=== PATIENT | male | born 1945 | race Caucasian/White ===

== ENCOUNTER 2020-03-14 15:50 | Inpatient (IN) | payer MEDICARE, OTHER ==
[~2020-03-14] VITALS: Ht 157.5 cm; Wt 87.5 kg
[~2020-03-14 15:50] MED LIST: ASPI-1238 PO; ASPI-808 PO; ATOR20TA66 PO; CLOP75TA28 PO; LISI-556 PO; PANT40TA52 PO
--- NOTE | 2020-03-14 16:11 | ED General ---
General Chief Complaint: General Problems/Pain Stated Complaint: INABILITY TO MOVE Nursing Triage Note: PT BROUGHT IN BY BROTHER AND FRIEND FOR INABILITY TO WALK. BROTHER STATES HE WENT TO CHECK ON PT AND FOUND PT SITTING IN CHAIR UNABLE TO MOVE. PT TOLD HIM HED BEEN SITTING THERE FOR 2-3 DAYS. PT IS ALERT AND ORIENTED. PT IS COVERED IN URINE AND FECES. PT IS COMPLAINING OF INABILITY TO WALK, AND SKIN ISSUES ON GENITAL AREA. PT HAS SORES AND SCABBING TO GENITAL AND HIP AREAS. PT DOES NOT KNOW WHEN SYMPTOMS STARTED, STATES WOKE UP WITH THEM. Nursing Sepsis Screen: No Definite Risk History of Present Illness Date Seen by Provider: Mar 14, 2020 Time Seen by Provider: 16:10 Initial Comments Patient is a 74-year-old male who presents to the emergency room with a chief complaint of generalized weakness. Patient states that he has not been able to move for a couple of days. He seems to be a poor historian. No specific complaints of chest pain, shortness of breath, abdominal pain. Reportedly the patient is homeless and was found by his brother sitting in a chair. Patient states he has been unable to move out of the chair for 2 or 3 days. He is grossly unkempt. Patient alert staff to a rash on his genital area presentation. He appears quite tired and like he does not feel well. No specific complaints of dysuria, urgency, frequency. Review of systems is difficult secondary to the patient's seeming mild confusion versus some dementia. Timing/Duration: 2-3 Days Severity: Severe Allergies and Home Medications Allergies Coded Allergies: No Known Drug Allergies (Unverified , 03/14/20) Home Medications Amlodipine Besylate 5 Mg Tablet, 5 MG PO DAILY, (Reported) Atorvastatin Calcium 40 Mg Tablet, 40 MG PO HS, (Reported) Clopidogrel Bisulfate 75 Mg Tablet, 75 MG PO DAILY, (Reported) Hydrochlorothiazide 12.5 Mg Tablet, 12.5 MG PO DAILY, (Reported) Lisinopril 5 Mg Tablet, 5 MG PO DAILY, (Reported) Patient Home Medication List Home Medication List Reviewed: Yes Review of Systems Review of Systems Constitutional: malaise EENTM: no symptoms reported Respiratory: no symptoms reported Cardiovascular: no symptoms reported Gastrointestinal: no symptoms reported Genitourinary: no symptoms reported Musculoskeletal: muscle pain Skin: rash All Other Systems Reviewed Negative Unless Noted: Yes Past Ztcloue-Njpahn-Hwudcj Hx Patient Social History Alcohol Use: Past History Recreational Drug Use: No Smoking Status: Former Smoker Type Used: Cigarettes, Smokeless Tobacco Recent Foreign Travel: No Contact w/Someone Who Travel: No Recent Infectious Disease Expo: No Recent Hopitalizations: No Immunizations Up To Date Tetanus Booster (TDap): Unknown Past Medical History Surgeries: Yes Respiratory: Yes Cardiac: Yes Neurological: Yes Stroke HEENT: Yes Hearing Impairment: Hard of Hearing Integumentary: Yes Physical Exam Vital Signs Vital Signs - First Documented 03/14/20 03/14/20 15:50 22:53 Temp 36.5 Pulse 110 Resp 25 B/P (MAP) 88/62 (71) Pulse Ox 97 O2 Delivery Room Air FiO2 21 Capillary Refill : Less Than 3 Seconds Height, Weight, BMI Height: '" Weight: lbs. oz. kg; 39.00 BMI Method: General Appearance: No Apparent Distress, Chronically ill Eyes: Bilateral Eye Normal Inspection, Bilateral Eye PERRL, Bilateral Eye EOMI Neck: Full Range of Motion Respiratory: Lungs Clear, Normal Breath Sounds, No Accessory Muscle Use, No Respiratory Distress Cardiovascular: Regular Rate, Rhythm, No Murmur Gastrointestinal: Non Tender, Soft Extremity: Normal Capillary Refill, Normal Inspection, Normal Range of Motion, Non Tender Neurologic/Psychiatric: Alert, Oriented x3, No Motor/Sensory Deficits, Normal Mood/Affect, die maker II-XII Norm as Tested Skin: Warm/Dry, Other (Patient has erythema in the grown with skin breakdown over the perineum, scrotum, penis. Galded rash extends to the buttocks. macerated in patchy areas. No indurations. No crepitance to the skin. tender to palpation) Focused Exam Sepsis Stage: Severe Sepsis Possible Source: Skin/Soft Tissue Lactate Level 03/14/20 16:15: Lactic Acid Level 8.32*H 03/14/20 17:56: Lactic Acid Level 1.67 Time of Focused Exam: 16:15 Respiratory: Lungs Clear, Normal Breath Sounds Cardiovascular: Regular Rate, Rhythm, Tachycardia Peripheral Pulses: 2+ Radial Pulses (R), 2+ Radial Pulses (L) Skin: warm/dry Lactic Acid Level Within 3hrs of presentation: Admin fluids, Admin 30ml/kg IBW due to BMI>30, Admin ABX, Blood cultures prior to ABX's, Focus exam, Lactate level Progress/Results/Core Measures Suspected Sepsis Recent Fever Within 48 Hours: No Infection Criteria Present: None New/Unexplained Altered Menta: No Sepsis Screen: No Definite Risk Within 3hrs of presentation: Admin fluids, Admin 30ml/kg IBW due to BMI>30, Admin ABX, Blood cultures prior to ABX's, Lactate level SIRS Temperature: Pulse: 110 Respiratory Rate: 25 Laboratory Tests 03/15/20 03:04: White Blood Count 8.0 03/16/20 05:38: White Blood Count 5.6 03/17/20 05:27: White Blood Count 4.5 Blood Pressure 88 /62 Mean: 71 03/14/20 16:15: Lactic Acid Level 8.32*H 03/14/20 17:56: Lactic Acid Level 1.67 Laboratory Tests 03/14/20 16:15: Total Bilirubin 1.0 03/15/20 03:04: Creatinine 1.95H, Platelet Count 232 03/16/20 05:38: Creatinine 1.35H, Platelet Count 210 03/17/20 05:27: Creatinine 1.23, Platelet Count 194 Results/Orders Lab Results Laboratory Tests Test 03/16/20 05:38 03/17/20 05:27 Range/Units White Blood Count 5.6 4.5 4.3-11.0 10^3/uL Red Blood Count 3.21 L 3.36 L 4.30-5.52 10^6/uL Hemoglobin 9.6 L 9.9 L 13.3-17.7 g/dL Hematocrit 30 L 31 L 40-54 % Mean Corpuscular Volume 94 93 80-99 fL Mean Corpuscular Hemoglobin 30 30 25-34 pg Mean Corpuscular Hemoglobin Concent 32 32 32-36 g/dL Red Cell Distribution Width 13.5 13.3 10.0-14.5 % Platelet Count 210 194 130-400 10^3/uL Mean Platelet Volume 10.7 10.6 9.0-12.2 fL Immature Granulocyte % (Auto) 0 0 % Neutrophils (%) (Auto) 83 H 77 H 42-75 % Lymphocytes (%) (Auto) 9 L 13 12-44 % Monocytes (%) (Auto) 5 6 0-12 % Eosinophils (%) (Auto) 2 4 0-10 % Basophils (%) (Auto) 0 0 0-10 % Neutrophils # (Auto) 4.6 3.5 1.8-7.8 10^3/uL Lymphocytes # (Auto) 0.5 L 0.6 L 1.0-4.0 10^3/uL Monocytes # (Auto) 0.3 0.3 0.0-1.0 10^3/uL Eosinophils # (Auto) 0.1 0.2 0.0-0.3 10^3/uL Basophils # (Auto) 0.0 0.0 0.0-0.1 10^3/uL Immature Granulocyte # (Auto) 0.0 0.0 0.0-0.1 10^3/uL Sodium Level 138 139 135-145 MMOL/L Potassium Level 3.7 3.6 3.6-5.0 MMOL/L Chloride Level 113 H 112 H 98-107 MMOL/L Carbon Dioxide Level 16 L 17 L 21-32 MMOL/L Anion Gap 9 10 5-14 MMOL/L Blood Urea Nitrogen 39 H 24 H 7-18 MG/DL Creatinine 1.35 H 1.23 0.60-1.30 MG/DL Estimat Glomerular Filtration Rate 52 58 BUN/Creatinine Ratio 29 20 Glucose Level 88 98 70-105 MG/DL Calcium Level 7.6 L 7.5 L 8.5-10.1 MG/DL Phosphorus Level 2.4 2.3-4.7 MG/DL Magnesium Level 2.0 1.7 1.6-2.4 MG/DL Total Creatine Kinase 2629 H 30-200 U/L My Orders Vital Signs/I&O 03/16/20 03/16/20 03/16/20 03/17/20 19:37 21:00 23:54 03:59 Temp 36.0 36.5 36.6 Pulse 101 64 89 Resp 18 21 20 B/P (MAP) 112/73 (86) 141/56 (84) 152/76 (101) Pulse Ox 96 99 96 97 O2 Delivery Room Air Room Air Room Air Room Air Capillary Refill : Less Than 3 Seconds Blood Pressure Mean: 71 Progress Note : Time: 17:20 Progress Note 74-year-old male presents to the emergency room with a chief complaint of 2-week to walk. Evaluation today includes a physical exam, severe sepsis work-up including Chem-12 lactic acid CRP CBC urinalysis blood cultures chest x-ray. Patient is volume resuscitated with 3 L of IV as per 30 mL/kg of fluids bolus. Blood pressure initially systolic of 88 has rebounded nicely with only the first liter of fluids to a systolic of 130s. Case is discussed with Dr. Mary Angel on for the hospitalist group who accepts the patient for admission to the ICU as well as Dr. Tenorio who is on-call for general surgery regarding the infection/cellulitis in his groin and buttocks. Patient is advised of the plan of care, he is agreeable. All questions are sought and answered. I attest a focused exam. Critical Care Note Critical Care Start Time: 16:10 Stop Time: 17:20 Total Time (minutes) 40 minutes critical care time in the evaluation and management of this patient with lactic acidosis, severe sepsis acute renal failure secondary to rhabdomyolysis. Evaluation and management of fluid resuscitation, discussion with hospitalist as well as discussion with general surgery Departure Communication (Admissions) Time/Spoke to Admitting Phy: 17:10 Discussed with Mary Martínez on for hospitalist group recommends ICU admission consultation with general surgery Time/Spoke to Consulting Phy: 17:[address] Tenorio on for general surgery he will see Impression Primary Impression: Severe sepsis Additional Impressions: Acute renal failure Qualified Codes: N17.9 - Acute kidney failure, unspecified Rhabdomyolysis Qualified Codes: M62.82 - Rhabdomyolysis Disposition: 09 ADMITTED INPATIENT Condition: Critical Admissions Decision to Admit Reason: Admit from ER (General) Decision to Admit/Date: Mar 14, 2020 Time/Decision to Admit Time: 17:15 WILMER DAVID MD Mar 14, 2020 16:11
[2020-03-14] MEDS: NS IV 1000 ML 1,000 ML IV SCH ×5 (16:23→23:30)
[2020-03-14 16:27] LABS: BASOPHILS % (AUTO) 0 % (0-10); EOSINOPHILS % (AUTO) 0 % (0-10); HEMATOCRIT 45 % (40-54); HEMOGLOBIN 14.5 g/dL (13.3-17.7); LYMPHOCYTES # (AUTO) 0.4 10^3/uL (1.0-4.0); LYMPHOCYTES % (AUTO) 3 % (12-44); MEAN CORPUSCULAR HEMOGLOBIN 30 pg (25-34); MEAN CORPUSCULAR HGB CONC 32 g/dL (32-36); MEAN CORPUSCULAR VOLUME 93 fL (80-99); MEAN PLATELET VOLUME 10.4 fL (9.0-12.2); MONOCYTES # (AUTO) 0.8 10^3/uL (0.0-1.0); MONOCYTES % (AUTO) 6 % (0-12); NEUTROPHILS % (AUTO) 90 % (42-75); PLATELET COUNT 370 10^3/uL (130-400); WHITE BLOOD COUNT 12.2 10^3/uL (4.3-11.0)
[2020-03-14 16:32] LABS: CLARITY,URINE CLEAR; COLOR,URINE YELLOW; GLUCOSE, URINE (UA) NEGATIVE (NEGATIVE); KETONES,URINE TRACE (NEGATIVE); LEUKOCYTE ESTERASE ,URINE NEGATIVE (NEGATIVE); NITRITE,URINE NEGATIVE (NEGATIVE); PH,URINE 5.5 (5-9); PROTEIN,URINE 1+ (NEGATIVE)
[2020-03-14 16:41] LABS: ALBUMIN 4.4 GM/DL (3.2-4.5)
[2020-03-14 16:42] LABS: POTASSIUM 5.7 MMOL/L (3.6-5.0)
[2020-03-14 16:43] LABS: CALCIUM 10.2 MG/DL (8.5-10.1)
[2020-03-14 16:44] LABS: TOTAL PROTEIN 7.9 GM/DL (6.4-8.2)
[2020-03-14 16:48] LABS: CREATININE SERUM 2.34 MG/DL (0.60-1.30)
[2020-03-14 16:52] LABS: BAND NEUTROPHILS 0 %; BASOPHILS % (MANUAL) 0 %; EOSINOPHILS % (MANUAL) 0 %; LYMPHOCYTES % (MANUAL) 4 %; MONOCYTES % (MANUAL) 2 %; NEUTROPHILS % (MANUAL) 94 %; POIKILOCYTOSIS SLIGHT
[2020-03-14 16:57] LABS: BILIRUBIN,URINE 1+ (NEGATIVE)
--- NOTE | 2020-03-14 16:57 | Diagnostic Imaging Report ---
INDICATION: Sepsis. COMPARISON: 02/06/2015. FINDINGS: Lungs are clear. No failure, effusion or pneumothorax. IMPRESSION: Negative. Dictated by: Dictated on workstation # [id number]
[2020-03-14 16:59] LABS: AMORPHOUS SEDIMENT,UR FEW AMOR URATES /LPF; BACTERIA,URINE TRACE /HPF; GRANULAR CASTS,URINE 0-2 /LPF; HYALINE CASTS, URINE RARE /LPF; RBC,URINE RARE /HPF; WBC,URINE RARE /HPF
[2020-03-14] MEDS ORDERED: NS IV 1000 ML 1,000 ML IV SCH (16:59)
[2020-03-14] MEDS ORDERED: VANCOMYCIN INJECTION 1,000 MG in NS (IVPB) 250 ML IV ONE (17:00)
[2020-03-14] MEDS ORDERED: PIPERACILLIN SODIUM/TAZOBACTAM 4.5 GM in NS (IVPB) 100 ML IV ONE (17:00)
--- NOTE | 2020-03-14 19:16 | NUR ---
RECEIVED FROM ED, 74 YEAR OLD MALE WITH DX OF SEVERE SEPSIS, AND CELLULITIS. PT IS ALERT AND ORIENTED. STATES HE HASN'T BEEN ABLE TO WALK FOR A "FEW DAYS" AND HAS BEEN IN HIS RECLINER. BROTHER FOUND HIM SITTING IN URINE AND FECES. HE IS GUALDED TO THE POINT OF SCABS IN BILAT GROINS, TECTICLES, BUTTOCKS AND BACKS OF LEGS. WOUND CULTURE OBTAINED. ZINC OXIDE CREAM PLACED AFTER CLEANING. IV TO LEFT AC CAME OUT UPON TRANSFER TO BED. NEW ONE TO RIGHT WRIST BY JOHAN RODRIGUEZ AFTER MULTIPLE ATTEMPTS. PT IS NPO BUT KEEPS REQUESTING SOMETHING TO DRINK. DR FAJARDO CALLED, ORDER RECEIVED FOR CLEAR LIQUID DIET.
[2020-03-14] MEDS ORDERED: VASOPRESSIN INJECTION 20 UNIT in NS (IVPB) 100 ML IV SCH (19:24)
[2020-03-14] MEDS ORDERED: NOREPINEPHRINE 4 MG/250 ML 250 ML IV SCH (19:24)
[2020-03-14 19:30] VITALS: BP 140/67
[2020-03-14] MEDS ORDERED: EPINEPHrine 1 MG INJECTION 4 MG in NS (IVPB) 248 ML IV SCH (19:30)
[2020-03-14] MEDS ORDERED: CATHETER FLUSH 10 ML SYR IV PRN (19:30)
--- NOTE | 2020-03-14 19:30 | NUR ---
PT'S BROTHER, CHI, IS EMERGENCY CONTACT BUT PT DOES NOT KNOW HIS NUMBER
--- NOTE | 2020-03-14 19:36 | NUR ---
CR 2.34; CR CL ~28 (USED ADJ WT 71.7 KG); ACTUAL WT 97.5 KG; VANCO 1500 MG IV Q24H X 3 DAYS
[2020-03-14 20:00] VITALS: BP 93/57
[2020-03-14] MEDS ORDERED: VANCOMYCIN 1500 MG/NS 500 ML IVPB IV SCH ×2 (20:00)
[2020-03-14 21:00] VITALS: BP 116/62
[2020-03-14 22:00] VITALS: BP 99/58
[2020-03-14] MEDS ORDERED: KETOROLAC 15 MG/ML VIAL IVP ONE (22:15)
[2020-03-14] MEDS ORDERED: KETOROLAC 15 MG/ML VIAL ONE (22:21)
[2020-03-14 22:53] VITALS: BP 140/67
[2020-03-14] MEDS ORDERED: RT-ALBUTEROL SULF 2.5 MG/3 ML PRE-MIX VIAL INH PRN (23:00)
[2020-03-14 23:15] VITALS: BP 109/54
[2020-03-15] VITALS (20 sets, daily range): BP systolic 94–125; BP diastolic 40–67
[2020-03-15] MEDS: PIPERACILLIN/TAZO 4.5 GM/NS 100 ML IV SCH ×6 (00:58→16:27)
[2020-03-15 03:23] LABS: BASOPHILS % (AUTO) 0 % (0-10); EOSINOPHILS % (AUTO) 0 % (0-10); HEMATOCRIT 32 % (40-54); HEMOGLOBIN 10.3 g/dL (13.3-17.7); LYMPHOCYTES # (AUTO) 0.5 10^3/uL (1.0-4.0); LYMPHOCYTES % (AUTO) 6 % (12-44); MEAN CORPUSCULAR HEMOGLOBIN 30 pg (25-34); MEAN CORPUSCULAR HGB CONC 32 g/dL (32-36); MEAN CORPUSCULAR VOLUME 93 fL (80-99); MEAN PLATELET VOLUME 10.3 fL (9.0-12.2); MONOCYTES # (AUTO) 0.6 10^3/uL (0.0-1.0); MONOCYTES % (AUTO) 7 % (0-12); NEUTROPHILS # (AUTO) 6.9 10^3/uL (1.8-7.8); NEUTROPHILS % (AUTO) 87 % (42-75); PLATELET COUNT 232 10^3/uL (130-400)
[2020-03-15 03:38] LABS: POTASSIUM 4.4 MMOL/L (3.6-5.0)
[2020-03-15 03:39] LABS: CALCIUM 7.9 MG/DL (8.5-10.1)
[2020-03-15 03:43] LABS: CREATININE SERUM 1.95 MG/DL (0.60-1.30); PHOSPHORUS 3.9 MG/DL (2.3-4.7)
[2020-03-15 03:46] LABS: MAGNESIUM 2.6 MG/DL (1.6-2.4)
--- NOTE | 2020-03-15 04:23 | Pulmonary Consultation ---
History of Present Illness History of Present Illness Date Seen by Provider: Mar 15, 2020 Time Seen by Provider: 04:19 Date of Admission Allergies and Home Medications Allergies Coded Allergies: No Known Drug Allergies (Unverified , 03/14/20) Past Jazfdhm-Jkgdmg-Bqcydd Hx Patient Social History Alcohol Use: Past History Recreational Drug Use: No Smoking Status: Former Smoker Type Used: Cigarettes, Smokeless Tobacco Recent Foreign Travel: No Contact w/Someone Who Travel: No Recent Infectious Disease Expo: No Recent Hopitalizations: No Immunizations Up To Date Tetanus Booster (TDap): Unknown Past Medical History Surgeries: Yes Respiratory: Yes Cardiac: Yes Neurological: Yes Stroke HEENT: Yes Hearing Impairment: Hard of Hearing Integumentary: Yes Sepsis Event Evaluation Height, Weight, BMI Height: '" Weight: lbs. oz. kg; 35.03 BMI Method: Exam Exam Vital Signs Date Time Temp Pulse Resp B/P (MAP) Pulse Ox O2 Delivery O2 Flow Rate FiO2 03/15/20 00:00 36.8 03/14/20 23:31 96 Room Air 03/14/20 22:53 36.5 93 96 21 03/14/20 19:40 99 03/14/20 19:30 36.5 93 25 140/67 (91) 96 Room Air 03/14/20 18:48 93 23 109/62 94 Room Air 03/14/20 15:50 36.5 110 25 88/62 (71) 97 Room Air I & O 03/15/20 07:00 Intake Total 4550 ml Output Total 350 ml Balance 4200 ml Height & Weight Height: '" Weight: lbs. oz. kg; 35.03 BMI Method: Respiratory: Lungs Clear, Normal Breath Sounds Cardiovascular: Regular Rate, Rhythm, Tachycardia Capillary Refill: Less Than 3 Seconds Peripheral Pulses: 2+ Radial Pulses (R), 2+ Radial Pulses (L) Results Lab Laboratory Tests 03/14/20 16:15 03/15/20 03:04 Assessment/Plan Assessment/Plan Sepsis secondary to Cellulitis -Continue Zosyn and Vanco -IVF Rhabdomylysis -IVF Debility -PT/OT ARF with dehydration -IVF Pt appears to be doing better. I question if pt has chronic dementia. HEATHER CONTRERAS DO Mar 15, 2020 04:23
[2020-03-15] MEDS ORDERED: PHARMACY TO DOSE IV SCH (04:30)
[2020-03-15] MEDS: NS IV 1000 ML 1,000 ML IV SCH ×5 (05:50→20:46)
[2020-03-15] MEDS: KCL 20 MEQ TAB (K-DUR) PO SCH (05:52)
[2020-03-15] MEDS ORDERED: MAGNESIUM 1 GM/100 ML IVPB 100 ML IV SCH (06:00)
[2020-03-15] MEDS ORDERED: POTASSIUM CL 10MEQ/50ML IVPB 50 ML IV SCH (06:00)
[2020-03-15] MEDS ORDERED: FLU QUAD HIGH DOSE 240 MCG/0.7 ML 2020-21 (FLUZONE) IM ONE (07:00)
--- NOTE | 2020-03-15 08:37 | Diagnostic Imaging Report ---
Clinical indications: Patient with severe sepsis and cellulitis. Followup ICU care. Exam: Portable chest x-ray upright view. Comparisons: Portable chest x-ray dated 03/14/2020. Findings: There is elevation of the right hemidiaphragm seen with progression of right basilar atelectasis. There is mild left basilar atelectasis which is slightly progressed. There is no definite lung infiltrate. There is no pleural effusion or pneumothorax. Pulmonary vasculature and cardiac silhouette is within normal limits. There are degenerative spurs involving the thoracic spine. Impression: 1: There is interval development of mild bibasilar atelectasis. There is elevation of right hemidiaphragm seen. There is no definite lung infiltrate seen. Dictated by: Dictated on workstation # [id number]
--- NOTE | 2020-03-15 08:51 | History & Physical-Hospitalist ---
History of Present Illness HPI/Chief Complaint Pt is a 74yoCM who presented to the ER due to weakness. He is unsure why he is here. He knows his little brother bought him here and that he was weak but is unsure about any other details. He is unsure if he has pain. All other information is obtained from the records. Apparently he was brought in by his brother and friend due to inability to walk. His brother found him sitting in chair covers in urine and feces. Apparently he had been there for 2-3 days unable to move. Patient does not recall this. He was found to have cellulitis of his scrotum with a lactic acid of over 8 and hypotension. He was admitted to the ICU for sepsis. Source: patient Date Seen 03/15/20 Time Seen by a Provider: 08:46 Attending Physician Leonidas Martínez MD PCP Referring Physician Date of Admission Mar 14, 2020 at 18:26 Home Medications & Allergies Home Medications Reviewed patient Home Medication Reconciliation performed by pharmacy medication reconciliations endoscopic technician and/or nursing. Patients Allergies have been reviewed. Allergies Allergies Coded Allergies No Known Drug Allergies (Qftuttywtj62/5/20) Past Afkzsla-Evodnr-Xqzydd Hx Past Med/Social Hx: Reviewed Nursing Past Med/Soc Hx Patient Social History Alcohol Use: Past History Recreational Drug Use: No Smoking Status: Former Smoker Type Used: Cigarettes, Smokeless Tobacco Recent Foreign Travel: No Contact w/other who traveled: No Recent Hopitalizations: No Recent Infectious Disease Expo: No Immunizations Up To Date Tetanus Booster (TDap): Unknown Past Medical History Neurological: Stroke Hearing Impairment: Hard of Hearing Family History Reviewed Nursing Family Hx No Pertinent Family Hx Review of Systems ROS-Unable to Obtain: poor historian Constitutional: see HPI Physical Exam Physical Exam Vital Signs Vital Signs - First Documented 03/14/20 03/14/20 15:50 22:53 Temp 36.5 Pulse 110 Resp 25 B/P (MAP) 88/62 (71) Pulse Ox 97 O2 Delivery Room Air FiO2 21 Capillary Refill : Less Than 3 Seconds Height, Weight, BMI Height: '" Weight: lbs. oz. kg; 35.03 BMI Method: General Appearance: No Apparent Distress, Chronically ill, Obese HEENT: PERRL/EOMI, Moist Mucous Membranes Neck: Normal Inspection, Supple Respiratory: Lungs Clear, No Accessory Muscle Use, No Respiratory Distress Cardiovascular: Regular Rate, Rhythm, No Murmur Gastrointestinal: Normal Bowel Sounds, Non Tender, Soft Genital/Rectal: Other (arriola in place) Extremity: Normal Capillary Refill, No Calf Tenderness, Pedal Edema Neurologic/Psychiatric: Alert, Other (oriented to person and place only) Skin: Normal Color, Erythema (and skin breakdown around scrotum) Results Results/Procedures Labs Laboratory Tests 03/14/20 16:15 03/15/20 03:04 Patient resulted labs reviewed. Imaging: Reviewed Imaging Report [facility] [place] [place] NAME: WOO KELLEY [facility] REC#: [id number] PT STATUS: REG ER : 1945 PHYSICIAN: WILMER DAVID MD ADMIT DATE: 03/14/20/ER Signed Date of Exam:03/14/20 CHEST 1 VIEW, AP/PA ONLY INDICATION: Sepsis. COMPARISON: 02/06/2015. FINDINGS: Lungs are clear. No failure, effusion or pneumothorax. IMPRESSION: Negative. Dictated by: Dictated on workstation # [id number] Dict: 03/14/201648 Trans: 03/14/201655 [facility] [id number] Interpreted by: IDANIA CLARK Electronically signed by: IDANIA CLARK 03/14/201655 [facility] [place] [place] NAME: WOO KELLEY [facility] REC#: [id number] PT STATUS: ADM IN : 1945 PHYSICIAN: LEONIDAS MARTÍNEZ MD ADMIT DATE: 03/14/20/ICU Draft Date of Exam:03/15/20 CHEST 1 VIEW, AP/PA ONLY Clinical indications: Patient with severe sepsis and cellulitis. Followup ICU care. Exam: Portable chest x-ray upright view. Comparisons: Portable chest x-ray dated 03/14/2020. Findings: There is elevation of the right hemidiaphragm seen with progression of right basilar atelectasis. There is mild left basilar atelectasis which is slightly progressed. There is no definite lung infiltrate. There is no pleural effusion or pneumothorax. Pulmonary vasculature and cardiac silhouette is within normal limits. There are degenerative spurs involving the thoracic spine. Impression: 1: There is interval development of mild bibasilar atelectasis. There is elevation of right hemidiaphragm seen. There is no definite lung infiltrate seen. Dictated on workstation # [id number] Dict: 03/15/20 0753 Trans: 03/15/20 0836 CVB [id number] Interpreted by: PADDY BHATT MD Electronically signed by: Assessment/Plan Admission Diagnosis Septic Shock due to Cellulitis Admission Status: Inpatient Order (span 2 midnights) Reason for Inpatient Admission: see below Assessment and Plan Septic Shock Cellulitis Pulm and Surgery consulted, appreciate recs Continue IV abx Lactic acidosis resolved Strep pne and legionella ag pending BP still on the softer side but maintaining MAP so no indication for pressors NETTA Rhabdomyolysis transaminitis Continue IVF Monitor UOP Creatinine improving PT/OT HTN Hold BP meds for hypotension HLD Hold statin for transaminitis DVT ppx: Lovenox Critical Care Critically Ill Patient Diagnosis/Problems Diagnosis/Problems (1) Cellulitis Qualifiers: Site of cellulitis: unspecified site Qualified Codes: L03.90 - Cellulitis, unspecified (2) Rhabdomyolysis Status: Acute Qualifiers: Rhabdomyolysis type: non-traumatic Qualified Codes: M62.82 - Rhabdomyolysis (3) Acute renal failure Status: Acute Qualifiers: Acute renal failure type: unspecified Qualified Codes: N17.9 - Acute kidney failure, unspecified (4) Septic shock Status: Acute Clinical Quality Measures DVT/VTE Risk/Contraindication: Risk Factor Score Per Nursin RFS Level Per Nursing on Admit: 4+=Very High LEONIDAS MARTÍNEZ MD Mar 15, 2020 08:51
[2020-03-15] MEDS ORDERED: ENOXAPARIN 30 MG/0.3 ML (LOVENOX) SYR SC SCH (09:15)
[2020-03-15] MEDS ORDERED: LACTATED RINGERS 1,000 ML IV ONE ×2 (09:56→10:00)
[2020-03-15] MEDS: ENOXAPARIN 40 MG/0.4 ML (LOVENOX) SYR SC SCH (10:01)
--- NOTE | 2020-03-15 10:33 | Physical Therapy Evaluation ---
PT Evaluation-General Medical Diagnosis Admission Date Mar 14, 2020 at 18:26 Medical Diagnosis: severe sepsis/cellulitis Onset Date: Mar 14, 2020 Therapy Diagnosis Therapy Diagnosis: generalized weakness/debility Precautions Precautions/Isolations: Standard Precautions Referral Physician: Sheree Reason for Referral: Evaluation/Treatment Medical History Pertinent Medical History: CVA (TIA) Current History ER secondary to patient found by family up in a chair covered in urine and feces. Per patient, he had been there x 2-3 days and unable to walk. Reviewed History: Yes Social History Home: Single Level Current Living Status: Alone Prior Prior Level of Function SCALE: Activities may be completed with or without assistive devices. 4-Yrrwrwfosk-wewmsfb completes the activity by him/herself with no assistance from a helper. 5-Set-up or Clean-up Assistance-helper sets up or cleans up; patient completes activity. [place] assists only prior to or following the activity. 4-Supervision or Touching Assistance-helper provides verbal cues and/or touching/steadying and/or contact guard assistance as patient completes activity. Assistance may be provided throughout the activity or intermittently. 3-Partial/Moderate Assistance-helper does LESS THAN HALF the effort. [place] lifts, holds or supports trunk or limbs, but provides less than half the effort. 2-Substantial/Maximal Assistance-helper does MORE THAN HALF the effort. [place] lifts or holds trunk or limbs and provides more than half the effort. 6-Wafyhjvkw-fagotp does ALL the effort. Patient does none of the effort to complete the activity. Or, the assistance of 2 or more helpers is required for the patient to complete the activity. If activity was not attempted, code reason: 7-Patient Refused. 9-Not Applicable-not attempted and the patient did not perform the activity before the current illness, exacerbation or injury. 10-Not Attempted due to Environmental Limitations-(lack of equipment, weather restraints, etc.). 88-Not Attempted due to Medical Conditions or Safety Concerns. Bed Mobility: 6 Transfers (B,C,W/C): 6 Gait: 6 Indoor Mobility (Ambulation): Independent PT Evaluation-Current Subjective Patient unable to answer question appropriately and becomes agitated with direction. Objective Patient Orientation: Confused Attachments: Blanchard Catheter, IV ROM/Strength ROM Lower Extremities bilateral LE WFL Strength Lower Extremities 3-/5 grossly bilateral LE with inability to formally test due to patient no following direction. Integumentary/Posture Integumentary multiple skin abrasions/medina on genitals and gluteal region from incontinence of urine and feces Bowel Incontinence: Yes Bladder Incontinence: Blanchard Cath Neuromuscular (Tone, Coordination, Reflexes) grossly intact with bed mobility activity Sensory Vision: Functional Hearing: Impaired Transfers Roll Left to Right (QC): 2 (x 2) Sit to Lying (QC): 7 Lying to Sitting/Side of Bed(Q: 7 Sit to Stand (QC): 7 Chair/Uzx-zk-Nuzmu Xfer(QC): 7 patient became highly agitated with request of OOB activity Gait Does the Patient Walk?: No and Walking Goal IS indicated Treatment rolling activity with cleansing patient due to dried fecal matter on patient's genitals, groin and gluteal region with zinc applied after. Assessment/Needs 74 y.o. male, will benefit from skilled PT to address functional strength and mobility to improve current LOF. Patient is currently adamant to not perform OOB activity and this was highly encouraged. Patient did become agitated. Rehab Potential: Poor PT Plasterer Journeyman Goals Plasterer Journeyman Goals PT Plasterer Journeyman Goals Time Frame: Apr 06, 2020 Roll Left & Right (QC): 4 Sit to Lying (QC): 4 Lying-Sitting on Side/Bed(QC): 4 Sit to Stand (QC): 4 Chair/Mmo-lz-Tmuyf Xfer(QC): 4 Toilet Transfer (QC): 4 Does the Patient Walk: No and Walking Goal IS indicated Walk 10 feet (QC): 4 Walk 50ft with 2 Turns (QC): 4 Walk 150 ft (QC): 4 PT Plan Problem List Problem List: Activity Tolerance, Functional Strength, Safety, Balance, Gait, Transfer, Bed Mobility Treatment/Plan Treatment Plan: Continue Plan of Care Treatment Plan: Bed Mobility, Education, Functional Activity Oksana, Functional Strength, Gait, Safety, Therapeutic Exercise, Transfers Treatment Duration: Apr 06, 2020 Frequency: 5 times per week (increase to 6/wk when patient complies with OOB activity) Estimated Hrs Per Day: .5 hour per day Discharge Recommendations Therapy Discharge Recommendati: Other, See Comments (shelter facility) Time/GCodes Time In: 925 Time Out: 945 Total Billed Treatment Time: 20 Total Billed Treatment 1 visit EVMod 20 min DERIK MCGOWAN PT Mar 15, 2020 10:33
--- NOTE | 2020-03-15 12:58 | Consultation - Surgery ---
History of Present Illness History of Present Illness Patient Consulted On(rg/time) 03/15/20 12:52 Time Seen by Provider: 10:21 History of Present Illness Surgery asked to consult regarding Cellulitis r/o Lesly's gangrene or fasciitis. HPI per IM: Pt is a 74yoCM who presented to the ER due to weakness. He is unsure why he is here. He knows his little brother bought him here and that he was weak but is unsure about any other details. He is unsure if he has pain. All other information is obtained from the records. Apparently he was brought in by his brother and friend due to inability to walk. His brother found him sitting in chair covers in urine and feces. Apparently he had been there for 2-3 days unable to move. Patient does not recall this. He was found to have cellulitis of his scrotum with a lactic acid of over 8 and hypotension. He was admitted to the ICU for sepsis. When I saw pt this am he seemed to be more alert and answered most questions but refused to answer others. He states pain is minimal and better than yesterday; he seems to remember most of yesterday. Allergies and Home Medications Allergies Coded Allergies: No Known Drug Allergies (Unverified , 03/14/20) Home Medications Aspirin 81 Mg Tablet.dr, 81 MG PO DAILY Prescribed by: ERICK BARNETT on 03/02/15946 Atorvastatin Calcium 20 Mg Tablet, 20 MG PO HS Prescribed by: ERICK BARNETT on 03/02/15946 Clopidogrel Bisulfate 75 Mg Tablet, 75 MG PO DAILY Prescribed by: ERICK BARNETT on 03/02/15946 Lisinopril 5 Mg Tablet, 10 MG PO DAILY Prescribed by: ERICK BARNETT on 03/02/15946 Pantoprazole Sodium 40 Mg Tablet.dr, 40 MG PO DAILY@0700 Prescribed by: ERICK BARNETT on 03/02/15946 Patient Home Medication List Home Medication List Reviewed: Yes Past Xuerwdr-Sdatmt-Gkfuwk Hx Patient Social History Alcohol Use: Past History Recreational Drug Use: No Smoking Status: Former Smoker Type Used: Cigarettes, Smokeless Tobacco Recent Foreign Travel: No Contact w/Someone Who Travel: No Recent Infectious Disease Expo: No Recent Hopitalizations: No Immunizations Up To Date Tetanus Booster (TDap): Unknown Surgeries History of Surgeries: Yes Respiratory History of Respiratory Disorde: Yes Cardiovascular History of Cardiac Disorders: Yes Neurological History of Neurological Disord: Yes Neurological Disorders: Stroke Genitourinary History of Genitourinary Disor: No Gastrointestinal History of Gastrointestinal Di: No Musculoskeletal History of Musculoskeletal Dis: Yes Musculoskeletal Disorders: Arthritis Endocrine History of Endocrine Disorders: No HEENT History of HEENT Disorders: Yes Hearing Impairment: Hard of Hearing Cancer History of Cancer: No Psychosocial History of Psychiatric Problem: Yes Behavioral Health Disorders: Depression Integumentary History of Skin or Integumenta: Yes Family Medical History Significant Family History: Hypertension, Stroke Family Medial History: Completed stroke G8 BROTHER (HX OF 2 CVA) Hypertension G8 BROTHER G8 BROTHER Review of Systems-General Constitutional: chills, malaise, weakness EENTM: No blurred vision, No double vision, No mouth pain, No mouth swelling, No epistaxis Respiratory: No cough, No dyspnea on exertion, No hemoptysis, No phlegm, No short of breath Cardiovascular: No chest pain; edema; No palpitations Gastrointestinal: No abdominal pain, No jaundice, No nausea, No vomiting Genitourinary: No dysuria, No frequency, No hematuria Musculoskeletal: back pain, joint pain, joint swelling, muscle pain, muscle stiffness, muscle weakness Skin: change in color; No change in hair/nails; lesions Psychiatric/Neurological: Depressed, Emotional Problems, Headache; Denies Seizure; Weakness Other pt denies any hx of abnormal bleeding or bruising Physical Exam-General Problems Physical Exam Vital Signs Vital Signs - First Documented 03/14/20 03/14/20 15:50 22:53 Temp 36.5 Pulse 110 Resp 25 B/P (MAP) 88/62 (71) Pulse Ox 97 O2 Delivery Room Air FiO2 21 Capillary Refill : Less Than 3 Seconds General Appearance: WD/WN, no apparent distress Eyes: Bilateral Eye PERRL, Bilateral Eye EOMI HEENT: pharynx normal; No scleral icterus (R), No scleral icterus (L) Neck: non-tender, supple Respiratory: lungs clear, no respiratory distress, no accessory muscle use, decreased breath sounds (at bases) Cardiovascular: no murmur, tachycardia Gastrointestinal: non tender, soft, no organomegaly, no pulsatile mass Genital/Rectal: normal genital exam, other (pt has some erythema and cellulitis of the scrotum, he has scabbing and lesions all around this area in inguinal creases, supra-pubic area, even on legs) Back: no CVA tenderness, no vertebral tenderness Extremities: no calf tenderness, normal capillary refill, pedal edema Neurologic/Psychiatric: bill distributor II-XII nml as tested, alert Skin: other (see description) Lymphatic: no adenopathy (neck, axilla or groin) Data Review Labs Laboratory Tests 03/14/20 16:08: Glucometer 156H 03/14/20 16:15: White Blood Count 12.2H, Red Blood Count 4.87, Hemoglobin 14.5, Hematocrit 45, Mean Corpuscular Volume 93, Mean Corpuscular Hemoglobin 30, Mean Corpuscular Hemoglobin Concent 32, Red Cell Distribution Width 13.6, Platelet Count 370, Mean Platelet Volume 10.4, Immature Granulocyte % (Auto) 1, Neutrophils (%) (Auto) 90H, Lymphocytes (%) (Auto) 3L, Monocytes (%) (Auto) 6, Eosinophils (%) (Auto) 0, Basophils (%) (Auto) 0, Neutrophils # (Auto) 11.0H, Lymphocytes # (Auto) 0.4L, Monocytes # (Auto) 0.8, Eosinophils # (Auto) 0.0, Basophils # (Auto) 0.0, Immature Granulocyte # (Auto) 0.1, Neutrophils % (Manual) 94, Lymphocytes % (Manual) 4, Monocytes % (Manual) 2, Eosinophils % (Manual) 0, Basophils % (Manual) 0, Band Neutrophils 0, Poikilocytosis SLIGHT, Sodium Level 142, Potassium Level 5.7H, Chloride Level 104, Carbon Dioxide Level 13L, Anion Gap 25H, Blood Urea Nitrogen 85H, Creatinine 2.34H, Estimat Glomerular Filtration Rate 27, BUN/Creatinine Ratio 36, Glucose Level 156H, Lactic Acid Level 8.32*H, Calcium Level 10.2H, Corrected Calcium 9.9, Total Bilirubin 1.0, Aspartate Amino Transf (AST/SGOT) 211H, Alanine Aminotransferase (ALT/SGPT) 56H, Alkaline Phosphatase 79, Total Creatine Kinase 6024H, C-Reactive Protein High Sensitivity 10.33H, Total Protein 7.9, Albumin 4.4 03/14/20 16:26: Urine Color YELLOW, Urine Clarity CLEAR, Urine pH 5.5, Urine Specific [place] 1.025H, Urine Protein 1+H, Urine Glucose (UA) NEGATIVE, Urine Ketones TRACEH, Urine Nitrite NEGATIVE, Urine Bilirubin 1+H, Urine Urobilinogen 0.2, Urine Leukocyte Esterase NEGATIVE, Urine RBC (Auto) 3+H, Urine RBC RARE, Urine WBC RARE, Urine Squamous Epithelial Cells NONE, Urine Crystals PRESENTH, Urine Amorphous Sediment FEW GUILHERME URATESH, Urine Bacteria TRACE, Urine Casts PRESENT, Urine Hyaline Casts RARE, Urine Granular Casts 0-2H, Urine Mucus NEGATIVE, Urine Culture Indicated NO 03/14/20 17:56: Lactic Acid Level 1.67 03/14/20 20:06: 03/15/20 03:04: White Blood Count 8.0, Red Blood Count 3.47L, Hemoglobin 10.3#L, Hematocrit 32L, Mean Corpuscular Volume 93, Mean Corpuscular Hemoglobin 30, Mean Corpuscular Hemoglobin Concent 32, Red Cell Distribution Width 13.8, Platelet Count 232, Mean Platelet Volume 10.3, Immature Granulocyte % (Auto) 1, Neutrophils (%) (Auto) 87H, Lymphocytes (%) (Auto) 6L, Monocytes (%) (Auto) 7, Eosinophils (%) (Auto) 0, Basophils (%) (Auto) 0, Neutrophils # (Auto) 6.9, Lymphocytes # (Auto) 0.5L, Monocytes # (Auto) 0.6, Eosinophils # (Auto) 0.0, Basophils # (Auto) 0.0, Immature Granulocyte # (Auto) 0.0, Sodium Level 142, Potassium Level 4.4, Chloride Level 115#H, Carbon Dioxide Level 16L, Anion Gap 11, Blood Urea Nitrogen 77H, Creatinine 1.95H, Estimat Glomerular Filtration Rate 34, BUN/Creatinine Ratio 39, Glucose Level 109H, Calcium Level 7.9L, Phosphorus Level 3.9, Magnesium Level 2.6H, Procalcitonin 0.69H 03/15/20 03:05: Total Creatine Kinase 5359#H Assessment/Plan Assessment/Plan Assessment/Plan Cellulitis with scabs/sores in inguinal and groin region Atelectasis Rhabdomyolysis Acute Renal failure Sepsis Pt was admitted for Sepsis with elevated Lactic acid, Rhabdomyolysis and acute renal failure. His renal function is improving and CK is slowly coming down. I do not think he has any Lesly's gangrene or fasciitis; he has more of a mild cellulitis no obvious abscess seen. Local care for the scabs and sores, will monitor erythema on his scrotum; no indication for surgery at this time. Will follow along, thank you for the consult. Clinical Quality Measures DVT/VTE Risk/Contraindication: Risk Factor Score Per Nursin RFS Level Per Nursing on Admit: 4+=Very High RICHARD FAJARDO DO Mar 15, 2020 12:57
[2020-03-15] MEDS ORDERED: ATOR40TA70 PO (13:32)
[2020-03-15] MEDS ORDERED: CLOP75TA69 PO (13:32)
[2020-03-15] MEDS ORDERED: LISI-556 PO (13:32)
[2020-03-15] MEDS ORDERED: AMLO-250 PO (13:32)
[2020-03-15] MEDS ORDERED: HYDR12.56 PO (13:32)
--- NOTE | 2020-03-15 13:32 | NUR ---
SPOKE WITH THE PT, WENT THRU THE EXT MED HISTORY, GOT A MED LIST FROM [facility] AND DR. ELLIS OFFICE TO COMPLETE THE MED REC PT COULD NOT REMEMBER THE NAMES OF HIS MEDICATIONS, WHEN I NAMED THEM USING THE EXT MED HISTORY OR THE MED LISTS I HAD SENT TO ME THE PT AGREES HE TAKES THEM BUT COULDNT REMEMBER HOW HE TAKES THEM. I ENTERED THE MEDS ON THE MED REC WITH DIRECTIONS THAT DR. ELLIS OFFICE HAD ON FILE OTC MEDS: NONE
--- NOTE | 2020-03-15 13:32 | Occupational Therapy Eval ---
OT Evaluation-General/PLF Medical Diagnosis Admission Date Mar 14, 2020 at 18:26 Medical Diagnosis: severe sepsis/cellulitis Onset Date: Mar 14, 2020 Therapy Diagnosis Therapy Diagnosis: Decreased ADL status Precautions Precautions/Isolations: Standard Precautions Referral Physician: Sheree Referral Reason: Activity Tolerance, Self Care, Evaluation/Treatment, Strengthening/ROM Medical History Pertinent Medical History: CVA (TIA) Additional Medical History Pt admits to ER due to weakness Current History see nursing. CVA ~6 years prior per pt. Reviewed History: Yes Social History Home: Single Level Current Living Status: Alone Steps Into Home: 0 ADL-Prior Level of Function SCALE: Activities may be completed with or without assistive devices. 3-Rswiwrejmo-nraotlf completes the activity by him/herself with no assistance from a helper. 5-Set-up or Clean-up Assistance-helper sets up or cleans up; patient completes activity. [place] assists only prior to or following the activity. 4-Supervision or Touching Assistance-helper provides verbal cues and/or touching/steadying and/or contact guard assistance as patient completes activity. Assistance may be provided throughout the activity or intermittently. 3-Partial/Moderate Assistance-helper does LESS THAN HALF the effort. [place] lifts, holds or supports trunk or limbs, but provides less than half the effort. 2-Substantial/Maximal Assistance-helper does MORE THAN HALF the effort. [place] lifts or holds trunk or limbs and provides more than half the effort. 1-Fxjwpmayg-oentzx does ALL the effort. Patient does none of the effort to complete the activity. Or, the assistance of 2 or more helpers is required for the patient to complete the activity. If activity was not attempted, code reason: 7-Patient Refused. 9-Not Applicable-not attempted and the patient did not perform the activity before the current illness, exacerbation or injury. 10-Not Attempted due to Environmental Limitations-(lack of equipment, weather restraints, etc.). 88-Not Attempted due to Medical Conditions or Safety Concerns. ADL PLOF Comments Pt states IND with I/ADLs Self Care: Independent Functional Cognition: Independent DME/Equipment: Shower DME/Equipment Comments SPC, walk in shower. Occupation: retired. Drive Self: Yes OT Current Status Subjective Pt alert/ oriented. Nursing agrees to OT tx session. Pt states pain in L leg (6/10), states begins at thigh and shoots downward. Pt c/o this pain inter mittently when moving. Pt denies OOB, though agrees to bottom/ valentin cleansing. Mental Status/Objective Patient Orientation: Person, Place, Situation Attachments: SCD's, Telemetry Current Glasses/Contacts: No Hearing Aids: No Dentures/Partials: No Hand Dominance: Right Upper Extremity ROM WFL BUE Upper Extremity Coordination WFL BUE Upper Extremity Sensation WFL BUE Upper Extremity Strength WFL BUE 3+/5 BUE ADL-Treatment Eating (QC): 6 Oral Hygiene (QC): 6 (per pt has been completing care in bed.) Shower/Bathe Self (QC): 2 (Pt able to cleanse chest, pt requires assist with rolling to complete bottom care.) Toileting Hygiene (QC): 1 (Pt requires min A for rolling task, TD for bottom care in bed.) Other Treatments Pt in bed upon entry.Pt educated on OT/ role. Pt completes hx and MMT/ ROM. Pt denies OOB, pt unable to bring legs toward EOB due to increased pain in L leg during movement. Sharp/ shooting per pt during movement. Pt able to roll with min A side to side (L leg assist), and completes valentin/ bottom care with TD. Pt positioned toward L side rather than R side for pressure management. Pt educated on continued UE/LE functional activity to prep for fx movement. Pt educated on shoulder flexion/ scapular exercises while in bed. Pt completes one set of these and then ceases. Pt denies any questions, call light in reach, all needs met. Education OT Patient Education: Correct positioning, Exercise program, Home exercise program, Transfer techniques Teaching Recipient: Patient Teaching Methods: Demonstration, Discussion Response to Teaching: Verbalize Understanding, Return Demonstration OT Nursing Home Goals Nursing Home Goals Time Frame: Mar 22, 2020 Eating (QC): 6 Oral Hygiene (QC): 6 Toileting Hygiene (QC): 6 Shower/Bathe Self (QC): 4 Upper Body Dressing (QC): 6 Lower Body Dressing (QC): 4 On/Off Footwear (QC): 6 Additional Goals: 1-Demonstrate ADL Tasks, 2-Verbalize Understanding, 3- ImproveStrength/Oksana 1=Demonstrate adherence to instructed precautions during ADL tasks. 2=Patient will verbalize/demonstrate understanding of assistive devices/modifications for ADL. 3=Patient will improve strength/tolerance for activity to enable patient to perform ADL's. OT Education/Plan Problem List/Assessment Assessment: Decreased Activ Tolerance, Decreased UE Strength, Dependent Transfers, Impaired Bed Mobility, Impaired Funct Balance, Impaired I ADL's, Impaired Self-Care Skills Discharge Recommendations Plan/Recommendations: Continue POC Therapy Discharge Recommendati: Scheduled Assistance, Bath Aide, Post Acute OT Equpiment Recommendations-D/C: Rails on Tub/Shower, Bath Chair, Extended Shower Sprayer Treatment Plan/Plan of Care Treatment,Training & Education: Yes Patient would benefit from OT for education, treatment and training to promote independence in ADL's, mobility, safety and/or upper extremity function for ADL's. Plan of Care: ADL Retraining, Caregiver Training, Functional Mobility, UE Funct Exercise/Act Treatment Duration: Mar 22, 2020 Frequency: 5 times per week Estimated Hrs Per Day: .25 hour per day Agreement: Yes Rehab Potential: Fair Time/GCodes Start Time: 13:05 Stop Time: 13:22 Total Time Billed (hr/min): 17 Billed Treatment Time 1ADELINA (17) FABIAN VALLECILLO OTR Mar 15, 2020 13:32
--- NOTE | 2020-03-15 13:47 | NUR ---
CM/SS visited with the patient for social service consult. The patient was in bed with back raised, eating lunch. The patient was willing to discuss discharge but was very slow to answer questions. The patient would answer eventually but not right away. Home: The patient states that he lives alone in [place]. The patient reports that prior to this he was independent at home. He does use a walker. CM/SS unsure of base line and if patient has Dementia or confusion. Patient states he was sitting in his chair unable to get up. He had a cell phone but it needed charged. The patient has a son in [place]; however, they do not really speak. He has a brother living in [place] as well that talks with him every couple of days. Equipment: The patient has a Walker. Denies other equipment. No shower chair, commode, toilet seat riser, or grab bars. Home Health/Caregiver/Homemaker: None. The patient reports "I've never asked any one for help". CM/SS discussed having home health. The patient did not ever respond if he is willing to have home health at time of discharge. SNF: The patient reports that he is not willing to go to a skilled facility at this time. CM/SS will continue to follow.
[2020-03-15] MEDS: ZINC OXIDE 16% OINT (BUTT PASTE) 57 GM TUBE TOP PRN ×2 (15:30→21:45)
--- NOTE | 2020-03-15 15:30 | NUR ---
Patient abdomin, back, groin, valentin-area macerated from previous situation of being found at home in his chair, unable to get up. Lower abdomen has multiple, deep-appearing round scabs, which patient continues to itch and scratch at while getting cleaned up. Scrotum, groin, gluteal cleft and buttocks are reddened with macerated skin and multiple open areas. Patient's right lateral back also has loosened, blistered skin similar in color to valentin-area. Patient is incontinent of both bladder and bowel. He has a arriola catheter in at this time. I asked patient if he can tell when he needs to have a bowel movement or urinate. States he cannot. All areas cleansed with surgical soap and water, dried, catherine's paste applied to all blistered, macerated and reddened areas at this time. Patient turned to right side for turn Q2 protocol. Will con't to monitor.
--- NOTE | 2020-03-15 18:49 | NUR ---
Patient arrived to room at this time. Report received from SUSANNA Denis. I agree with previous RN's assessment and will assume care at this time. Call light and all belongings in reach. Will continue to monitor.
[2020-03-15] MEDS: RT-ALBUTEROL SULF 2.5 MG/3 ML PRE-MIX VIAL INH SCH (19:52)
[2020-03-15] MEDS ORDERED: VANCOMYCIN 1500 MG/NS 500 ML IVPB IV SCH ×2 (20:00)
[2020-03-16] MEDS: PIPERACILLIN/TAZO 4.5 GM/NS 100 ML IV SCH ×6 (01:07→16:37)
[2020-03-16 03:39] VITALS: BP 132/63
[2020-03-16] MEDS: NS IV 1000 ML 1,000 ML IV SCH ×2 (05:26→12:15)
[2020-03-16 06:21] LABS: POTASSIUM 3.7 MMOL/L (3.6-5.0)
[2020-03-16 06:22] LABS: CALCIUM 7.6 MG/DL (8.5-10.1)
[2020-03-16 06:25] LABS: BASOPHILS % (AUTO) 0 % (0-10); EOSINOPHILS # (AUTO) 0.1 10^3/uL (0.0-0.3); EOSINOPHILS % (AUTO) 2 % (0-10); HEMATOCRIT 30 % (40-54); HEMOGLOBIN 9.6 g/dL (13.3-17.7); LYMPHOCYTES # (AUTO) 0.5 10^3/uL (1.0-4.0); LYMPHOCYTES % (AUTO) 9 % (12-44); MEAN CORPUSCULAR HEMOGLOBIN 30 pg (25-34); MEAN CORPUSCULAR HGB CONC 32 g/dL (32-36); MEAN CORPUSCULAR VOLUME 94 fL (80-99); MEAN PLATELET VOLUME 10.7 fL (9.0-12.2); MONOCYTES # (AUTO) 0.3 10^3/uL (0.0-1.0); MONOCYTES % (AUTO) 5 % (0-12); NEUTROPHILS # (AUTO) 4.6 10^3/uL (1.8-7.8); NEUTROPHILS % (AUTO) 83 % (42-75); PLATELET COUNT 210 10^3/uL (130-400); WHITE BLOOD COUNT 5.6 10^3/uL (4.3-11.0)
[2020-03-16 06:26] LABS: CREATININE SERUM 1.35 MG/DL (0.60-1.30); PHOSPHORUS 2.4 MG/DL (2.3-4.7)
[2020-03-16] MEDS: KCL 20 MEQ TAB (K-DUR) PO SCH (06:56)
[2020-03-16] MEDS: RT-ALBUTEROL SULF 2.5 MG/3 ML PRE-MIX VIAL INH SCH ×4 (07:41→18:22)
--- NOTE | 2020-03-16 07:41 | NUR ---
pt was woken up by rt. pt said he was going to do treatment. treatment was started and handed to pt. pt sat the svn down and started to eat breakfast. pt refused to do treatment at this time. rn at bedside.
[2020-03-16 08:00] VITALS: BP 133/76
[2020-03-16] MEDS: ENOXAPARIN 40 MG/0.4 ML (LOVENOX) SYR SC SCH (08:09)
[2020-03-16] MEDS: ZINC OXIDE 16% OINT (BUTT PASTE) 57 GM TUBE TOP PRN (09:50)
[2020-03-16 12:00] VITALS: BP 124/68
--- NOTE | 2020-03-16 12:00 | Progress Note - Surgery ---
JASON TOMLINSON MED STUDENT 03/16/20 1200: Subjective Date Seen by a Provider: Mar 16, 2020 Time Seen by a Provider: 07:30 Subjective/Events-last exam Pt states he's not doing better than yesterday because he's still here. Pt just wants to know how much longer he has to stay here. Pt wasn't interested in answer any further questions. Review of Systems HEENT: No Head Aches, No Visual Changes, No Eye Pain, No Ear Pain Pulmonary: No Cough Gastrointestinal: No: Nausea, Vomiting, Abdominal Pain Focused Exam Lactate Level 03/14/20 16:15: Lactic Acid Level 8.32*H 03/14/20 17:56: Lactic Acid Level 1.67 Objective Exam Vital Signs Date Time Temp Pulse Resp B/P (MAP) Pulse Ox O2 Delivery O2 Flow Rate FiO2 03/16/20 10:44 97 Room Air 03/16/20 08:44 99 Room Air 03/16/20 03:39 36.0 67 19 132/63 (86) 96 Room Air 03/15/20 23:02 36.8 75 22 109/47 (67) 94 Room Air 03/15/20 21:00 98 Room Air 03/15/20 19:53 98 Room Air 03/15/20 19:36 36.5 73 18 113/59 (77) 95 Room Air 03/15/20 18:52 36.6 71 18 123/56 (78) 95 Room Air 03/15/20 17:00 75 21 98 Room Air 03/15/20 16:00 73 11 100/42 (61) 100 Room Air 03/15/20 16:00 36.9 03/15/20 15:00 80 10 98 Room Air 03/15/20 14:19 36.5 81 98 21 03/15/20 14:00 71 16 98/40 (59) 97 Room Air 03/15/20 13:00 79 03/15/20 13:00 73 24 108/59 (75) 98 Room Air 03/15/20 12:00 81 29 111/67 (82) Room Air I & O 03/16/20 07:00 Intake Total 1600 ml Output Total 2075 ml Balance -475 ml Capillary Refill : Less Than 3 Seconds General Appearance: No Apparent Distress, Chronically ill, Obese HEENT: PERRL/EOMI Respiratory: Lungs Clear, No Accessory Muscle Use, No Respiratory Distress Cardiovascular: Regular Rate, Rhythm, No Murmur Peripheral Pulses: 2+ Radial Pulses (R), 2+ Radial Pulses (L) Gastrointestinal: non tender, soft, no organomegaly, no pulsatile mass Extremity: Normal Capillary Refill, No Calf Tenderness, Pedal Edema Neurologic/Psychiatric: Alert, Other (oriented to person and place only) Skin: Normal Color, Erythema (around pubic area and hip and scrotum) Results Lab Laboratory Tests 03/16/20 05:38: White Blood Count 5.6, Red Blood Count 3.21L, Hemoglobin 9.6L, Hematocrit 30L, Mean Corpuscular Volume 94, Mean Corpuscular Hemoglobin 30, Mean Corpuscular Hemoglobin Concent 32, Red Cell Distribution Width 13.5, Platelet Count 210, Mean Platelet Volume 10.7, Immature Granulocyte % (Auto) 0, Neutrophils (%) (Auto) 83H, Lymphocytes (%) (Auto) 9L, Monocytes (%) (Auto) 5, Eosinophils (%) (Auto) 2, Basophils (%) (Auto) 0, Neutrophils # (Auto) 4.6, Lymphocytes # (Auto) 0.5L, Monocytes # (Auto) 0.3, Eosinophils # (Auto) 0.1, Basophils # (Auto) 0.0, Immature Granulocyte # (Auto) 0.0, Sodium Level 138, Potassium Level 3.7, Chloride Level 113H, Carbon Dioxide Level 16L, Anion Gap 9, Blood Urea Nitrogen 39H, Creatinine 1.35H, Estimat Glomerular Filtration Rate 52, BUN/Creatinine Ratio 29, Glucose Level 88, Calcium Level 7.6L, Phosphorus Level 2.4, Magnesium Level 2.0, Total Creatine Kinase 2629H Microbiology 03/14/20 Gram Stain - Final, Resulted 03/14/20 Wound Culture - Preliminary, Resulted Mixed Bacterial Izzy Proteus species See Comments 03/14/20 MRSA Screen - Final, Complete MRSA not isolated 03/14/20 Blood Culture - Preliminary, Resulted No growth Assessment/Plan Assessment/Plan Assessment/Plan cellulitis - no abscess observed. continue cream for sores. monitor scabs and erythema. no surgery at this time. Clinical Quality Measures DVT/VTE Risk/Contraindication: Risk Factor Score Per Nursin RFS Level Per Nursing on Admit: 4+=Very High GARRETT TENORIO DO 03/16/20 1352: Subjective Time Seen by a Provider: 12:25 Subjective/Events-last exam Pt seen and examined, no new changes. He wants to leave. Review of Systems General: No Chills, No Night Sweats HEENT: No Head Aches, No Visual Changes Pulmonary: No Cough Gastrointestinal: No: Nausea, Vomiting, Abdominal Pain Objective Exam General Appearance: No Apparent Distress, Chronically ill, Obese HEENT: PERRL/EOMI Respiratory: Lungs Clear, Normal Breath Sounds, No Accessory Muscle Use, No Respiratory Distress Cardiovascular: Regular Rate, Rhythm, No Murmur Gastrointestinal: non tender, soft, no organomegaly Skin: Erythema (around pubic area and hip and scrotum), Other (pt has scabs all over lower body and legs, with some scrotal erythema (no worse than yesterday)) Assessment/Plan Assessment/Plan Assessment/Plan Cellulitis of Scrotum Scabs and Lesions of legs and lower abdomen Rhabdomyolysis Continue local wound, with creams. No need for surgical intervention at this time, will follow along and monitor. Supervisory-Addendum Brief Verification & Attestation Participated in pt care: history, MDM, physical Personally performed: exam, history, MDM Care discussed with: Medical Student Procedures: n/a Verification and Attestation of Medical Student E/M Service A medical student performed and documented this service. I then reviewed and verified all information documented by the medical student and made modifications to such information, when appropriate. I personally performed a physical exam, medical decision making and then discussed any differences between the notes and made revisions as necessary to create one note. Garrett Tenorio , 03/16/20 , 13:52 JASON TOMLINSON MED STUDENT Mar 16, 2020 12:00 GARRETT TENORIO DO Mar 16, 2020 13:52
--- NOTE | 2020-03-16 13:16 | Physical Therapy Daily Note ---
PT Daily Note-Current Subjective Patient states that his left leg still hurts when he moves it. Agrees to bed exercises only. Transfers SCALE: Activities may be completed with or without assistive devices. 9-Ufmduptvyc-mixlckw completes the activity by him/herself with no assistance from a helper. 5-Set-up or Clean-up Assistance-helper sets up or cleans up; patient completes activity. [place] assists only prior to or following the activity. 4-Supervision or Touching Assistance-helper provides verbal cues and/or touching/steadying and/or contact guard assistance as patient completes activity. Assistance may be provided throughout the activity or intermittently. 3-Partial/Moderate Assistance-helper does LESS THAN HALF the effort. [place] lifts, holds or supports trunk or limbs, but provides less than half the effort. 2-Substantial/Maximal Assistance-helper does MORE THAN HALF the effort. [place] lifts or holds trunk or limbs and provides more than half the effort. 0-Geznrzjqx-agrzgz does ALL the effort. Patient does none of the effort to complete the activity. Or, the assistance of 2 or more helpers is required for the patient to complete the activity. If activity was not attempted, code reason: 7-Patient Refused. 9-Not Applicable-not attempted and the patient did not perform the activity before the current illness, exacerbation or injury. 10-Not Attempted due to Environmental Limitations-(lack of equipment, weather restraints, etc.). 88-Not Attempted due to Medical Conditions or Safety Concerns. Exercises Supine Ex: LE Protocol Supine Reps: 20 Assessment Current Status: Fair Progress Patient tolerated (L) LE exercises fair. PT Sampler And Test Preparer Goals Sampler And Test Preparer Goals PT Sampler And Test Preparer Goals Time Frame: Apr 06, 2020 Roll Left & Right (QC): 4 Sit to Lying (QC): 4 Lying-Sitting on Side/Bed(QC): 4 Sit to Stand (QC): 4 Chair/Qtp-tm-Srrxq Xfer(QC): 4 Toilet Transfer (QC): 4 Does the Patient Walk: No and Walking Goal IS indicated Walk 10 feet (QC): 4 Walk 50ft with 2 Turns (QC): 4 Walk 150 ft (QC): 4 PT Plan Treatment/Plan Treatment Plan: Continue Plan of Care Treatment Plan: Bed Mobility, Education, Functional Activity Oksana, Functional Strength, Gait, Safety, Therapeutic Exercise, Transfers Treatment Duration: Apr 06, 2020 Frequency: 5 times per week (increase to 6/wk when patient complies with OOB activity) Estimated Hrs Per Day: .5 hour per day Time/GCodes Time In: 1300 Time Out: 1310 Total Billed Treatment Time: 10 Total Billed Treatment 1, EX x 10' DAYANARA GARCIA PT Mar 16, 2020 13:16
--- NOTE | 2020-03-16 13:29 | Progress Note - Hospitalist ---
Subjective HPI/CC On Admission Date Seen by Provider: Mar 16, 2020 Time Seen by Provider: 13:24 Pt is a 74yoCM who presented to the ER due to weakness. He is unsure why he is here. He knows his little brother bought him here and that he was weak but is unsure about any other details. He is unsure if he has pain. All other information is obtained from the records. Apparently he was brought in by his brother and friend due to inability to walk. His brother found him sitting in chair covers in urine and feces. Apparently he had been there for 2-3 days unable to move. Patient does not recall this. He was found to have cellulitis of his scrotum with a lactic acid of over 8 and hypotension. He was admitted to the ICU for sepsis. Subjective/Events-last exam Pt reports doing ok. No complaints. Denies pain. Focused Exam Lactate Level 03/14/20 16:15: Lactic Acid Level 8.32*H 03/14/20 17:56: Lactic Acid Level 1.67 Objective Exam Vital Signs Vital Signs Date Time Temp Pulse Resp B/P (MAP) Pulse Ox O2 Delivery O2 Flow Rate FiO2 03/16/20 12:00 36.6 69 20 124/68 (86) 97 Room Air 03/15/20 14:19 21 Capillary Refill : Less Than 3 Seconds General Appearance: No Apparent Distress, Chronically ill Respiratory: Lungs Clear, No Respiratory Distress Cardiovascular: Regular Rate, Rhythm, No Murmur Gastrointestinal: Normal Bowel Sounds, Non Tender, Soft Results/Procedures Lab Laboratory Tests 03/16/20 05:38 Patient resulted labs reviewed. Imaging: Reviewed Imaging Report Assessment/Plan Assessment and Plan Assess & Plan/Chief Complaint Septic Shock- shock aspect resolved Cellulitis Pulm and Surgery consulted, appreciate recs Continue IV abx, DC Vanc given wound culture with proteus Legionella ag negative BP improved NETTA Rhabdomyolysis transaminitis Continue IVF Monitor UOP Creatinine improving PT/OT CK trending down HTN Hold BP meds as BP well controlled HLD Hold statin for transaminitis DVT ppx: Lovenox Critical Care Critically Ill Patient Diagnosis/Problems Diagnosis/Problems (1) Cellulitis Qualifiers: Site of cellulitis: unspecified site Qualified Codes: L03.90 - Cellulitis, unspecified (2) Rhabdomyolysis Status: Acute Qualifiers: Rhabdomyolysis type: non-traumatic Qualified Codes: M62.82 - Rhabdomyolysis (3) Acute renal failure Status: Acute Qualifiers: Acute renal failure type: unspecified Qualified Codes: N17.9 - Acute kidney failure, unspecified (4) Septic shock Status: Acute Clinical Quality Measures DVT/VTE Risk/Contraindication: Risk Factor Score Per Nursin RFS Level Per Nursing on Admit: 4+=Very High LEONIDAS BURDICK MD Mar 16, 2020 13:29
[2020-03-16 15:49] VITALS: BP 120/68
--- NOTE | 2020-03-16 17:21 | NUR ---
DWAYNE ANTHONY ([phone]) CALLED TO CHECK ON THE PATIENT. HE STATED HE WAS THE PATIENT'S SON WHO LIVES IN [place] AND JUST LEARNED THAT HIS FATHER WAS HERE. THE PATIENT TALKED TO HIM ON THE PHONE AND GAVE THIS RN PERMISSION TO TALK TO DWAYNE WELL ALLOW THE SON TO SET UP A PASSWORD. THE SON WAS INFORMED THAT WE ARE NOT ALLOWING VISITORS AT THIS TIME.
[2020-03-16 19:37] VITALS: BP 112/73
[2020-03-16] MEDS: ZINC OXIDE 40% (Butt Paste MAX/Desitin) 57 gm TOP PRN (21:03)
[2020-03-16 23:54] VITALS: BP 141/56
[2020-03-17] MEDS: NS IV 1000 ML 1,000 ML IV SCH ×2 (01:13→13:30)
[2020-03-17] MEDS: PIPERACILLIN/TAZO 4.5 GM/NS 100 ML IV SCH ×6 (01:15→17:26)
[2020-03-17 03:59] VITALS: BP 152/76
[2020-03-17 05:49] LABS: BASOPHILS % (AUTO) 0 % (0-10); EOSINOPHILS # (AUTO) 0.2 10^3/uL (0.0-0.3); EOSINOPHILS % (AUTO) 4 % (0-10); HEMATOCRIT 31 % (40-54); HEMOGLOBIN 9.9 g/dL (13.3-17.7); LYMPHOCYTES # (AUTO) 0.6 10^3/uL (1.0-4.0); LYMPHOCYTES % (AUTO) 13 % (12-44); MEAN CORPUSCULAR HEMOGLOBIN 30 pg (25-34); MEAN CORPUSCULAR HGB CONC 32 g/dL (32-36); MEAN CORPUSCULAR VOLUME 93 fL (80-99); MEAN PLATELET VOLUME 10.6 fL (9.0-12.2); MONOCYTES # (AUTO) 0.3 10^3/uL (0.0-1.0); MONOCYTES % (AUTO) 6 % (0-12); NEUTROPHILS # (AUTO) 3.5 10^3/uL (1.8-7.8); NEUTROPHILS % (AUTO) 77 % (42-75); PLATELET COUNT 194 10^3/uL (130-400); WHITE BLOOD COUNT 4.5 10^3/uL (4.3-11.0)
[2020-03-17 05:59] LABS: POTASSIUM 3.6 MMOL/L (3.6-5.0)
[2020-03-17 06:00] LABS: CALCIUM 7.5 MG/DL (8.5-10.1)
[2020-03-17 06:05] LABS: CREATININE SERUM 1.23 MG/DL (0.60-1.30)
[2020-03-17 06:07] LABS: MAGNESIUM 1.7 MG/DL (1.6-2.4)
[2020-03-17] MEDS: KCL 20 MEQ TAB (K-DUR) PO SCH (06:07)
[2020-03-17 08:00] VITALS: BP 178/75
[2020-03-17] MEDS: ENOXAPARIN 40 MG/0.4 ML (LOVENOX) SYR SC SCH (08:18)
[2020-03-17] MEDS: ZINC OXIDE 40% (Butt Paste MAX/Desitin) 57 gm TOP PRN (08:19)
--- NOTE | 2020-03-17 08:26 | Progress Note - Surgery ---
JASON TOMLINSON MED STUDENT 03/17/20 0826: Subjective Date Seen by a Provider: Mar 17, 2020 Time Seen by a Provider: 07:15 Subjective/Events-last exam Pt states he feels about the same as yesterday. Pt was more responsive today. Pt tried walking yesterday but L leg hurts, which pt reports is not new. Pt had 2 BM yesterday and denies difficulty w/ bathroom. Pt states moving off the bed hurts his lower abdomen/groin area w/ sharp 7/10 pain, which he denies as new pain. Pt denies pain at rest or pain elsewhere. Pt is on liquid diet and possibly wants solid foods. When I was examining the groin, there was less erythema and lesion looked like they were healing. It looked better than yesterday. Review of Systems General: No Chills, No Night Sweats HEENT: No Head Aches, No Visual Changes, No Eye Pain, No Ear Pain Pulmonary: No Cough, No Pleuritic Chest Pain Cardiovascular: No: Chest Pain Gastrointestinal: No: Nausea, Vomiting, Abdominal Pain Musculoskeletal: leg pain (L leg pain (old)) Focused Exam Lactate Level 03/14/20 16:15: Lactic Acid Level 8.32*H 03/14/20 17:56: Lactic Acid Level 1.67 Time of Focused Exam: 16:15 Objective Exam Vital Signs Date Time Temp Pulse Resp B/P (MAP) Pulse Ox O2 Delivery O2 Flow Rate FiO2 03/17/20 03:59 36.6 89 20 152/76 (101) 97 Room Air 03/16/20 23:54 36.5 64 21 141/56 (84) 96 Room Air 03/16/20 21:00 99 Room Air 03/16/20 19:37 36.0 101 18 112/73 (86) 96 Room Air 03/16/20 18:22 99 Room Air 03/16/20 15:49 36.0 86 20 120/68 (85) 98 Room Air 03/16/20 14:42 97 Room Air 03/16/20 12:00 36.6 69 20 124/68 (86) 97 Room Air 03/16/20 10:44 97 Room Air 03/16/20 08:44 99 Room Air I & O 03/17/20 07:00 Intake Total 4210 ml Output Total 2010 ml Balance 2200 ml Capillary Refill : Less Than 3 Seconds General Appearance: No Apparent Distress, Chronically ill HEENT: PERRL/EOMI Respiratory: Lungs Clear, Normal Breath Sounds, No Accessory Muscle Use, No Respiratory Distress Cardiovascular: Regular Rate, Rhythm Peripheral Pulses: 2+ Radial Pulses (R), 2+ Radial Pulses (L) Gastrointestinal: non tender, soft Extremity: Normal Capillary Refill, Non Tender Neurologic/Psychiatric: Alert, Oriented x3 Skin: Warm/Dry, Erythema (slight erythema on groin/buttocks area), Other (lesions on groin region and buttocks area. bruises on extremities) Results Lab Laboratory Tests 03/17/20 05:27: White Blood Count 4.5, Red Blood Count 3.36L, Hemoglobin 9.9L, Hematocrit 31L, Mean Corpuscular Volume 93, Mean Corpuscular Hemoglobin 30, Mean Corpuscular Hemoglobin Concent 32, Red Cell Distribution Width 13.3, Platelet Count 194, Mean Platelet Volume 10.6, Immature Granulocyte % (Auto) 0, Neutrophils (%) (Auto) 77H, Lymphocytes (%) (Auto) 13, Monocytes (%) (Auto) 6, Eosinophils (%) (Auto) 4, Basophils (%) (Auto) 0, Neutrophils # (Auto) 3.5, Lymphocytes # (Auto) 0.6L, Monocytes # (Auto) 0.3, Eosinophils # (Auto) 0.2, Basophils # (Auto) 0.0, Immature Granulocyte # (Auto) 0.0, Sodium Level 139, Potassium Level 3.6, Chloride Level 112H, Carbon Dioxide Level 17L, Anion Gap 10, Blood Urea Nitrogen 24H, Creatinine 1.23, Estimat Glomerular Filtration Rate 58, BUN/Creatinine Ratio 20, Glucose Level 98, Calcium Level 7.5L, Magnesium Level 1.7 Microbiology 03/14/20 Gram Stain - Final, Resulted 03/14/20 Wound Culture - Preliminary, Resulted Mixed Bacterial Izzy Proteus species See Comments 03/14/20 MRSA Screen - Final, Complete MRSA not isolated 03/14/20 Blood Culture - Preliminary, Resulted No growth Assessment/Plan Assessment/Plan Assessment/Plan cellulitis - continue cream on groin and buttock wounds. No surgery needed. monitor. Clinical Quality Measures DVT/VTE Risk/Contraindication: Risk Factor Score Per Nursin RFS Level Per Nursing on Admit: 4+=Very High DELMAN,GARRETT B DO 03/17/20 1234: Subjective Time Seen by a Provider: 11:30 Subjective/Events-last exam Pt seen and examined, no new complaints. Review of Systems General: No Chills, No Night Sweats Pulmonary: No Cough Cardiovascular: No: Chest Pain Gastrointestinal: No: Nausea, Vomiting, Abdominal Pain Objective Exam General Appearance: No Apparent Distress, Chronically ill HEENT: PERRL/EOMI, Moist Mucous Membranes Respiratory: Lungs Clear, Normal Breath Sounds, No Accessory Muscle Use, No Respiratory Distress Cardiovascular: Regular Rate, Rhythm, No Murmur Gastrointestinal: non tender, soft, other (scrotal erythema seems improved) Skin: Warm/Dry, Other (lesions on groin region and buttocks area. bruises on extremities - actually seem improved) Assessment/Plan Assessment/Plan Assessment/Plan Cellulitis/Sores Areas seem to be improving, continue local wound care. Will sign off. Supervisory-Addendum Brief Verification & Attestation Participated in pt care: history, MDM, physical Personally performed: exam, history, MDM Care discussed with: Medical Student Procedures: n/a Verification and Attestation of Medical Student E/M Service A medical student performed and documented this service. I then reviewed and verified all information documented by the medical student and made modifications to such information, when appropriate. I personally performed a physical exam, medical decision making and then discussed any differences between the notes and made revisions as necessary to create one note. Garrett Tenorio , 03/17/20 , 12:34 JASON TOMLINSON MED STUDENT Mar 17, 2020 08:26 GARRETT TENORIO DO Mar 17, 2020 12:34
[2020-03-17] MEDS: RT-ALBUTEROL SULF 2.5 MG/3 ML PRE-MIX VIAL INH SCH ×3 (09:30→18:58)
--- NOTE | 2020-03-17 11:59 | Progress Note - Hospitalist ---
Subjective HPI/CC On Admission Date Seen by Provider: Mar 17, 2020 Time Seen by Provider: 11:49 Pt is a 74yoCM who presented to the ER due to weakness. He is unsure why he is here. He knows his little brother bought him here and that he was weak but is unsure about any other details. He is unsure if he has pain. All other information is obtained from the records. Apparently he was brought in by his brother and friend due to inability to walk. His brother found him sitting in chair covers in urine and feces. Apparently he had been there for 2-3 days unable to move. Patient does not recall this. He was found to have cellulitis of his scrotum with a lactic acid of over 8 and hypotension. He was admitted to the ICU for sepsis. Subjective/Events-last exam Pt reports doing well. No complaints. Would like to go home but still unable to walk or care for himself. Focused Exam Lactate Level 03/14/20 16:15: Lactic Acid Level 8.32*H 03/14/20 17:56: Lactic Acid Level 1.67 Time of Focused Exam: 16:15 Objective Exam Vital Signs Vital Signs Date Time Temp Pulse Resp B/P (MAP) Pulse Ox O2 Delivery O2 Flow Rate FiO2 03/17/20 09:00 99 Room Air 03/17/20 08:00 36.2 77 18 178/75 (109) 03/15/20 14:19 21 Capillary Refill : Less Than 3 Seconds General Appearance: No Apparent Distress, Chronically ill, Obese Respiratory: Lungs Clear, No Respiratory Distress Cardiovascular: Regular Rate, Rhythm, No Murmur Neurologic/Psychiatric: Alert, Oriented x3 Results/Procedures Lab Laboratory Tests 03/17/20 05:27 Patient resulted labs reviewed. Imaging: Reviewed Imaging Report Assessment/Plan Assessment and Plan Assess & Plan/Chief Complaint Septic Shock- shock aspect resolved Cellulitis Pulm and Surgery consulted, appreciate recs Continue Zosyn Legionella ag negative Doing much better NETTA Rhabdomyolysis transaminitis Continue IVF at decreased rate Monitor UOP- very adequate Creatinine continues to improved PT/OT CK trending down HTN BP up now, resume Amlodipine Hold lisinopril and HCTZ for NETTA HLD Hold statin for transaminitis DVT ppx: Lovenox Critical Care Critically Ill Patient Diagnosis/Problems Diagnosis/Problems (1) Cellulitis Qualifiers: Site of cellulitis: unspecified site Qualified Codes: L03.90 - Cellulitis, unspecified (2) Rhabdomyolysis Status: Acute Qualifiers: Rhabdomyolysis type: non-traumatic Qualified Codes: M62.82 - Rhabdomyolysis (3) Acute renal failure Status: Acute Qualifiers: Acute renal failure type: unspecified Qualified Codes: N17.9 - Acute kidney failure, unspecified (4) Septic shock Status: Acute Clinical Quality Measures DVT/VTE Risk/Contraindication: Risk Factor Score Per Nursin RFS Level Per Nursing on Admit: 4+=Very High LEONIDAS BURDICK MD Mar 17, 2020 11:59
[2020-03-17] MEDS: amLODIPine 5 MG (NORVASC) TAB PO SCH (12:10)
[2020-03-17 12:53] VITALS: BP 175/72
[2020-03-17] MEDS: ACETAMINOPHEN 325 MG TABLET PO PRN (14:41)
[2020-03-17 15:33] VITALS: BP 155/76
[2020-03-17] MEDS ORDERED: TROUGH ORDER-PHARMACY XX NR (19:00)
[2020-03-17 19:53] VITALS: BP 138/71
[2020-03-18] VITALS (9 sets, daily range): BP systolic 135–163; BP diastolic 65–93
[2020-03-18] MEDS: PIPERACILLIN/TAZO 4.5 GM/NS 100 ML IV SCH ×6 (00:59→16:48)
[2020-03-18 06:03] LABS: BASOPHILS % (AUTO) 1 % (0-10); EOSINOPHILS # (AUTO) 0.3 10^3/uL (0.0-0.3); EOSINOPHILS % (AUTO) 6 % (0-10); HEMATOCRIT 34 % (40-54); HEMOGLOBIN 11.1 g/dL (13.3-17.7); LYMPHOCYTES # (AUTO) 0.6 10^3/uL (1.0-4.0); LYMPHOCYTES % (AUTO) 14 % (12-44); MEAN CORPUSCULAR HEMOGLOBIN 30 pg (25-34); MEAN CORPUSCULAR HGB CONC 33 g/dL (32-36); MEAN CORPUSCULAR VOLUME 91 fL (80-99); MEAN PLATELET VOLUME 10.9 fL (9.0-12.2); MONOCYTES # (AUTO) 0.2 10^3/uL (0.0-1.0); MONOCYTES % (AUTO) 6 % (0-12); NEUTROPHILS # (AUTO) 3.2 10^3/uL (1.8-7.8); NEUTROPHILS % (AUTO) 74 % (42-75); PLATELET COUNT 270 10^3/uL (130-400); WHITE BLOOD COUNT 4.4 10^3/uL (4.3-11.0)
[2020-03-18 06:16] LABS: POTASSIUM 3.7 MMOL/L (3.6-5.0)
[2020-03-18 06:18] LABS: CALCIUM 7.7 MG/DL (8.5-10.1)
[2020-03-18] MEDS: KCL 20 MEQ TAB (K-DUR) PO SCH (06:18)
[2020-03-18 06:22] LABS: CREATININE SERUM 1.29 MG/DL (0.60-1.30)
[2020-03-18 06:24] LABS: MAGNESIUM 1.6 MG/DL (1.6-2.4)
[2020-03-18] MEDS: NS IV 1000 ML 1,000 ML IV SCH ×2 (07:24→07:55)
[2020-03-18] MEDS: CLOPIDOGREL 75 MG (PLAVIX) TABLET PO SCH (07:56)
[2020-03-18] MEDS: amLODIPine 5 MG (NORVASC) TAB PO SCH (07:57)
[2020-03-18] MEDS: ENOXAPARIN 40 MG/0.4 ML (LOVENOX) SYR SC SCH (07:58)
[2020-03-18] MEDS: RT-ALBUTEROL SULF 2.5 MG/3 ML PRE-MIX VIAL INH SCH ×3 (08:04→14:44)
--- NOTE | 2020-03-18 09:09 | Occupational Ther Daily Note ---
OT Current Status-Daily Note Subjective Pt in bed upon arrival. Pt sleeping, requires vc and tactile cues for waking. Pt agrees to tx, agrees to get to recliner. States pain continues in L leg. Pt does not rate. Pt requires max cues for safety/ positioning during treatment. Mental Status/Objective Attachments: [place] Catheter, IV, SCD's ADL-Treatment Therapy Code Descriptions/Definitions Functional [place] Measure: 0=Not Assessed/NA 4=Minimal Assistance 1=Total Assistance 5=Supervision or Setup 2=Maximal Assistance 6=Modified [place] 3=Moderate Assistance 7=Complete IndependenceSCALE: Activities may be completed with or without assistive devices. 6-Ktevahkrof-ilxcltu completes the activity by him/herself with no assistance from a helper. 5-Set-up or Clean-up Assistance-helper sets up or cleans up; patient completes activity. [place] assists only prior to or following the activity. 4-Supervision or Touching Assistance-helper provides verbal cues and/or touching/steadying and/or contact guard assistance as patient completes activity. Assistance may be provided throughout the activity or intermittently. 3-Partial/Moderate Assistance-helper does LESS THAN HALF the effort. [place] lifts, holds or supports trunk or limbs, but provides less than half the effort. 2-Substantial/Maximal Assistance-helper does MORE THAN HALF the effort. [place] lifts or holds trunk or limbs and provides more than half the effort. 5-Nzuwpokga-nbjbum does ALL the effort. Patient does none of the effort to complete the activity. Or, the assistance of 2 or more helpers is required for the patient to complete the activity. If activity was not attempted, code reason: 7-Patient Refused. 9-Not Applicable-not attempted and the patient did not perform the activity before the current illness, exacerbation or injury. 10-Not Attempted due to Environmental Limitations-(lack of equipment, weather restraints, etc.). 88-Not Attempted due to Medical Conditions or Safety Concerns. Eating (QC): 6 (opens coffee packets and drinks IND.) Lower Body Dressing (QC): 2 (Max A- OT threads BLE with cues for extending LE's forward to thread. Pt able to raise RLE>LLE, c/o pain. Pt requires assist to pull up over hips in stance.) Toileting Hygiene (QC): 1 (TD. ) Toilet Transfer (QC): 3 (min A- cues for safety) Other Treatment Pt in bed, reclined to sitting EOB with assist with LLE movement. Pt sit to stand with PT assist and requires cues for problem solving (hand on walker placement, cues for toileting, cues for positioning). Pt has slight BM while in stance, lands on floor. BSC placed behind pt. Pt sits, able to have very slight BM. Pt is cleansed in stance with CGA and TD bottom cleaning. Dry/ flaking skin on bottom. Cream applied. Pt completes ambulation task with PT with short/ staggering gait, cues for continuation due to decreased safety. Pt sits in recliner, all needs met, call light in reach. Education OT Patient Education: Correct positioning, Exercise program, Modified ADL t echniques, Purpose of tx/functional activities, Safety issues, Transfer techniques Teaching Recipient: Patient Teaching Methods: Demonstration, Discussion Response to Teaching: Verbalize Understanding, Return Demonstration OT Welding Machine Setter Goals Welding Machine Setter Goals Time Frame: Mar 22, 2020 Eating (QC): 6 Oral Hygiene (QC): 6 Toileting Hygiene (QC): 6 Shower/Bathe Self (QC): 4 Upper Body Dressing (QC): 6 Lower Body Dressing (QC): 4 On/Off Footwear (QC): 6 Additional Goals: 1-Demonstrate ADL Tasks, 2-Verbalize Understanding, 3- ImproveStrength/Oksana 1=Demonstrate adherence to instructed precautions during ADL tasks. 2=Patient will verbalize/demonstrate understanding of assistive devices/modifications for ADL. 3=Patient will improve strength/tolerance for activity to enable patient to perform ADL's. OT Education/Plan Problem List/Assessment Assessment: Decreased Activ Tolerance, Decreased Safety Aware, Decreased UE Strength, Dependent Transfers, Impaired Bed Mobility, Impaired Cognition, Impaired Funct Balance, Impaired I ADL's, Impaired Self-Care Skills Discharge Recommendations Plan/Recommendations: Continue POC Therapy Discharge Recommendati: 24 Hour Supervision Treatment Plan/Plan of Care Treatment,Training & Education: Yes Patient would benefit from OT for education, treatment and training to promote independence in ADL's, mobility, safety and/or upper extremity function for ADL's. Plan of Care: ADL Retraining, Caregiver Training, Functional Mobility, UE Funct Exercise/Act Treatment Duration: Mar 22, 2020 Frequency: 5 times per week Estimated Hrs Per Day: .25 hour per day Agreement: Yes Rehab Potential: Fair Time/GCodes Start Time: 08:42 Stop Time: 09:00 Total Time Billed (hr/min): 18 Billed Treatment Time 1, ADL (18) FABIAN VALLECILLO OTR Mar 18, 2020 09:09
--- NOTE | 2020-03-18 10:10 | NUR ---
CM/SS follow up. CM/SS visited with patient regarding discharge plans. Physical therapy verbalized to this sw that he is not safe to return home at this current time based on today's session. CM/SS addressed this with the patient. He verbalized understanding and stated that he has ways of getting around at home. CM/SS discussed the patient being stuck in the chair and the risk with it happening again when returning home at current level. The patient verbalized understanding. CM/SS discussed a fci home stay. The patient reports that he has done that in the past at [facility]. He verbalized that he is willing to do a skilled stay at [facility] again. CM/SS contacted [facility] to make a referral. Faxed clinical and awaiting acceptance/denial.
--- NOTE | 2020-03-18 10:22 | Physical Therapy Daily Note ---
PT Daily Note-Current Subjective Patient requires much encouragement to participate with therapy. Patient is incontinent BM and is aware. Pain Numeric Pain Scale: 5-Moderate Pain Location: Left Location Body Site: Thigh Pain Description: Ache Mental Status Patient Orientation: Person, Time Attachments: Blanchard Catheter, IV Transfers SCALE: Activities may be completed with or without assistive devices. 8-Frcsyorfax-frgsgzw completes the activity by him/herself with no assistance from a helper. 5-Set-up or Clean-up Assistance-helper sets up or cleans up; patient completes activity. [place] assists only prior to or following the activity. 4-Supervision or Touching Assistance-helper provides verbal cues and/or touching/steadying and/or contact guard assistance as patient completes activity. Assistance may be provided throughout the activity or intermittently. 3-Partial/Moderate Assistance-helper does LESS THAN HALF the effort. [place] lifts, holds or supports trunk or limbs, but provides less than half the effort. 2-Substantial/Maximal Assistance-helper does MORE THAN HALF the effort. [place] lifts or holds trunk or limbs and provides more than half the effort. 3-Wmazhtpqg-dsmuqy does ALL the effort. Patient does none of the effort to complete the activity. Or, the assistance of 2 or more helpers is required for the patient to complete the activity. If activity was not attempted, code reason: 7-Patient Refused. 9-Not Applicable-not attempted and the patient did not perform the activity before the current illness, exacerbation or injury. 10-Not Attempted due to Environmental Limitations-(lack of equipment, weather restraints, etc.). 88-Not Attempted due to Medical Conditions or Safety Concerns. Lying to Sitting/Side of Bed(Q: 2 Sit to Stand (QC): 2 Chair/Yuy-uf-Yucmw Xfer(QC): 2 Toilet Transfer (QC): 2 Patient is impulsive to sit and has diminished safety awareness Gait Training Does the Patient Walk?: Yes Distance: 100' Walk 10 feet (QC): 2 Walk 50 ft with 2 Turns(QC): 2 Walk 150 ft (QC): 88 Walking 10ft/uneven surface-QC: 88 Gait Assistive Device: FWW shuffle gait sequence with no foot clearance Exercises Seated Therapy Exercises: Ankle pumps, Long arc quads, Hip flexion Seated Reps: 15 Assessment Patient requires skill VC's for body placement in FWW and for gait sequence. Patient is incontinent BM and is aware of this. PT/OT cotreatment due to complexity of patient condition and requiring the skill and knowledge of 2 therapist. Patient tolerated minimal activity. From a PT standpoint, patient would benefit from extended care facility due to inability to care for self and weakness/debility. PT Shelter Goals Shelter Goals PT Road Supervisor Goals Time Frame: Apr 06, 2020 Roll Left & Right (QC): 4 Sit to Lying (QC): 4 Lying-Sitting on Side/Bed(QC): 4 Sit to Stand (QC): 4 Chair/Orr-zg-Byqkn Xfer(QC): 4 Toilet Transfer (QC): 4 Does the Patient Walk: No and Walking Goal IS indicated Walk 10 feet (QC): 4 Walk 50ft with 2 Turns (QC): 4 Walk 150 ft (QC): 4 PT Plan Treatment/Plan Treatment Plan: Continue Plan of Care Treatment Plan: Bed Mobility, Education, Functional Activity Oksana, Functional Strength, Gait, Safety, Therapeutic Exercise, Transfers Treatment Duration: Apr 06, 2020 Frequency: 5 times per week (increase to 6/wk when patient complies with OOB activity) Estimated Hrs Per Day: .5 hour per day Time/GCodes Time In: 845 Time Out: 900 Total Billed Treatment Time: 15 Total Billed Treatment 1 visit GT 15 min DERIK MCGOWAN PT Mar 18, 2020 10:22
--- NOTE | 2020-03-18 10:30 | NUR ---
wounds assessed from previous visit in ICU. Blister on back appears to be healing, staff is using barrier cream as needed. skin to abdomen, scrotum, groin, gluteal cleft, legs scabbing. patient occassionally scratching at all of these areas as I wash and apply barrier cream to them. I reminded patient not to scratch at these areas, wash cloth offered to cleanse hands. will con't to monitor.
--- NOTE | 2020-03-18 14:55 | NUR ---
"RD ASSESSMENT PMHx: stroke; PT INTERACTION: Pt was awake and pleasant during nutrition assessment. Note pt has AMS and is hard of hearing, per chart review. Pt states current appetite is good. Note avg PO intake 88% x3d, per chart review. Pt states following a regular diet at home, and has no issues with chewing/swallowing food. Pt states no recent issues with nausea, vomiting, constipation or diarrhea. Note last BM was 03/17, and pt not currently on bowel regimen per chart review. Pt states unsure of recent wt changes. Note unable to determine recent wt hx, per chart review. Note presence of wound (scrotum), per chart review. ABNORMAL NUTRITION-RELATED LAB VALUES LOW: Ca 7.7 HIGH: Est. kcal needs: 3344-3479 kcal | 15-18 kcal/kg Est. Pro needs: 99-119 g Pro | 1.0-1.2 g Pro/kg PES STATEMENT: Inadequate protein intake (NI-2.1) related to increased protein needs as evidenced by presence of wound (scrotum). INTERVENTION: Continue with current diet order of DYS2 Mechanically Altered diet. Would recommend advancing to Regular diet, as pt does not have issues with chewing/swallowing food at this time. Add Ensure HP (vary) to meals TID. Provides 160 kcal and 16 g Pro per serving, for perceived benefit to wound healing. Will continue to follow and reassess as pt needs, intake, and status change. Miah Chavez, MS RD LD"
--- NOTE | 2020-03-18 16:22 | Progress Note - Hospitalist ---
Subjective HPI/CC On Admission Date Seen by Provider: Mar 18, 2020 Time Seen by Provider: 11:40 Pt is a 74yoCM who presented to the ER due to weakness. He is unsure why he is here. He knows his little brother bought him here and that he was weak but is unsure about any other details. He is unsure if he has pain. All other information is obtained from the records. Apparently he was brought in by his brother and friend due to inability to walk. His brother found him sitting in chair covers in urine and feces. Apparently he had been there for 2-3 days unable to move. Patient does not recall this. He was found to have cellulitis of his scrotum with a lactic acid of over 8 and hypotension. He was admitted to the ICU for sepsis. Subjective/Events-last exam he reports no new complaints or concerns. He denies any fevers. He denies any pain. He denies any trouble breathing. Focused Exam Time of Focused Exam: 16:15 Objective Exam Vital Signs Vital Signs Date Time Temp Pulse Resp B/P (MAP) Pulse Ox O2 Delivery O2 Flow Rate FiO2 03/18/20 15:48 36.8 80 18 136/74 (94) 95 Room Air 03/18/20 15:12 21 Capillary Refill : Less Than 3 Seconds General Appearance: No Apparent Distress, Obese Respiratory: Lungs Clear, Normal Breath Sounds, No Respiratory Distress Cardiovascular: Regular Rate, Rhythm, No Murmur Gastrointestinal: Normal Bowel Sounds, Non Tender, Soft Genital/Rectal: Other (rash present in bilateral groin area) Extremity: Normal Inspection, Non Tender Neurologic/Psychiatric: Alert, Oriented x3, Motor Weakness Results/Procedures Lab Laboratory Tests 03/18/20 05:32 Patient resulted labs reviewed. Imaging: Reviewed Imaging Report Assessment/Plan Assessment and Plan Assess & Plan/Chief Complaint Cellulitis Pulm and Surgery consulted, appreciate recs Continue Zosyn NETTA Rhabdomyolysis Elevated LFTs Continue fluids Creatinine improving CK trending down HTN Continue Amlodipine Hold lisinopril and HCTZ for NETTA HLD Hold statin for LFTs Debility PT/OT DVT ppx: Lovenox Septic shock, resolved Critical Care Critically Ill Patient Diagnosis/Problems Diagnosis/Problems (1) Cellulitis Status: Acute Qualifiers: Site of cellulitis: unspecified site Qualified Codes: L03.90 - Cellulitis, unspecified (2) Rhabdomyolysis Status: Acute Qualifiers: Rhabdomyolysis type: non-traumatic Qualified Codes: M62.82 - Rhabdomyolysis Clinical Quality Measures DVT/VTE Risk/Contraindication: Risk Factor Score Per Nursin RFS Level Per Nursing on Admit: 4+=Very High ANDREI BRAMBILA MD Mar 18, 2020 16:22
[2020-03-19] MEDS: PIPERACILLIN/TAZO 4.5 GM/NS 100 ML IV SCH ×4 (01:29→10:19)
[2020-03-19] MEDS: NS IV 1000 ML 1,000 ML IV SCH ×2 (01:29→17:36)
[2020-03-19 04:40] VITALS: BP 164/87
[2020-03-19 05:48] LABS: BASOPHILS % (AUTO) 0 % (0-10); EOSINOPHILS # (AUTO) 0.2 10^3/uL (0.0-0.3); EOSINOPHILS % (AUTO) 5 % (0-10); HEMATOCRIT 34 % (40-54); HEMOGLOBIN 11.2 g/dL (13.3-17.7); LYMPHOCYTES # (AUTO) 0.6 10^3/uL (1.0-4.0); LYMPHOCYTES % (AUTO) 13 % (12-44); MEAN CORPUSCULAR HEMOGLOBIN 30 pg (25-34); MEAN CORPUSCULAR HGB CONC 33 g/dL (32-36); MEAN CORPUSCULAR VOLUME 90 fL (80-99); MEAN PLATELET VOLUME 10.3 fL (9.0-12.2); MONOCYTES # (AUTO) 0.3 10^3/uL (0.0-1.0); MONOCYTES % (AUTO) 6 % (0-12); NEUTROPHILS # (AUTO) 3.5 10^3/uL (1.8-7.8); NEUTROPHILS % (AUTO) 76 % (42-75); PLATELET COUNT 198 10^3/uL (130-400); WHITE BLOOD COUNT 4.6 10^3/uL (4.3-11.0)
[2020-03-19 06:21] LABS: ALBUMIN 2.9 GM/DL (3.2-4.5); BILIRUBIN,DIRECT 0.3 MG/DL (0.0-0.3); BILIRUBIN,INDIRECT 0.3 MG/DL; BILIRUBIN,TOTAL 0.6 MG/DL (0.1-1.0); CALCIUM 7.7 MG/DL (8.5-10.1); CREATININE SERUM 1.2 MG/DL (0.60-1.30); MAGNESIUM 1.3 MG/DL (1.6-2.4); POTASSIUM 3.5 MMOL/L (3.6-5.0); TOTAL PROTEIN 5.2 GM/DL (6.4-8.2)
[2020-03-19] MEDS: KCL 20 MEQ TAB (K-DUR) PO SCH (06:25)
[2020-03-19] MEDS ORDERED: KCL 20 MEQ TAB (K-DUR) PO ONE ×2 (06:30→09:00)
[2020-03-19] MEDS: amLODIPine 5 MG (NORVASC) TAB PO SCH (08:01)
[2020-03-19] MEDS: CLOPIDOGREL 75 MG (PLAVIX) TABLET PO SCH (08:01)
[2020-03-19] MEDS: ENOXAPARIN 40 MG/0.4 ML (LOVENOX) SYR SC SCH (08:02)
[2020-03-19] MEDS: MAGNESIUM 1 GM/100 ML IVPB 100 ML IV SCH ×4 (08:27→11:45)
[2020-03-19 08:31] VITALS: BP 181/86
--- NOTE | 2020-03-19 11:48 | Physical Therapy Daily Note ---
PT Daily Note-Current Subjective Patient agrees to PT. Continues to c/o left thigh pain. Pain Numeric Pain Scale: 5-Moderate Pain Location: Left Location Body Site: Thigh Pain Description: Ache Mental Status Patient Orientation: Normal For Age Attachments: Blanchard Catheter, IV Transfers SCALE: Activities may be completed with or without assistive devices. 9-Ssohgmsjrk-oocgnoz completes the activity by him/herself with no assistance from a helper. 5-Set-up or Clean-up Assistance-helper sets up or cleans up; patient completes activity. [place] assists only prior to or following the activity. 4-Supervision or Touching Assistance-helper provides verbal cues and/or touching/steadying and/or contact guard assistance as patient completes activity. Assistance may be provided throughout the activity or intermittently. 3-Partial/Moderate Assistance-helper does LESS THAN HALF the effort. [place] lifts, holds or supports trunk or limbs, but provides less than half the effort. 2-Substantial/Maximal Assistance-helper does MORE THAN HALF the effort. [place] lifts or holds trunk or limbs and provides more than half the effort. 9-Vocsnhrow-zytqaw does ALL the effort. Patient does none of the effort to complete the activity. Or, the assistance of 2 or more helpers is required for the patient to complete the activity. If activity was not attempted, code reason: 7-Patient Refused. 9-Not Applicable-not attempted and the patient did not perform the activity before the current illness, exacerbation or injury. 10-Not Attempted due to Environmental Limitations-(lack of equipment, weather restraints, etc.). 88-Not Attempted due to Medical Conditions or Safety Concerns. Roll Left & Right (QC): 4 Lying to Sitting/Side of Bed(Q: 2 Sit to Stand (QC): 3 Chair/Vrx-vc-Ntcpi Xfer(QC): 2 Gait Training Does the Patient Walk?: Yes Distance: 100' Walk 10 feet (QC): 2 Walk 50 ft with 2 Turns(QC): 2 Walk 150 ft (QC): 88 Gait Assistive Device: FWW shuffle gait sequence with VC's for left foot clearance to "july" left LE with patient able to perform x 2 reps then returned to shuffle gait Exercises Seated Therapy Exercises: Ankle pumps, Long arc quads, Hip flexion Seated Reps: 15 (2 sets) Assessment Patient is up in recliner with needs met. Patient is progressing slowly with treatment. PT Bullet Swaging Machine Operator Goals Chcf Goals PT Bullet Swaging Machine Operator Goals Time Frame: Apr 06, 2020 Roll Left & Right (QC): 4 Sit to Lying (QC): 4 Lying-Sitting on Side/Bed(QC): 4 Sit to Stand (QC): 4 Chair/Nwv-xv-Yofvz Xfer(QC): 4 Toilet Transfer (QC): 4 Does the Patient Walk: No and Walking Goal IS indicated Walk 10 feet (QC): 4 Walk 50ft with 2 Turns (QC): 4 Walk 150 ft (QC): 4 PT Plan Treatment/Plan Treatment Plan: Continue Plan of Care Treatment Plan: Bed Mobility, Education, Functional Activity Oksana, Functional Strength, Gait, Safety, Therapeutic Exercise, Transfers Treatment Duration: Apr 06, 2020 Frequency: 5 times per week (increase to 6/wk when patient complies with OOB activity) Estimated Hrs Per Day: .5 hour per day Time/GCodes Time In: 955 Time Out: 1018 Total Billed Treatment Time: 23 Total Billed Treatment 1 visit EX 10 min GT 13 min DERIK MCGOWAN PT Mar 19, 2020 11:48
--- NOTE | 2020-03-19 11:58 | Occupational Ther Daily Note ---
OT Current Status-Daily Note Subjective Pt laying in bed sleeping, easily awoken. Pt indicates he did not get much sleep last night, agreeable to OT Tx. ADL-Treatment Therapy Code Descriptions/Definitions Functional [place] Measure: 0=Not Assessed/NA 4=Minimal Assistance 1=Total Assistance 5=Supervision or Setup 2=Maximal Assistance 6=Modified [place] 3=Moderate Assistance 7=Complete IndependenceSCALE: Activities may be completed with or without assistive devices. 1-Wojprjuuxl-bokyzrm completes the activity by him/herself with no assistance from a helper. 5-Set-up or Clean-up Assistance-helper sets up or cleans up; patient completes activity. [place] assists only prior to or following the activity. 4-Supervision or Touching Assistance-helper provides verbal cues and/or touching/steadying and/or contact guard assistance as patient completes activity. Assistance may be provided throughout the activity or intermittently. 3-Partial/Moderate Assistance-helper does LESS THAN HALF the effort. [place] lifts, holds or supports trunk or limbs, but provides less than half the effort. 2-Substantial/Maximal Assistance-helper does MORE THAN HALF the effort. [place] lifts or holds trunk or limbs and provides more than half the effort. 9-Zcstxwafq-zmnvtc does ALL the effort. Patient does none of the effort to complete the activity. Or, the assistance of 2 or more helpers is required for the patient to complete the activity. If activity was not attempted, code reason: 7-Patient Refused. 9-Not Applicable-not attempted and the patient did not perform the activity before the current illness, exacerbation or injury. 10-Not Attempted due to Environmental Limitations-(lack of equipment, weather restraints, etc.). 88-Not Attempted due to Medical Conditions or Safety Concerns. Oral Hygiene (QC): 4 (OT placed supplies in front of pt, instructing him to brush his teeth, pt did not initiate movements. OT placed toothpaste on toothbrush and handed to pt, he was then able to brush with min cues.) Other Treatment Pt laying in bed, agreeable to brushing teeth. OT setup supplies for pt instructing him to brush, but pt did not initiate task. OT then placed toothpaste on toothbrush and handed to pt, he was able to bring to mouth and brush with min cues. OT encouraged pt to participate in other ADLS including showering, but pt declines stating he has already gotten cleaned up today. Pt brushed his hair with set up assist of comb. In order to increase BUE strength a nd functional endurance, pt completed x15 reps BUEs shoulder flexion and elbow flexion/extension. Pt indicates he is tired and does not want to complete any further tasks. OT assists pt with positioning to comfort. Post OT tx, pt laying in bed, call light in reach and all needs met. Education OT Patient Education: Correct positioning, Energy conservation, Modified ADL techniques, Progress toward Goal/Update tx plan, Purpose of tx/functional activities Teaching Recipient: Patient Teaching Methods: Discussion Response to Teaching: Verbalize Understanding OT Correction Goals Correction Goals Time Frame: Mar 22, 2020 Eating (QC): 6 Oral Hygiene (QC): 6 Toileting Hygiene (QC): 6 Shower/Bathe Self (QC): 4 Upper Body Dressing (QC): 6 Lower Body Dressing (QC): 4 On/Off Footwear (QC): 6 Additional Goals: 1-Demonstrate ADL Tasks, 2-Verbalize Understanding, 3- ImproveStrength/Oksana 1=Demonstrate adherence to instructed precautions during ADL tasks. 2=Patient will verbalize/demonstrate understanding of assistive devices/modifications for ADL. 3=Patient will improve strength/tolerance for activity to enable patient to perform ADL's. OT Education/Plan Problem List/Assessment Assessment: Decreased Activ Tolerance, Decreased UE Strength, Impaired I ADL's, Impaired Self-Care Skills Discharge Recommendations Plan/Recommendations: Continue POC Treatment Plan/Plan of Care Patient would benefit from OT for education, treatment and training to promote independence in ADL's, mobility, safety and/or upper extremity function for ADL's. Plan of Care: ADL Retraining, Caregiver Training, Functional Mobility, UE Funct Exercise/Act Treatment Duration: Mar 22, 2020 Frequency: 5 times per week Estimated Hrs Per Day: .25 hour per day Agreement: Yes Rehab Potential: Fair Time/GCodes Start Time: 11:26 Stop Time: 11:37 Total Time Billed (hr/min): 11 Billed Treatment Time 1, ADL JENSEN SARABIA OT Mar 19, 2020 11:58
[2020-03-19 12:00] VITALS: BP 140/80
--- NOTE | 2020-03-19 14:46 | NUR ---
CM/SS follow up. Plan: Patient will discharge to [facility] pending insurance approval. CM/SS faxed updated clinical to Shavon at the facility. CM/SS contacted patient's son Vicente ([phone]) to give an update and answer questions. Vicente had questions regarding Durable Power of Sole Layer (DPOA) and if this sw could discuss it with the patient. CM/SS spoke at length about DPOA paper work and when it comes into affect. CM/SS explained that it is not a Financial power of workers compensation attorney, and instructed him to speak with the patient on his wishes for that. Vicente verbalized understanding. CM/SS visited with the patient. The patient was alert and oriented at time of visit. CM/SS discussed the conversation had with Vicente and his concerns/questions. The patient verbalized understanding. CM/SS discussed and explained the Durable Power of Sole Layer and when it would come in to affect. CM/SS asked if patient wanted to complete the form. The patient stated, yes. CM/SS had RAPHAEL Armendariz as a witness. CM/SS provided the patient with multiple copies and the original was put in the chart. CM/SS will continue to follow.
--- NOTE | 2020-03-19 15:30 | Progress Note - Hospitalist ---
Subjective HPI/CC On Admission Date Seen by Provider: Mar 19, 2020 Time Seen by Provider: 11:05 Pt is a 74yoCM who presented to the ER due to weakness. He is unsure why he is here. He knows his little brother bought him here and that he was weak but is unsure about any other details. He is unsure if he has pain. All other informati on is obtained from the records. Apparently he was brought in by his brother and friend due to inability to walk. His brother found him sitting in chair covers in urine and feces. Apparently he had been there for 2-3 days unable to move. Patient does not recall this. He was found to have cellulitis of his scrotum with a lactic acid of over 8 and hypotension. He was admitted to the ICU for sepsis. Subjective/Events-last exam He is laying in bed. He has no complaints. He denies pain. He denies fevers. Focused Exam Time of Focused Exam: 16:15 Objective Exam Vital Signs Vital Signs Date Time Temp Pulse Resp B/P (MAP) Pulse Ox O2 Delivery O2 Flow Rate FiO2 03/19/20 12:00 36.5 77 24 140/80 (100) 97 Room Air 03/18/20 15:12 21 Capillary Refill : Less Than 3 Seconds General Appearance: No Apparent Distress, Obese Respiratory: Lungs Clear, Normal Breath Sounds, No Respiratory Distress Cardiovascular: Regular Rate, Rhythm, No Edema, No Murmur Gastrointestinal: Normal Bowel Sounds, Non Tender, Soft Extremity: Normal Inspection, Non Tender, Pedal Edema Neurologic/Psychiatric: Alert, Oriented x3, No Motor/Sensory Deficits, Normal Mood/Affect Skin: Normal Color, Warm/Dry Results/Procedures Lab Laboratory Tests 03/19/20 05:40 Patient resulted labs reviewed. Imaging: Reviewed Imaging Report Assessment/Plan Assessment and Plan Assess & Plan/Chief Complaint Cellulitis Pulm and Surgery consulted, appreciate recs Continue Zosyn NETTA Rhabdomyolysis Elevated LFTs Continue fluids Creatinine improving CK trending down HTN Continue Amlodipine Hold lisinopril and HCTZ for NETTA HLD Hold statin for LFTs Debility PT/OT Planning for discharge to SNF DVT ppx: Lovenox Septic shock, resolved Critical Care Critically Ill Patient Diagnosis/Problems Diagnosis/Problems (1) Cellulitis Status: Acute Qualifiers: Site of cellulitis: unspecified site Qualified Codes: L03.90 - Cellulitis, unspecified (2) Rhabdomyolysis Status: Acute Qualifiers: Rhabdomyolysis type: non-traumatic Qualified Codes: M62.82 - Rhabdomyolysis Clinical Quality Measures DVT/VTE Risk/Contraindication: Risk Factor Score Per Nursin RFS Level Per Nursing on Admit: 4+=Very High ANDREI BRAMBILA MD Mar 19, 2020 15:30
[2020-03-19 15:39] VITALS: BP_SYST 150; BP_SYST 156; BP_DIAS 86
[2020-03-19] MEDS: AUGMENTIN 875 MG TAB (AMOXICILLIN/CLAVULANATE) PO SCH (17:35)
[2020-03-19 19:48] VITALS: BP 158/93
[2020-03-19] MEDS: ZINC OXIDE 40% (Butt Paste MAX/Desitin) 57 gm TOP PRN (21:14)
[2020-03-19 23:39] VITALS: BP 139/81
[2020-03-20 03:59] VITALS: BP 128/86
[2020-03-20 07:01] LABS: BASOPHILS % (AUTO) 1 % (0-10); EOSINOPHILS # (AUTO) 0.2 10^3/uL (0.0-0.3); EOSINOPHILS % (AUTO) 5 % (0-10); HEMATOCRIT 35 % (40-54); HEMOGLOBIN 11.2 g/dL (13.3-17.7); LYMPHOCYTES # (AUTO) 0.6 10^3/uL (1.0-4.0); LYMPHOCYTES % (AUTO) 13 % (12-44); MEAN CORPUSCULAR HEMOGLOBIN 30 pg (25-34); MEAN CORPUSCULAR HGB CONC 32 g/dL (32-36); MEAN CORPUSCULAR VOLUME 93 fL (80-99); MEAN PLATELET VOLUME 10.5 fL (9.0-12.2); MONOCYTES # (AUTO) 0.4 10^3/uL (0.0-1.0); MONOCYTES % (AUTO) 8 % (0-12); NEUTROPHILS # (AUTO) 3.5 10^3/uL (1.8-7.8); NEUTROPHILS % (AUTO) 74 % (42-75); PLATELET COUNT 188 10^3/uL (130-400); WHITE BLOOD COUNT 4.8 10^3/uL (4.3-11.0)
[2020-03-20 07:09] LABS: CHLORIDE 106 MMOL/L (98-107); POTASSIUM 4.2 MMOL/L (3.6-5.0); SODIUM 136 MMOL/L (135-145)
[2020-03-20 07:11] LABS: CALCIUM 7.7 MG/DL (8.5-10.1); GLUCOSE 95 MG/DL (70-105)
[2020-03-20 07:12] LABS: CARBON DIOXIDE 19 MMOL/L (21-32)
[2020-03-20 07:15] LABS: CREATININE SERUM 1.04 MG/DL (0.60-1.30); GFR ESTIMATED > 60
[2020-03-20 07:16] LABS: BUN/CREATININE RATIO 12
[2020-03-20 07:17] LABS: MAGNESIUM 1.9 MG/DL (1.6-2.4)
[2020-03-20 08:00] VITALS: BP 194/98
[2020-03-20] MEDS: POTASSIUM CL 10MEQ/50ML IVPB 50 ML IV SCH (08:02)
[2020-03-20] MEDS: MAGNESIUM 1 GM/100 ML IVPB 100 ML IV SCH (08:02)
[2020-03-20] MEDS: KCL 20 MEQ TAB (K-DUR) PO SCH ×2 (08:02)
[2020-03-20] MEDS: NS IV 1000 ML 1,000 ML IV SCH (08:32)
[2020-03-20] MEDS: amLODIPine 5 MG (NORVASC) TAB PO SCH (08:32)
[2020-03-20] MEDS: AUGMENTIN 875 MG TAB (AMOXICILLIN/CLAVULANATE) PO SCH ×2 (08:32→17:20)
[2020-03-20] MEDS: CLOPIDOGREL 75 MG (PLAVIX) TABLET PO SCH (08:32)
[2020-03-20] MEDS: ENOXAPARIN 40 MG/0.4 ML (LOVENOX) SYR SC SCH (08:32)
--- NOTE | 2020-03-20 10:20 | Physical Therapy Daily Note ---
PT Daily Note-Current Subjective Pt presents supine in bed and tired. Pt agrees to PT. Pt reports no pain. Pt reports needing to complete a BM in the middle of therapy session. Appearance At conclusion of PT treatment patients returns to bed where he has access to tray, call button, and all needs have been met, bed alarm on. Mental Status Patient Orientation: Person, Place, Eyes Open, Situation, [place] Attachments: Oxygen, IV Transfers SCALE: Activities may be completed with or without assistive devices. 8-Kqxlzrkkia-uznnbbp completes the activity by him/herself with no assistance from a helper. 5-Set-up or Clean-up Assistance-helper sets up or cleans up; patient completes activity. [place] assists only prior to or following the activity. 4-Supervision or Touching Assistance-helper provides verbal cues and/or touching/steadying and/or contact guard assistance as patient completes activity. Assistance may be provided throughout the activity or intermittently. 3-Partial/Moderate Assistance-helper does LESS THAN HALF the effort. [place] lifts, holds or supports trunk or limbs, but provides less than half the effort. 2-Substantial/Maximal Assistance-helper does MORE THAN HALF the effort. [place] lifts or holds trunk or limbs and provides more than half the effort. 3-Neumzozxs-cipwjg does ALL the effort. Patient does none of the effort to complete the activity. Or, the assistance of 2 or more helpers is required for the patient to complete the activity. If activity was not attempted, code reason: 7-Patient Refused. 9-Not Applicable-not attempted and the patient did not perform the activity before the current illness, exacerbation or injury. 10-Not Attempted due to Environmental Limitations-(lack of equipment, weather restraints, etc.). 88-Not Attempted due to Medical Conditions or Safety Concerns. Sit to Lying (QC): 3 Lying to Sitting/Side of Bed(Q: 3 Sit to Stand (QC): 3 Chair/Lzq-td-Tobcu Xfer(QC): 3 Toilet Transfer (QC): 3 Mod assist with LEs lying<->EOB. Min assist with sit to stand, bed, and toilet transfers. Gait Training Does the Patient Walk?: Yes Distance: 10'x2 Walk 10 feet (QC): 4 Gait Assistive Device: FWW CGA Treatments Gait training Assessment Current Status: Poor Progress Pt is impulsive with movements and does not take time to listen to instructions; while on EOB pt was receiving instructions when he stood and began ambulating towards hallway door. While walking pt states he needs to complete a BM; pt was unable to make it to the commode beside him. Pt appears tired and eager to return to bed. PT Assistant Press Operator Offset Goals Assistant Press Operator Offset Goals PT Assistant Press Operator Offset Goals Time Frame: Apr 06, 2020 Roll Left & Right (QC): 4 Sit to Lying (QC): 4 Lying-Sitting on Side/Bed(QC): 4 Sit to Stand (QC): 4 Chair/Ikl-pt-Hrvdz Xfer(QC): 4 Toilet Transfer (QC): 4 Does the Patient Walk: No and Walking Goal IS indicated Walk 10 feet (QC): 4 Walk 50ft with 2 Turns (QC): 4 Walk 150 ft (QC): 4 PT Plan Problem List Problem List: Activity Tolerance, Functional Strength, Safety, Balance, Gait, Transfer, Bed Mobility, ROM Treatment/Plan Treatment Plan: Continue Plan of Care Treatment Plan: Bed Mobility, Education, Functional Activity Oksana, Functional Strength, Gait, Safety, Therapeutic Exercise, Transfers Treatment Duration: Apr 06, 2020 Frequency: 5 times per week (increase to 6/wk when patient complies with OOB activity) Estimated Hrs Per Day: .5 hour per day Safety Risks/Education Patient Education: Gait Training, Transfer Techniques, Correct Positioning, Safety Issues Teaching Recipient: Patient Teaching Methods: Demonstration, Discussion Response to Teaching: Reinforcement Needed Time/GCodes Time In: 0935 Time Out: 0950 Total Billed Treatment Time: 15 Total Billed Treatment 1 visit FA WILY DE LA ROSA PT Mar 20, 2020 10:20
--- NOTE | 2020-03-20 11:05 | Occupational Ther Daily Note ---
OT Current Status-Daily Note Subjective Pt lying in bed with eyes closed. Pt opened eyes to name then closed them again and turned head. Pt initially stated he didn't want to do anything. CROUCH encouraged pt to move. Pt finally agrees to therapy. Mental Status/Objective Patient Orientation: Person Attachments: Blanchard Catheter, IV ADL-Treatment Pt refused to complete any bathing or oral care. Pt stated that he wanted to cover up his legs. CROUCH suggested underwear, pt agrees. Pt refused to sit EOB to don. Pt able to roll side to side and lift hips while CROUCH donned underwear. Pt declined to scoot up in bed to reposition. After therapy, pt lying in bed watching TV. Safety measures in place, call light in reach. All needs met in room. Therapy Code Descriptions/Definitions Functional [place] Measure: 0=Not Assessed/NA 4=Minimal Assistance 1=Total Assistance 5=Supervision or Setup 2=Maximal Assistance 6=Modified [place] 3=Moderate Assistance 7=Complete IndependenceSCALE: Activities may be completed with or without assistive devices. 8-Ayftjtheqj-ltdbjnu completes the activity by him/herself with no assistance from a helper. 5-Set-up or Clean-up Assistance-helper sets up or cleans up; patient completes activity. [place] assists only prior to or following the activity. 4-Supervision or Touching Assistance-helper provides verbal cues and/or touching/steadying and/or contact guard assistance as patient completes ac tivity. Assistance may be provided throughout the activity or intermittently. 3-Partial/Moderate Assistance-helper does LESS THAN HALF the effort. [place] lifts, holds or supports trunk or limbs, but provides less than half the effort. 2-Substantial/Maximal Assistance-helper does MORE THAN HALF the effort. [place] lifts or holds trunk or limbs and provides more than half the effort. 4-Vfpdfjgpl-ensvsb does ALL the effort. Patient does none of the effort to complete the activity. Or, the assistance of 2 or more helpers is required for the patient to complete the activity. If activity was not attempted, code reason: 7-Patient Refused. 9-Not Applicable-not attempted and the patient did not perform the activity before the current illness, exacerbation or injury. 10-Not Attempted due to Environmental Limitations-(lack of equipment, weather restraints, etc.). 88-Not Attempted due to Medical Conditions or Safety Concerns. Lower Body Dressing (QC): 2 OT Custodial Goals Custodial Goals Time Frame: Mar 22, 2020 Eating (QC): 6 Oral Hygiene (QC): 6 Toileting Hygiene (QC): 6 Shower/Bathe Self (QC): 4 Upper Body Dressing (QC): 6 Lower Body Dressing (QC): 4 On/Off Footwear (QC): 6 Additional Goals: 1-Demonstrate ADL Tasks, 2-Verbalize Understanding, 3- ImproveStrength/Oksana 1=Demonstrate adherence to instructed precautions during ADL tasks. 2=Patient will verbalize/demonstrate understanding of assistive devices/modifications for ADL. 3=Patient will improve strength/tolerance for activity to enable patient to perform ADL's. OT Education/Plan Problem List/Assessment Assessment: Decreased Activ Tolerance, Impaired Cognition, Impaired Self-Care Skills Discharge Recommendations Plan/Recommendations: Continue POC Treatment Plan/Plan of Care Patient would benefit from OT for education, treatment and training to promote independence in ADL's, mobility, safety and/or upper extremity function for ADL's. Plan of Care: ADL Retraining, Caregiver Training, Functional Mobility, UE Funct Exercise/Act Treatment Duration: Mar 22, 2020 Frequency: 5 times per week Estimated Hrs Per Day: .25 hour per day Agreement: Yes Rehab Potential: Fair Time/GCodes Start Time: 10:37 Stop Time: 11:00 Total Time Billed (hr/min): 23 Billed Treatment Time 1 visit-FA 2 (23 min) MARSHA VALDEZ Mar 20, 2020 11:05
[2020-03-20 12:00] VITALS: BP 185/81
--- NOTE | 2020-03-20 12:47 | NUR ---
DACIA/SAVI follow up. CM/SS sent secure e-mail for updated clinical to Shavon from [facility]. Shavon reports that she has not heard from the insurance company yet at this time. DACIA/SS visited with Vicente the patient's son to give an update and inform him that patient did fill out DPOA paper work. He verbalized understanding. The patient's son reports he will go over to the patient's house and start getting it cleaned up for when he is able to go home. Vicente did not have any further questions.
[2020-03-20 16:08] VITALS: BP 173/79
--- NOTE | 2020-03-20 16:58 | Progress Note - Hospitalist ---
Subjective HPI/CC On Admission Date Seen by Provider: Mar 20, 2020 Time Seen by Provider: 09:15 Pt is a 74yoCM who presented to the ER due to weakness. He is unsure why he is here. He knows his little brother bought him here and that he was weak but is unsure about any other details. He is unsure if he has pain. All other informati on is obtained from the records. Apparently he was brought in by his brother and friend due to inability to walk. His brother found him sitting in chair covers in urine and feces. Apparently he had been there for 2-3 days unable to move. Patient does not recall this. He was found to have cellulitis of his scrotum with a lactic acid of over 8 and hypotension. He was admitted to the ICU for sepsis. Subjective/Events-last exam He he is sleeping comfortably in bed. He denies any pain. He has no other complaints or concerns. Focused Exam Time of Focused Exam: 16:15 Objective Exam Vital Signs Vital Signs Date Time Temp Pulse Resp B/P (MAP) Pulse Ox O2 Delivery O2 Flow Rate FiO2 03/20/20 16:08 36.7 82 18 173/79 (110) 97 Room Air 03/18/20 15:12 21 Capillary Refill : Less Than 3 Seconds General Appearance: No Apparent Distress, Obese Respiratory: Lungs Clear, Normal Breath Sounds, No Respiratory Distress Cardiovascular: Regular Rate, Rhythm, No Edema, No Murmur Gastrointestinal: Normal Bowel Sounds, Non Tender, Soft Extremity: Normal Inspection, Non Tender, No Pedal Edema Neurologic/Psychiatric: Alert, Oriented x3, No Motor/Sensory Deficits, Normal Mood/Affect Skin: Normal Color, Warm/Dry Results/Procedures Lab Laboratory Tests 03/20/20 06:50 Patient resulted labs reviewed. Imaging: Reviewed Imaging Report Assessment/Plan Assessment and Plan Assess & Plan/Chief Complaint Cellulitis Pulm and Surgery consulted, appreciate recs Transitioned to Augmentin HTN Continue Amlodipine Hold lisinopril and HCTZ for NETTA HLD Hold statin for LFTs Debility PT/OT Planning for discharge to SNF DVT ppx: Lovenox Septic shock, resolved NETTA, resolved Rhabdomyolysis, resolved Elevated LFTs, resolved Critical Care Critically Ill Patient Diagnosis/Problems Diagnosis/Problems (1) Cellulitis Status: Acute Qualifiers: Site of cellulitis: unspecified site Qualified Codes: L03.90 - Cellulitis, unspecified (2) Rhabdomyolysis Status: Acute Qualifiers: Rhabdomyolysis type: non-traumatic Qualified Codes: M62.82 - Rhabdomyolysis (3) Debility Status: Acute Clinical Quality Measures DVT/VTE Risk/Contraindication: Risk Factor Score Per Nursin RFS Level Per Nursing on Admit: 4+=Very High ANDREI BRAMBILA MD Mar 20, 2020 16:58
[2020-03-20 19:35] VITALS: BP 172/96
[2020-03-21] VITALS: BP 135/76
[2020-03-21 04:00] VITALS: BP 154/79
[2020-03-21] MEDS: KCL 20 MEQ TAB (K-DUR) PO SCH ×2 (06:14)
[2020-03-21] MEDS: POTASSIUM CL 10MEQ/50ML IVPB 50 ML IV SCH (06:14)
[2020-03-21] MEDS: MAGNESIUM 1 GM/100 ML IVPB 100 ML IV SCH ×2 (06:15→06:38)
[2020-03-21 08:00] VITALS: BP 135/73
[2020-03-21] MEDS: CLOPIDOGREL 75 MG (PLAVIX) TABLET PO SCH (08:40)
[2020-03-21] MEDS: AUGMENTIN 875 MG TAB (AMOXICILLIN/CLAVULANATE) PO SCH ×2 (08:40→18:16)
[2020-03-21] MEDS: amLODIPine 5 MG (NORVASC) TAB PO SCH (08:41)
[2020-03-21] MEDS: ENOXAPARIN 40 MG/0.4 ML (LOVENOX) SYR SC SCH (09:08)
--- NOTE | 2020-03-21 11:21 | Occupational Ther Daily Note ---
OT Current Status-Daily Note Subjective Pt alert, lying in bed. Pt agrees to therapy. Mental Status/Objective Patient Orientation: Person Attachments: IV, Oxygen ADL-Treatment Therapy Code Descriptions/Definitions Functional [place] Measure: 0=Not Assessed/NA 4=Minimal Assistance 1=Total Assistance 5=Supervision or Setup 2=Maximal Assistance 6=Modified [place] 3=Moderate Assistance 7=Complete IndependenceSCALE: Activities may be completed with or without assistive devices. 8-Xovolvrfzg-oanlvfg completes the activity by him/herself with no assistance from a helper. 5-Set-up or Clean-up Assistance-helper sets up or cleans up; patient completes activity. [place] assists only prior to or following the activity. 4-Supervision or Touching Assistance-helper provides verbal cues and/or touching/steadying and/or contact guard assistance as patient completes activity. Assistance may be provided throughout the activity or intermittently. 3-Partial/Moderate Assistance-helper does LESS THAN HALF the effort. [place] lifts, holds or supports trunk or limbs, but provides less than half the effort. 2-Substantial/Maximal Assistance-helper does MORE THAN HALF the effort. [place] lifts or holds trunk or limbs and provides more than half the effort. 7-Fwexnqdlg-mwydcd does ALL the effort. Patient does none of the effort to complete the activity. Or, the assistance of 2 or more helpers is required for the patient to complete the activity. If activity was not attempted, code reason: 7-Patient Refused. 9-Not Applicable-not attempted and the patient did not perform the activity before the current illness, exacerbation or injury. 10-Not Attempted due to Environmental Limitations-(lack of equipment, weather restraints, etc.). 88-Not Attempted due to Medical Conditions or Safety Concerns. Other Treatment Co-treat with PT for skilled care due to decreased mobility x2 and dependent ADLs. PT focusing on mobility while OT focusing on ADLs with mobility. Dependent to don/doff socks. Dependent to manipulate clothing and toileting. Assist x2 for all mobility and ADLs. Assist x2 to ambulate out of room into hallway and back. Completed 1 set 10 reps of shldr flexion. After session, pt sitting in recliner with call light/phone in reach. All needs met in room. OT Plant Pathologist Goals Plant Pathologist Goals Time Frame: Mar 22, 2020 Eating (QC): 6 Oral Hygiene (QC): 6 Toileting Hygiene (QC): 6 Shower/Bathe Self (QC): 4 Upper Body Dressing (QC): 6 Lower Body Dressing (QC): 4 On/Off Footwear (QC): 6 Additional Goals: 1-Demonstrate ADL Tasks, 2-Verbalize Understanding, 3- ImproveStrength/Oksana 1=Demonstrate adherence to instructed precautions during ADL tasks. 2=Patient will verbalize/demonstrate understanding of assistive rody maximo/modifications for ADL. 3=Patient will improve strength/tolerance for activity to enable patient to perform ADL's. OT Education/Plan Problem List/Assessment Assessment: Decreased Activ Tolerance, Decreased Safety Aware, Dependent Transfers, Impaired Self-Care Skills Discharge Recommendations Plan/Recommendations: Continue POC Treatment Plan/Plan of Care Patient would benefit from OT for education, treatment and training to promote independence in ADL's, mobility, safety and/or upper extremity function for ADL's. Plan of Care: ADL Retraining, Caregiver Training, Functional Mobility, UE Funct Exercise/Act Treatment Duration: Mar 22, 2020 Frequency: 5 times per week Estimated Hrs Per Day: .25 hour per day Agreement: Yes Rehab Potential: Fair Time/GCodes Start Time: 10:25 Stop Time: 10:36 Total Time Billed (hr/min): 11 Billed Treatment Time 1 visit-FA 1 (11 min) MARSHA VALDEZ Mar 21, 2020 11:21
--- NOTE | 2020-03-21 12:04 | Physical Therapy Daily Note ---
PT Daily Note-Current Subjective [place] with OT due to complexity of patient status. Patient agrees to therapy. Mental Status Patient Orientation: Person, Time, Situation Transfers SCALE: Activities may be completed with or without assistive devices. 3-Hgazngyzer-rylxvzl completes the activity by him/herself with no assistance from a helper. 5-Set-up or Clean-up Assistance-helper sets up or cleans up; patient completes activity. [place] assists only prior to or following the activity. 4-Supervision or Touching Assistance-helper provides verbal cues and/or touching/steadying and/or contact guard assistance as patient completes activity. Assistance may be provided throughout the activity or intermittently. 3-Partial/Moderate Assistance-helper does LESS THAN HALF the effort. [place] lifts, holds or supports trunk or limbs, but provides less than half the effort. 2-Substantial/Maximal Assistance-helper does MORE THAN HALF the effort. [place] lifts or holds trunk or limbs and provides more than half the effort. 0-Yhbhqchjp-hxbtdh does ALL the effort. Patient does none of the effort to complete the activity. Or, the assistance of 2 or more helpers is required for the patient to complete the activity. If activity was not attempted, code reason: 7-Patient Refused. 9-Not Applicable-not attempted and the patient did not perform the activity before the current illness, exacerbation or injury. 10-Not Attempted due to Environmental Limitations-(lack of equipment, weather restraints, etc.). 88-Not Attempted due to Medical Conditions or Safety Concerns. Roll Left & Right (QC): 2 Lying to Sitting/Side of Bed(Q: 2 Sit to Stand (QC): 2 (x 2) Chair/Tya-dn-Kjihy Xfer(QC): 2 (patient is impulsive to sit in recliner from standing position and 1 foot away from chair. Patient required max assist to attain safely. ) Gait Training Does the Patient Walk?: Yes Distance: 200' Walk 10 feet (QC): 2 Walk 50 ft with 2 Turns(QC): 2 Walk 150 ft (QC): 2 Gait Persons Needed: 2 Gait Assistive Device: FWW slightly improved gait sequence with foot clearance half of time. Patient demonstrates shuffle gait sequence. Exercises Seated Therapy Exercises: Long arc quads Seated Reps: 8 (with much encouragement to participate and complete) Assessment Patient ceases treatment by not continuing to perform exercises requested by therapist. PT/OT cotreat due to complexity of tasks and patient's ability. PT Senior Cyber Security Analyst Goals Senior Cyber Security Analyst Goals PT Senior Cyber Security Analyst Goals Time Frame: Apr 06, 2020 Roll Left & Right (QC): 4 Sit to Lying (QC): 4 Lying-Sitting on Side/Bed(QC): 4 Sit to Stand (QC): 4 Chair/Wot-fp-Xxwcc Xfer(QC): 4 Toilet Transfer (QC): 4 Does the Patient Walk: No and Walking Goal IS indicated Walk 10 feet (QC): 4 Walk 50ft with 2 Turns (QC): 4 Walk 150 ft (QC): 4 PT Plan Treatment/Plan Treatment Plan: Continue Plan of Care Treatment Plan: Bed Mobility, Education, Functional Activity Oksana, Functional Strength, Gait, Safety, Therapeutic Exercise, Transfers Treatment Duration: Apr 06, 2020 Frequency: 5 times per week (increase to 6/wk when patient complies with OOB activity) Estimated Hrs Per Day: .5 hour per day Time/GCodes Time In: 1025 Time Out: 1036 Total Billed Treatment Time: 11 Total Billed Treatment 1 visit FA 11 min DERIK MCGOWAN PT Mar 21, 2020 12:04
--- NOTE | 2020-03-21 14:08 | Progress Note - Hospitalist ---
Subjective HPI/CC On Admission Date Seen by Provider: Mar 21, 2020 Time Seen by Provider: 09:15 Pt is a 74yoCM who presented to the ER due to weakness. He is unsure why he is here. He knows his little brother bought him here and that he was weak but is unsure about any other details. He is unsure if he has pain. All other informati on is obtained from the records. Apparently he was brought in by his brother and friend due to inability to walk. His brother found him sitting in chair covers in urine and feces. Apparently he had been there for 2-3 days unable to move. Patient does not recall this. He was found to have cellulitis of his scrotum with a lactic acid of over 8 and hypotension. He was admitted to the ICU for sepsis. Subjective/Events-last exam He denies fevers and chills. He denies trouble breathing. He denies cough. He denies dysuria. He denies abdominal pain. He denies nausea and vomiting. Focused Exam Time of Focused Exam: 16:15 Objective Exam Vital Signs Vital Signs Date Time Temp Pulse Resp B/P (MAP) Pulse Ox O2 Delivery O2 Flow Rate FiO2 03/21/20 08:00 36.1 86 20 135/73 (93) 97 Room Air 03/18/20 15:12 21 Capillary Refill : Less Than 3 Seconds General Appearance: No Apparent Distress, Obese Respiratory: Lungs Clear, Normal Breath Sounds, No Respiratory Distress Cardiovascular: Regular Rate, Rhythm, No Edema, No Murmur Gastrointestinal: Normal Bowel Sounds, Non Tender, Soft Extremity: Normal Inspection, Non Tender, No Pedal Edema Neurologic/Psychiatric: Alert, Oriented x3, Normal Mood/Affect, Motor Weakness Skin: Normal Color, Warm/Dry Results/Procedures Lab Laboratory Tests 03/21/20 05:28 Patient resulted labs reviewed. Imaging: Reviewed Imaging Report Assessment/Plan Assessment and Plan Assess & Plan/Chief Complaint Cellulitis Pulm and Surgery consulted, appreciate recs Continue Augmentin Leukocytosis WBC elevated today No signs/symptoms of infection Procalcitonin normal, improved from admission Continue to monitor HTN Continue Amlodipine Hold lisinopril and HCTZ HLD Hold statin for LFTs Debility PT/OT Planning for discharge to SNF DVT ppx: Lovenox Septic shock, resolved NETTA, resolved Rhabdomyolysis, resolved Elevated LFTs, resolved Critical Care Critically Ill Patient Diagnosis/Problems Diagnosis/Problems (1) Cellulitis Status: Acute Qualifiers: Site of cellulitis: unspecified site Qualified Codes: L03.90 - Cellulitis, unspecified (2) Rhabdomyolysis Status: Resolved Qualifiers: Rhabdomyolysis type: non-traumatic Qualified Codes: M62.82 - Rhabdomyoly sis Resolution Date/Time: 03/21/20 @ 14:15 (3) Debility Status: Acute Clinical Quality Measures DVT/VTE Risk/Contraindication: Risk Factor Score Per Nursin RFS Level Per Nursing on Admit: 4+=Very High ANDREI BRAMBILA MD Mar 21, 2020 14:08
[2020-03-21 14:23] VITALS: BP 135/73
--- NOTE | 2020-03-21 14:55 | NUR ---
DACIA/SAVI follow up. CM/SS contacted Shavon at the [facility] to follow up and inquire about the acceptance/denial from insurance. She reports she has not heard back from the insurance at this time. DACIA/SS sent a text later in the day to follow up again. No reply back at this time. DACIA/SAVI received a [employer] contact number from Nurse Adriana (Trinh [phone]). CM/SS attempted to contact Trinh; no answer, voice mail left.
[2020-03-21 15:59] VITALS: BP 159/80
[2020-03-21] MEDS: ACETAMINOPHEN 325 MG TABLET PO PRN (20:08)
[2020-03-21 23:15] VITALS: BP 119/58
[2020-03-22 08:00] VITALS: BP 142/79
[2020-03-22 08:32] LABS: BASOPHILS % (AUTO) 1 % (0-10); EOSINOPHILS # (AUTO) 0.2 10^3/uL (0.0-0.3); EOSINOPHILS % (AUTO) 4 % (0-10); HEMATOCRIT 38 % (40-54); HEMOGLOBIN 12.2 g/dL (13.3-17.7); LYMPHOCYTES # (AUTO) 0.7 10^3/uL (1.0-4.0); LYMPHOCYTES % (AUTO) 17 % (12-44); MEAN CORPUSCULAR HEMOGLOBIN 29 pg (25-34); MEAN CORPUSCULAR HGB CONC 32 g/dL (32-36); MEAN CORPUSCULAR VOLUME 91 fL (80-99); MEAN PLATELET VOLUME 10.5 fL (9.0-12.2); MONOCYTES # (AUTO) 0.2 10^3/uL (0.0-1.0); MONOCYTES % (AUTO) 5 % (0-12); NEUTROPHILS # (AUTO) 3.1 10^3/uL (1.8-7.8); NEUTROPHILS % (AUTO) 74 % (42-75); PLATELET COUNT 247 10^3/uL (130-400); WHITE BLOOD COUNT 4.2 10^3/uL (4.3-11.0)
[2020-03-22] MEDS: CLOPIDOGREL 75 MG (PLAVIX) TABLET PO SCH (08:50)
[2020-03-22] MEDS: ENOXAPARIN 40 MG/0.4 ML (LOVENOX) SYR SC SCH (08:50)
[2020-03-22] MEDS: amLODIPine 10 MG (NORVASC) TAB PO SCH (08:50)
[2020-03-22] MEDS: AUGMENTIN 875 MG TAB (AMOXICILLIN/CLAVULANATE) PO SCH ×2 (08:50→17:26)
[2020-03-22 09:00] LABS: BUN/CREATININE RATIO 15; CALCIUM 8.5 MG/DL (8.5-10.1); CARBON DIOXIDE 21 MMOL/L (21-32); CHLORIDE 104 MMOL/L (98-107); CREATININE SERUM 1.03 MG/DL (0.60-1.30); GFR ESTIMATED > 60; GLUCOSE 142 MG/DL (70-105); POTASSIUM 4.1 MMOL/L (3.6-5.0); SODIUM 137 MMOL/L (135-145)
[2020-03-22] MEDS: POTASSIUM CL 10MEQ/50ML IVPB 50 ML IV SCH (09:19)
[2020-03-22] MEDS: MAGNESIUM 1 GM/100 ML IVPB 100 ML IV SCH (09:20)
[2020-03-22] MEDS: KCL 20 MEQ TAB (K-DUR) PO SCH ×2 (09:20)
--- NOTE | 2020-03-22 13:57 | Physical Therapy Daily Note ---
PT Daily Note-Current Subjective Pt presents sleeping supine in bed upon arrival to room, agreeable to physical therapy treatment at this time. Pt has no c/o pain. Appearance Following session, pt up in recliner with BLEs elevated, call light and tray within reach, all needs met at this time. Mental Status Patient Orientation: Person, Confused Transfers SCALE: Activities may be completed with or without assistive devices. 2-Jlogzcjmgd-dcipxaw completes the activity by him/herself with no assistance from a helper. 5-Set-up or Clean-up Assistance-helper sets up or cleans up; patient completes activity. [place] assists only prior to or following the activity. 4-Supervision or Touching Assistance-helper provides verbal cues and/or touching/steadying and/or contact guard assistance as patient completes activity. Assistance may be provided throughout the activity or intermittently. 3-Partial/Moderate Assistance-helper does LESS THAN HALF the effort. [place] lifts, holds or supports trunk or limbs, but provides less than half the effort. 2-Substantial/Maximal Assistance-helper does MORE THAN HALF the effort. [place] lifts or holds trunk or limbs and provides more than half the effort. 0-Kllpmhzva-enzmsp does ALL the effort. Patient does none of the effort to com plete the activity. Or, the assistance of 2 or more helpers is required for the patient to complete the activity. If activity was not attempted, code reason: 7-Patient Refused. 9-Not Applicable-not attempted and the patient did not perform the activity before the current illness, exacerbation or injury. 10-Not Attempted due to Environmental Limitations-(lack of equipment, weather restraints, etc.). 88-Not Attempted due to Medical Conditions or Safety Concerns. Roll Left & Right (QC): 3 Lying to Sitting/Side of Bed(Q: 3 Sit to Stand (QC): 3 Gait Training Distance: 60 ft Walk 10 feet (QC): 3 Walk 50 ft with 2 Turns(QC): 3 Pt with fast, shuffling gait sequence, pt doesnt respond well to verbal cues to slow down or to take larger steps, he continues to ambulate quickly throughout visit. When returning to seated position in recliner, pt impulsive and quickly turns body to return to sit. Assessment Current Status: Fair Progress Pt continues to require assistance with all functional mobility, will continue to progress activity tolerance as able PT Longterm Goals Flight Line Mechanic Goals PT Longterm Goals Time Frame: Apr 06, 2020 Roll Left & Right (QC): 4 Sit to Lying (QC): 4 Lying-Sitting on Side/Bed(QC): 4 Sit to Stand (QC): 4 Chair/Xeu-ky-Ubqxa Xfer(QC): 4 Toilet Transfer (QC): 4 Does the Patient Walk: No and Walking Goal IS indicated Walk 10 feet (QC): 4 Walk 50ft with 2 Turns (QC): 4 Walk 150 ft (QC): 4 PT Plan Problem List Problem List: Activity Tolerance, Functional Strength, Safety, Balance, Gait, Transfer, Bed Mobility, ROM Treatment/Plan Treatment Plan: Continue Plan of Care Treatment Plan: Bed Mobility, Education, Functional Activity Oksana, Functional Strength, Gait, Safety, Therapeutic Exercise, Transfers Treatment Duration: Apr 06, 2020 Frequency: 5 times per week (increase to 6/wk when patient complies with OOB activity) Estimated Hrs Per Day: .5 hour per day Time/GCodes Time In: 847 Time Out: 859 Total Billed Treatment 1 visit GT (12') JHONATAN PERDUE PT Mar 22, 2020 13:56
--- NOTE | 2020-03-22 13:57 | Progress Note - Hospitalist ---
Subjective HPI/CC On Admission Date Seen by Provider: Mar 22, 2020 Time Seen by Provider: 10:20 Pt is a 74yoCM who presented to the ER due to weakness. He is unsure why he is here. He knows his little brother bought him here and that he was weak but is unsure about any other details. He is unsure if he has pain. All other informati on is obtained from the records. Apparently he was brought in by his brother and friend due to inability to walk. His brother found him sitting in chair covers in urine and feces. Apparently he had been there for 2-3 days unable to move. Patient does not recall this. He was found to have cellulitis of his scrotum with a lactic acid of over 8 and hypotension. He was admitted to the ICU for sepsis. Subjective/Events-last exam He reports no complaints or concerns. He denies any fevers. He denies any shortness of breath. Focused Exam Time of Focused Exam: 16:15 Objective Exam Vital Signs Vital Signs Date Time Temp Pulse Resp B/P (MAP) Pulse Ox O2 Delivery O2 Flow Rate FiO2 03/22/20 09:00 96 Room Air 03/22/20 08:00 36.1 65 20 142/79 (100) 03/21/20 14:23 21 Capillary Refill : Less Than 3 SecondsLess Than 3 Seconds General Appearance: No Apparent Distress, Obese Respiratory: Lungs Clear, Normal Breath Sounds, No Respiratory Distress Cardiovascular: Regular Rate, Rhythm, No Edema, No Murmur Gastrointestinal: Normal Bowel Sounds, Non Tender, Soft Extremity: Normal Inspection, Non Tender, Pedal Edema Neurologic/Psychiatric: Alert, Motor Weakness Skin: Normal Color, Warm/Dry Results/Procedures Lab Laboratory Tests 03/22/20 08:20 Patient resulted labs reviewed. Imaging: Reviewed Imaging Report Assessment/Plan Assessment and Plan Assess & Plan/Chief Complaint Cellulitis Pulm and Surgery consulted, appreciate recs Continue Augmentin HTN Continue Amlodipine Hold lisinopril and HCTZ HLD Hold statin for LFTs Debility PT/OT Planning for discharge to SNF DVT ppx: Lovenox Septic shock, resolved NETTA, resolved Rhabdomyolysis, resolved Elevated LFTs, resolved Critical Care Critically Ill Patient Diagnosis/Problems Diagnosis/Problems (1) Cellulitis Status: Acute Qualifiers: Site of cellulitis: unspecified site Qualified Codes: L03.90 - Cellulitis, unspecified (2) Rhabdomyolysis Status: Resolved Qualifiers: Rhabdomyolysis type: non-traumatic Qualified Codes: M62.82 - Rhabdomyolysis Resolution Date/Time: 03/21/20 @ 14:15 (3) Debility Status: Acute Clinical Quality Measures DVT/VTE Risk/Contraindication: Risk Factor Score Per Nursin RFS Level Per Nursing on Admit: 4+=Very High ANDREI BRAMBILA MD Mar 22, 2020 13:57
--- NOTE | 2020-03-22 14:55 | Occupational Ther Daily Note ---
OT Current Status-Daily Note Subjective Pt laying in bed, agreeable to OT tx with encouragement. ADL-Treatment Therapy Code Descriptions/Definitions Functional [place] Measure: 0=Not Assessed/NA 4=Minimal Assistance 1=Total Assistance 5=Supervision or Setup 2=Maximal Assistance 6=Modified [place] 3=Moderate Assistance 7=Complete IndependenceSCALE: Activities may be completed with or without assistive devices. 1-Qssqlvokxc-nxbvhvq completes the activity by him/herself with no assistance from a helper. 5-Set-up or Clean-up Assistance-helper sets up or cleans up; patient completes activity. [place] assists only prior to or following the activity. 4-Supervision or Touching Assistance-helper provides verbal cues and/or touching/steadying and/or contact guard assistance as patient completes activity. Assistance may be provided throughout the activity or intermittently. 3-Partial/Moderate Assistance-helper does LESS THAN HALF the effort. [place] lifts, holds or supports trunk or limbs, but provides less than half the effort. 2-Substantial/Maximal Assistance-helper does MORE THAN HALF the effort. [place] l ifts or holds trunk or limbs and provides more than half the effort. 4-Monxqsqds-ijolpm does ALL the effort. Patient does none of the effort to complete the activity. Or, the assistance of 2 or more helpers is required for the patient to complete the activity. If activity was not attempted, code reason: 7-Patient Refused. 9-Not Applicable-not attempted and the patient did not perform the activity before the current illness, exacerbation or injury. 10-Not Attempted due to Environmental Limitations-(lack of equipment, weather restraints, etc.). 88-Not Attempted due to Medical Conditions or Safety Concerns. Other Treatment Pt laying in bed, in order to increase BUE strength and functional endurance, pt performed x15 reps BUE of the following exercises: shoulder flexion, elbow flexion/extension, finger flexion/extension, and wrist flexion/extension. Between each exercise, pt placed hands behind his head in reclined position, requiring cues for redirection of task, and demonstration during each exercise. OT educated pt on the purpose and benefits of exercises, he verbalized understanding. OT encouraged pt to participate in ADLs, offering to assist him with oral care, pt declined stating he has no teeth. OT then encouraged pt to complete face washing and and hair brushing but pt declined. Post OT tx, pt laying in bed, call light in reach and all needs met. Education OT Patient Education: Correct positioning, Exercise program, Modified ADL techniques, Progress toward Goal/Update tx plan, Purpose of tx/functional activities Teaching Recipient: Patient Teaching Methods: Discussion Response to Teaching: Verbalize Understanding OT Radio Maintainer Goals Radio Maintainer Goals Time Frame: Mar 22, 2020 Eating (QC): 6 Oral Hygiene (QC): 6 Toileting Hygiene (QC): 6 Shower/Bathe Self (QC): 4 Upper Body Dressing (QC): 6 Lower Body Dressing (QC): 4 On/Off Footwear (QC): 6 Additional Goals: 1-Demonstrate ADL Tasks, 2-Verbalize Understanding, 3-ImproveStrength/Oksana 1=Demonstrate adherence to instructed precautions during ADL tasks. 2=Patient will verbalize/demonstrate understanding of assistive devices/modifications for ADL. 3=Patient will improve strength/tolerance for activity to enable patient to perf orm ADL's. OT Education/Plan Problem List/Assessment Assessment: Decreased Activ Tolerance, Decreased UE Strength, Impaired I ADL's, Impaired Self-Care Skills Discharge Recommendations Plan/Recommendations: Continue POC Treatment Plan/Plan of Care Patient would benefit from OT for education, treatment and training to promote independence in ADL's, mobility, safety and/or upper extremity function for ADL's. Plan of Care: ADL Retraining, Caregiver Training, Functional Mobility, UE Funct Exercise/Act Treatment Duration: Mar 22, 2020 Frequency: 5 times per week Estimated Hrs Per Day: .25 hour per day Agreement: Yes Rehab Potential: Fair Time/GCodes Start Time: 14:26 Stop Time: 14:36 Total Time Billed (hr/min): 11 Billed Treatment Time 1, EX JENSEN SARABIA OT Mar 22, 2020 14:55
[2020-03-22] MEDS ORDERED: AMOX1TAB12 PO (15:42)
--- NOTE | 2020-03-22 15:47 | Discharge Summary ---
Discharge Summary Reconcile Patient Problems Problems Reviewed?: Yes Hospital Course Hospital Course Date of Admission: Mar 14, 2020 at 18:26 Admission Diagnosis: septic shock due to cellulitis Family Physician/Provider: Date of Discharge: 03/22/20 Discharge Diagnosis: septic shock due to cellulitis Hospital Course: Arnold Juan is a 74-year-old male who was admitted with septic shock due to cellulitis. He was treated with IV fluids and antibiotics and he responded well. He was transitioned to oral antibiotics of Augmentin and he will complete a two-week course of antibiotics. His course was complicated by acute debility and he was discharged to [facility] for ongoing therapies. Labs and Pending Lab Test: Laboratory Tests 03/22/20 08:20: White Blood Count 4.2L, Red Blood Count 4.18L, Hemoglobin 12.2L, Hematocrit 38L, Mean Corpuscular Volume 91, Mean Corpuscular Hemoglobin 29, Mean Corpuscular Hemoglobin Concent 32, Red Cell Distribution Width 13.9, Platelet Count 247, Mean Platelet Volume 10.5, Immature Granulocyte % (Auto) 0, Neutrophils (%) (Auto) 74, Lymphocytes (%) (Auto) 17, Monocytes (%) (Auto) 5, Eosinophils (%) (Auto) 4, Basophils (%) (Auto) 1, Neutrophils # (Auto) 3.1, Lymphocytes # (Auto) 0.7L, Monocytes # (Auto) 0.2, Eosinophils # (Auto) 0.2, Basophils # (Auto) 0.0, Immature Granulocyte # (Auto) 0.0, Sodium Level 137, Potassium Level 4.1, Chloride Level 104, Carbon Dioxide Level 21, Anion Gap 12, Blood Urea Nitrogen 15, Creatinine 1.03, Estimat Glomerular Filtration Rate > 60, BUN/Creatinine Ratio 15, Glucose Level 142H, Calcium Level 8.5, Magnesium Level 2.0 Microbiology 03/14/20 Gram Stain - Final, Complete 03/14/20 Wound Culture - Final, Complete Mixed Bacterial Izzy Proteus vulgaris See Comments 03/14/20 MRSA Screen - Final, Complete MRSA not isolated 03/14/20 Blood Culture - Final, Complete No growth Home Meds Active Reported Hydrochlorothiazide 12.5 Mg Tablet 12.5 Mg PO DAILY Plavix (Clopidogrel Bisulfate) 75 Mg Tablet 75 Mg PO DAILY Atorvastatin Calcium 40 Mg Tablet 40 Mg PO HS Amlodipine Besylate 5 Mg Tablet 5 Mg PO DAILY Lisinopril 5 Mg Tablet 5 Mg PO DAILY Instructions to Patient/Family Assessment/Instructions Take medications as prescribed. Complete her course of antibiotics even if you're feeling better. Follow-up during the next detention rounds. Follow Up Appt.: next detention rounds Skilled NF Admit to: [facility] ([facility]) I certify that SNF services are required to be given on an inpatient basis because of the above named patient's need for correction care on a continuing basis for the conditions(s) for which he/she was receiving inpatient hospital services prior to his/her transfer to the [facility]. Half-Way Facility Order: Nursing Services, Grey Inspector-Evaluate & Treat, Physical Therapy-Evaluate & Treat Oxygen Delivery Method: Room Air Discharge Diet: No Restrictions Daily Activity as Tolerated: Yes Resuscitation Status: Full Code Andrei Brambila Mar 22, 2020 15:43 Pneu Vac Indicated: Yes Discharge Physical Exam General: Alert, Oriented X3, Cooperative, No Acute Distress, Other (obese) Lungs: Clear to Auscultation, Normal Air Movement Heart: Regular Rate, Normal S1, Normal S2, No Murmurs Abdomen: Normal Bowel Sounds, Soft, No Tenderness Extremities: No Edema, No Tenderness/Swelling Skin: No Significant Lesion Neuro: Normal Speech, Other (motor weakness) Psych/Mental Status: Mental Status NL, Mood NL ANDREI BRAMBILA MD Mar 22, 2020 15:47
[2020-03-22 16:24] VITALS: BP 127/78
--- NOTE | 2020-03-22 17:34 | NUR ---
CM/SS finalized discharge. Plan: Patient is discharging to [facility] tomorrow 03/23 skilled. mill supervisor time in coding clerk. Patient was denied by [employer] insurance; however, Dr. Argueta did a peer to peer and received approval. CM/SS contacted patient's son to give him an update. He verbalized understanding and expressed thanks. CM/SS made a ADS report. Report ID: [id number]
[2020-03-22] MEDS: ACETAMINOPHEN 325 MG TABLET PO PRN (20:32)
[2020-03-22 23:11] VITALS: BP 120/74
[2020-03-23 08:00] VITALS: BP 144/75
--- NOTE | 2020-03-23 08:28 | NUR ---
Eryn nurse at [facility] called this RN for report. stated Shavon would be here to get patient around 11AM 03/23/20. verbalized understanding of report no additional needs at this time
[2020-03-23] MEDS: AUGMENTIN 875 MG TAB (AMOXICILLIN/CLAVULANATE) PO SCH (09:16)
[2020-03-23] MEDS: ENOXAPARIN 40 MG/0.4 ML (LOVENOX) SYR SC SCH (09:16)
[2020-03-23] MEDS: amLODIPine 10 MG (NORVASC) TAB PO SCH (09:16)
[2020-03-23] MEDS: CLOPIDOGREL 75 MG (PLAVIX) TABLET PO SCH (09:16)
== END 2020-03-23 11:20 | DRG 871 ==
LOC: EDBD 15:52 → ER 15:52 → ICU 18:26 → 4TH 03-15 18:50
PROVIDERS: ADMIT Family Medicine; ATTEND Family Medicine
DX: A41.9 Sepsis, unspecified organism (principal); R65.21 Severe sepsis with septic shock; N17.9 Acute kidney failure, unspecified; E87.2 Acidosis; M62.82 Rhabdomyolysis; Z68.41 Body mass index [BMI] 40.0-44.9, adult; N49.2 Inflammatory disorders of scrotum; E86.0 Dehydration; I95.9 Hypotension, unspecified; I10 Essential (primary) hypertension; R74.01 Elevation of levels of liver transaminase levels; E66.9 Obesity, unspecified; R41.0 Disorientation, unspecified; F03.90 Unspecified dementia, unspecified severity, without behavioral disturbance, psychotic disturbance, mood disturbance, and anxiety; R53.81 Other malaise; H91.90 Unspecified hearing loss, unspecified ear; Z86.73 Personal history of transient ischemic attack (TIA), and cerebral infarction without residual deficits; Z87.891 Personal history of nicotine dependence; Z68.35 Body mass index [BMI] 35.0-35.9, adult
CPT/HCPCS: 36415; 51702; 71045; 80048; 80053; 80076; 81000; 82550; 82962; 83605; 83735; 84100; 84145; 85007; 85025; 85027; 86141; 87040; 87070; 87077; 87081; 87186; 87205; 87449; 87635; 90662; 94640; 94664; 94760; 96374

== ENCOUNTER → 2020-06-20 | Outpatient (CLI) | payer MEDICARE ==
[~2020-06-20] MED LIST changes: +AMLO-250 PO; +AMOX1TAB12 PO; +ATOR40TA70 PO; +CLOP75TA69 PO; +HYDR12.56 PO; -LISI-556 PO; +LISI-729 PO
== END ==
LOC: CVS 22:28
PROVIDERS: ATTEND Family Medicine
DX: Z01.89 Encounter for other specified special examinations (principal)
CPT/HCPCS: 87070; 87205

== ENCOUNTER 2023-04-12 23:25 | Inpatient (IN) | payer MEDICARE ==
[~2023-04-12] VITALS: Ht 160 cm; Wt 106.4 kg
[~2023-04-12 23:25] MED LIST changes: +CLOP-31 PO; -CLOP75TA69 PO; -LISI-729 PO; +LISI5TAB20 PO
--- NOTE | 2023-04-12 23:43 | ED Neurological Problem ---
General Chief Complaint: Neuro-Stroke Like Symptoms Stated Complaint: FALL,AMS Nursing Triage Note: Pt presents via EMS with c/o stroke like symptoms. Pt was found on the floor at approx 2250, was last seen at 2129 acting "normal" however staff reports he's not been acting like himself all day. Pt did not eat dinner. Pt is AOx4 upon arrival with L side neglect, L arm weakness and R side facial droop. Pt is on blood thinner, has camelia on head from fall. Source: patient History of Present Illness Date Seen by Provider: Apr 12, 2023 Time Seen by Provider: 23:25 Initial Comments Patient is a 77-year-old male who presents to the emergency department chief complaint of strokelike symptoms, lives at local assisted, found on routine rounds on the floor in his room. He thinks that he just "blacked out". He has notable rightward head turn and right gaze. He has flaccid paralysis of his left upper extremity. Obvious contusion to the left frontal temporal scalp. Awake, alert, oriented. Denies any complaints of pain currently. Reported by EMS to be on blood thinners. Patient was last seen well at 2129 per report of assisted staff. He is normally up and ambulatory at the assisted. Did not have dinner this evening. Reportedly has not been acting "himself" all day. Patient denies any complaints of chest pain or shortness of breath. He is not nauseated. Timing/Duration: 1-3 hours (Last known well 2129) Severity: severe Associated Symptoms: vision changes Allergies and Home Medications Allergies Coded Allergies: No Known Drug Allergies (Unverified , 03/14/20) Patient Home Medication List Home Medication List Reviewed: Yes Amlodipine Besylate (Amlodipine Besylate) 5 Mg Tablet, 5 MG PO DAILY, (Reported) Entered as Reported by: CATRACHITO FUNK on 03/15/20 1332 Amoxicillin/Potassium Clav (Amox Tr-K Clv 875-125 mg Tab) 1 Each Tablet, 875 MG PO BID WITH MEALS Prescribed by: ANDREI BRAMBILA on 03/22/20 1542 Atorvastatin Calcium (Atorvastatin Calcium) 40 Mg Tablet, 40 MG PO HS, (Reported) Entered as Reported by: CATRACHITO FUNK on 03/15/20 1332 Clopidogrel Bisulfate (Plavix) 75 Mg Tablet, 75 MG PO DAILY, (Reported) Entered as Reported by: CATRACHITO FUNK on 03/15/20 133 Hydrochlorothiazide (Hydrochlorothiazide) 12.5 Mg Tablet, 12.5 MG PO DAILY, (Reported) Entered as Reported by: CATRACHITO FUNK on 03/15/201331 Lisinopril (Lisinopril) 5 Mg Tablet, 5 MG PO DAILY, (Reported) Entered as Reported by: CATRACHITO FUNK on 03/15/201331 Review of Systems Review of Systems Constitutional: see HPI Eyes: No Symptoms Reported Ears, Nose, Mouth, Throat: no symptoms reported Respiratory: no symptoms reported Cardiovascular: no symptoms reported Gastrointestinal: no symptoms reported Musculoskeletal: no symptoms reported Skin: no symptoms reported Past Idzjctt-Ujtwxd-Xbhejx Hx Immunizations Up To Date Tetanus Booster (TDap): Unknown Past Medical History Surgeries: Yes Respiratory: Yes Currently Using CPAP: No Currently Using BIPAP: No Cardiac: Yes Neurological: Yes Stroke Genitourinary: No Gastrointestinal: No Chronic Diarrhea Musculoskeletal: Yes Arthritis Endocrine: No HEENT: Yes Loss of Vision: Bilateral Hearing Impairment: Hard of Hearing Cancer: No Psychosocial: Yes Depression Integumentary: Yes Family Medical History Completed stroke G8 BROTHER (HX OF 2 CVA) Hypertension G8 BROTHER G8 BROTHER No Pertinent Family Hx Physical Exam Vital Signs Vital Signs - First Documented 04/12/23 23:29 Temp 36.8 Pulse 112 Resp 16 B/P (MAP) 102/60 (74) Capillary Refill : Less Than 3 Seconds Height, Weight, BMI Height: 5'8.00" Weight: 213lbs. oz. 96.826609zi; 35.03 BMI Method: General Appearance: WD/WN, no apparent distress, obese, other (rightward gaze and right sided head turn) HEENT: other (PERRL; right sided gaze palsy; unable to protrude tongue) Neck: non-tender, other (head turned towards the right) Respiratory: lungs clear, normal breath sounds, no respiratory distress, no accessory muscle use Cardiovascular: irregularly irregular Gastrointestinal: normal bowel sounds, non tender, soft Extremities: pedal edema Neurologic/Psychiatric: alert, normal mood/affect, oriented x 3 Crainal Nerves: normal hearing, abnormal eye position, abnormal speech (slurred), facial droop (right) Motor/Sensory: weak motor strength LUE, weak motor strength RLE, weak motor strength LLE, other (noted to be trying to move/flex BLE) Skin: normal color, warm/dry, other (contusion to right fronto temporal scalp; abrasion to left hand) Stroke Onset of Symptoms Date of Onset of Symptoms: Apr 12, 2023 Onset of Symptoms: No Symptoms onset unknown: Yes NIH Stroke Scale Assessment Select: Initial Level of Consciousness: 0=Alert (0), Level of Consciousness- Questions: 0=Answers both month/age (0), Gaze: Forced Deviation (2), Facial Movement (Facial Paresis): 2=Partial paralysis (2), Motor Function-Arms Right: 0=No drift (0), Motor Function-Arms Left: 4=No movement (4), Motor Function-Legs Right: 2=Some effort/gravity (2), Motor Function-Legs Left: 2=Some effort/gravity (2), Best Language: 0=No aphasia (0), Dysarthria: 1=Mild to moderate loss (1), Extinction & Inattention: 2=Profo undHemiInattention (2), Total: 15 Stroke Thrombolytic Exclusion Age 18 or Over: Yes Acute intenal hemorrhage: Yes History of CVA: No Intracranial Hemorrhage: Yes Severe Hypertension: Yes GI or Bleed: No Subarachnoid Hemorrhage: No Intracranial Neoplasm/Aneurysm: No Surgery or Trauma: No Puncture of Non-Compressible V: No Recent CPR: No Organ Biopsy: No Recent Obstetric Delivery: No Glucose: No Significant Hepatic Dysfunctio: No NIH Stoke Scale >22: No Progress/Results/Core Measures Results/Orders Lab Results Laboratory Tests Test 04/12/23 23:32 04/12/23 23:35 04/13/23 00:01 04/13/23 00:02 Range/Units Glucometer 190 H 70-110 MG/DL White Blood Count 14.5 H 4.3-11.0 10^3/uL Red Blood Count 5.25 4.30-5.52 10^6/uL Hemoglobin 15.4 13.3-17.7 g/dL Hematocrit 48 40-54 % Mean Corpuscular Volume 92 80-99 fL Mean Corpuscular Hemoglobin 29 25-34 pg Mean Corpuscular Hemoglobin Concent 32 32-36 g/dL Red Cell Distribution Width 14.0 10.0-14.5 % Platelet Count 231 130-400 10^3/uL Mean Platelet Volume 12.8 H 9.0-12.2 fL Immature Granulocyte % (Auto) 1 % Neutrophils (%) (Auto) 86 H 42-75 % Lymphocytes (%) (Auto) 7 L 12-44 % Monocytes (%) (Auto) 5 0-12 % Eosinophils (%) (Auto) 1 0-10 % Basophils (%) (Auto) 0 0-10 % Neutrophils # (Auto) 12.5 H 1.8-7.8 10^3/uL Lymphocytes # (Auto) 1.0 1.0-4.0 10^3/uL Monocytes # (Auto) 0.8 0.0-1.0 10^3/uL Eosinophils # (Auto) 0.1 0.0-0.3 10^3/uL Basophils # (Auto) 0.1 0.0-0.1 10^3/uL Immature Granulocyte # (Auto) 0.1 0.0-0.1 10^3/uL Neutrophils % (Manual) 79 % Lymphocytes % (Manual) 4 % Monocytes % (Manual) 4 % Band Neutrophils 10 % Reactive Lymphocytes 3 % [employer] Cells SLIGHT Prothrombin Time 13.8 12.2-14.7 SEC INR Comment 1.0 0.8-1.4 Activated Partial Thromboplast Time 44 H 24-35 SEC D-Dimer 0.63 H 0.00-0.49 UG/ML Sodium Level 136 135-145 MMOL/L Potassium Level 4.0 3.6-5.0 MMOL/L Chloride Level 104 98-107 MMOL/L Carbon Dioxide Level 17 L 21-32 MMOL/L Anion Gap 15 H 5-14 MMOL/L Blood Urea Nitrogen 20 H 7-18 MG/DL Creatinine 1.46 H 0.60-1.30 MG/DL Estimat Glomerular Filtration Rate 49 BUN/Creatinine Ratio 14 Glucose Level 193 H 70-105 MG/DL Calcium Level 9.6 8.5-10.1 MG/DL Corrected Calcium 9.5 8.5-10.1 MG/DL Total Bilirubin 0.7 0.1-1.0 MG/DL Aspartate Amino Transf (AST/SGOT) 25 5-34 U/L Alanine Aminotransferase (ALT/SGPT) 24 0-55 U/L Alkaline Phosphatase 87 40-136 U/L Troponin I < 0.028 <0.028 NG/ML Total Protein 7.3 6.4-8.2 GM/DL Albumin 4.1 3.2-4.5 GM/DL Urine Color YELLOW Urine Clarity CLEAR Urine pH 5.5 5-9 Urine Specific [place] >=1.030 1.016-1.022 Urine Protein 1+ H NEGATIVE Urine Glucose (UA) NEGATIVE NEGATIVE Urine Ketones 1+ H NEGATIVE Urine Nitrite NEGATIVE NEGATIVE Urine Bilirubin NEGATIVE NEGATIVE Urine Urobilinogen 1.0 < = 1.0 MG/DL Urine Leukocyte Esterase NEGATIVE NEGATIVE Urine RBC (Auto) 1+ H NEGATIVE Urine RBC 0-2 /HPF Urine WBC NONE /HPF Urine Crystals PRESENT H /LPF Urine Amorphous Sediment RARE GUILHERME URATES H /LPF Urine Bacteria NEGATIVE /HPF Urine Casts PRESENT /LPF Urine Hyaline Casts RARE /LPF Urine Mucus SMALL H /LPF Urine Culture Indicated NO SARS-CoV-2 RNA (RT-PCR) Not Detected Not Detecte My Orders Orders - WILMER DAVID MD Cbc And Automated Diff (04/12/23 23:35) Protime With Inr (04/12/23 23:35) Partial Thromboplastin Time (04/12/23 23:35) Comprehensive Metabolic Panel (04/12/23 23:35) Fibrin Degradation Products (04/12/23 23:35) Troponin I Cassie (04/12/23 23:35) Ua Culture If Indicated (04/12/23 23:35) Chest 1 View, Ap/Pa Only (04/12/23 23:35) Catheter(Urinary) Insert & Ass 03,15 (04/12/23 23:35) Ekg Tracing (04/12/23 23:35) Nothing By Mouth (04/13/23 Breakfast) Accucheck Stat ONCE (04/12/23 23:35) Ed Iv/Invasive Line Start (04/12/23 23:35) Ed Iv/Invasive Line Start (04/12/23 23:35) Vital Signs Stroke Patient Q15M (04/12/23 23:35) Ct Head Wo-R/O Stroke (04/12/23 23:35) O2 (04/12/23 23:35) Monitor-Rhythm Ecg Trace Only (04/12/23 23:35) Dysphagia Screening Tool [id number] (04/12/23 23:35) Post Thrombolytic Adminstratio (04/12/23 23:35) Lipid Panel (04/13/23 06:00) Lidocaine 2% (Urojet) (Lidocaine 2% (Uro (04/12/23 23:45) Covid 19 Inhouse Test (04/12/23 23:35) Manual Differential (04/12/23 23:35) Ct Angio Head/Neck (04/13/23 00:21) Ct Head Perfusion W/ Contrast (04/13/23 00:21) Ns Iv 1000 Ml (Ns Iv 1000 Ml) (04/13/23 00:30) Iohexol Injection (Omnipaque 350 Mg/Ml 1 (04/13/23 01:15) Received Contrast (Hold Metformin- Contr (04/13/23 01:15) Sodium Chloride Flush (Catheter Flush Sy (04/13/23 01:15) Ns (Ivpb) 250 Ml (Sodium Chloride 0.9% 2 (04/13/23 01:15) Diltiazem Injection (Diltiazem Injection (04/13/23 03:00) Diltiazem Drip Pre-Mix (Diltiazem Drip P (04/13/23 03:00) Diltiazem Drip Pre-Mix (Diltiazem Drip P (04/13/23 02:48) Diltiazem Injection (Diltiazem Injection (04/13/23 02:48) Medications Given in ED Current Medications Medications Dose Ordered Sig/Lizz Route Start Time Stop Time Status Last Admin Dose Admin Diltiazem HCl 10 mg ONCE ONCE IVP 04/13/23 03:00 04/13/23 03:02 DC 04/13/23 02:57 10 MG Iohexol 150 ml ONCE ONCE IV 04/13/23 01:15 04/13/23 01:16 DC 04/13/23 01:14 120 ML Sodium Chloride 10 ml NEEDED PRN IV 04/13/23 01:15 04/13/23 01:14 10 ML Sodium Chloride 250 ml ONCE ONCE IV 04/13/23 01:15 04/13/23 01:16 DC 04/13/23 01:14 120 ML Vital Signs/I&O 04/12/23 04/13/23 04/13/23 23:29 02:57 02:58 Temp 36.8 Pulse 112 118 116 Resp 16 B/P (MAP) 102/60 (74) 163/110 163/110 Blood Pressure Mean: 74 Progress Progress Note #1: Time: 01:55 Progress Note Care discussed at [address] Blair, [facility] stroke neurology. She would like to review the CT, CT angiography and perfusion films and discussed with inte rventional radiology as to potential benefit of transfer and intervention. Awaiting callback. Progress Note #2: Time: 03:56 Progress Note Patient seen and evaluated by me. Evaluation today includes history and physical exam, "stroke protocol" to include CBC, coags, D-dimer, comprehensive metabolic panel, urinalysis, serum troponin, EKG, CT head noncontrast, CT angiography of the head and neck and CT perfusion of the head. Pertinent physical exam findings include elderly male, obese, left-sided hemineglect with head turned to the right and rightward gaze palsy. He seems to have a slight right-sided facial droop, heart is tachycardic and sounds are regular, lungs are clear. Abdomen is soft. He has flaccid hemiparesis of the left upper extremity but withdraws to physical stimulus in both legs. Purposeful movement in the right. His speech is slightly slurred. He is oriented. Not hypertensive. Heart rate is in the 1 10-1 15 range on arrival. Afebrile. NIH at presentation approximately 15 Differential diagnosis ischemic stroke versus hemorrhagic stroke, new onset A- fib, sepsis Labs, EKG, single view chest x-ray independently reviewed and interpreted by me. His CBC shows a an elevated white blood cell count at 14.5 with 86% segmented neutrophils, normal hemoglobin, hematocrit and platelets. Comprehensive metabolic panel reveals normal electrolytes with CO2 decreased at 17. BUN and creatinine are elevated at 20 and 1.46. Serum glucose elevated at 193. His coags are normal PTT minimally elevated at 44. D-dimer elevated at 0.63. Urinalysis shows no signs of infection with increased specific gravity greater than 1.030. His COVID test is negative. EKG shows an irregularly irregular rhythm at 113. His chest x-ray does not show any evidence of infiltrate or effusion. CT angiography of the head and neck show occlusion of the distal M2 branch on the right and perfusion demonstrates large penumbra and core. [facility] Dr Blair (neurology) reviewed with Interventionalist and patient is not a candidate for intervention. Neurologist rec admission for completion of stroke workup and management. Patient is getting a little more agitated at this time, he wants to get out of bed and "go home". I have talked to him about his stroke. I'm hesitant to sedate him due to neuro issues. Trying to get ahold of his son to discuss DNR status. Dr Garcia (hospitalist) stated she would accept him if son agreed to DNR. All numbers for son have been tried - no success. Will attempt to call [facility] to see if they can assist with finding son who is listed as meedical DPOA Progress Note #3: Time: 05:09 Progress Note Multiple phone calls to try and find the patient's son who is listed on assisted records as DPOA. Finally got a hold of the son who stated that he is not in fact the patient's DPOA and would like to have nothing to do with him and to please pull him off of his records. The other constitution party listed on assisted r ecords as a contact to his . I called and spoke to Dr. Garcia again who accepts the patient for inpatient admission to the ICU. Initial ECG Impression Date: Apr 13, 2023 Initial ECG Impression Time: 23:40 Initial ECG Rate: 113 Initial ECG Rhythm: A Fib/Flutter Initial ECG Impression: Atrial Fibrillation w/RVR Diagnostic Imaging Diagonstic Imaging: Xray Comments Single view chest x-ray independently reviewed and interpreted by me, poor inspiratory effort, fluid right major fissure. 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 Time includes initial evaluation, management of A-fib RVR with IV Cardizem bolus and drip. Review and interpretation of laboratory studies, review of imaging, multiple discussions with radiology, discussions with stroke neurology, discussion with admitting provider. Review and interpretation of old medical records, serial reevaluations. Departure Communication (Admissions) Time/Spoke to Admitting Phy: 05:[address] Garcia (on for Hospitalist) - accepts IP to ICU Time/Spoke to Consulting Phy: 05:11 Discussed with eICU Impression Primary Impression: Acute ischemic right MCA stroke Additional Impression: Atrial fibrillation with rapid ventricular response Disposition: ADMITTED INPATIENT Condition: Critical Admissions Decision to Admit Reason: Admit from ER (General) Decision to Admit/Date: Apr 13, 2023 Time/Decision to Admit Time: 05:10 Departure-Patient Inst. Referrals: NO,LOCAL PHYSICIAN (PCP/Family) Primary Care Physician Copy Copies To 1: LILIA CHAPA KATHRYN M MD Apr 12, 2023 23:43
[2023-04-12] MEDS ORDERED: LIDOCAINE UROJET 2% GEL 10 ML PKG TOP ONE (23:45)
[2023-04-12 23:48] LABS: BASOPHILS # (AUTO) 0.1 10^3/uL (0.0-0.1); BASOPHILS % (AUTO) 0 % (0-10); EOSINOPHILS # (AUTO) 0.1 10^3/uL (0.0-0.3); EOSINOPHILS % (AUTO) 1 % (0-10); HEMATOCRIT 48 % (40-54); HEMOGLOBIN 15.4 g/dL (13.3-17.7); LYMPHOCYTES % (AUTO) 7 % (12-44); MEAN CORPUSCULAR HEMOGLOBIN 29 pg (25-34); MEAN CORPUSCULAR HGB CONC 32 g/dL (32-36); MEAN CORPUSCULAR VOLUME 92 fL (80-99); MEAN PLATELET VOLUME 12.8 fL (9.0-12.2); MONOCYTES # (AUTO) 0.8 10^3/uL (0.0-1.0); MONOCYTES % (AUTO) 5 % (0-12); NEUTROPHILS # (AUTO) 12.5 10^3/uL (1.8-7.8); NEUTROPHILS % (AUTO) 86 % (42-75); PLATELET COUNT 231 10^3/uL (130-400); WHITE BLOOD COUNT 14.5 10^3/uL (4.3-11.0)
[2023-04-12 23:56] LABS: PROTHROMBIN TIME PATIENT 13.8 SEC (12.2-14.7)
[2023-04-12 23:57] LABS: ALBUMIN 4.1 GM/DL (3.2-4.5); CHLORIDE 104 MMOL/L (98-107); SODIUM 136 MMOL/L (135-145)
[2023-04-12 23:58] LABS: CALCIUM 9.6 MG/DL (8.5-10.1)
[2023-04-12 23:59] LABS: GLUCOSE 193 MG/DL (70-105); TOTAL PROTEIN 7.3 GM/DL (6.4-8.2)
[2023-04-13] LABS: CARBON DIOXIDE 17 MMOL/L (21-32); FIBRIN DEGRADATION PRODUCTS 0.63 UG/ML (0.00-0.49)
[2023-04-13 00:01] LABS: BAND NEUTROPHILS 10 %; BILIRUBIN,TOTAL 0.7 MG/DL (0.1-1.0); LYMPHOCYTES % (MANUAL) 4 %; MONOCYTES % (MANUAL) 4 %; NEUTROPHILS % (MANUAL) 79 %; REACTIVE LYMPHOCYTES 3 %
[2023-04-13 00:02] LABS: BURR CELLS SLIGHT
[2023-04-13 00:03] LABS: ALKALINE PHOSPHATASE 87 U/L (40-136); CREATININE SERUM 1.46 MG/DL (0.60-1.30); GFR ESTIMATED 49
[2023-04-13 00:04] LABS: BUN/CREATININE RATIO 14
[2023-04-13 00:06] LABS: ALANINE AMINOTRANSFERASE 24 U/L (0-55)
[2023-04-13 00:23] LABS: AMORPHOUS SEDIMENT,UR RARE AMOR URATES /LPF; BACTERIA,URINE NEGATIVE /HPF; BILIRUBIN,URINE NEGATIVE (NEGATIVE); CLARITY,URINE CLEAR; COLOR,URINE YELLOW; GLUCOSE, URINE (UA) NEGATIVE (NEGATIVE); HYALINE CASTS, URINE RARE /LPF; KETONES,URINE 1+ (NEGATIVE); LEUKOCYTE ESTERASE ,URINE NEGATIVE (NEGATIVE); NITRITE,URINE NEGATIVE (NEGATIVE); PH,URINE 5.5 (5-9); PROTEIN,URINE 1+ (NEGATIVE); RBC,URINE 0-2 /HPF
[2023-04-13] MEDS: NS IV 1000 ML 1,000 ML IV SCH ×7 (00:35→19:47)
[2023-04-13] MEDS ORDERED: HOLD METFORMIN - RECEIVED CONTRAST 20 ML VIAL IV SCH (01:15)
[2023-04-13] MEDS ORDERED: IOHEXOL 350 MG/ML 150 ML (OMNIPAQUE 350) VIAL IV ONE (01:15)
[2023-04-13] MEDS ORDERED: CATHETER FLUSH 10 ML SYR IV PRN (01:15)
[2023-04-13] MEDS ORDERED: NS 250 ML (IVPB) BAG IV ONE (01:15)
[2023-04-13] MEDS ORDERED: dilTIAZem INJ 25 MG/5 ML VIAL ONE (02:48)
[2023-04-13] MEDS ORDERED: dilTIAZem DRIP PRE-MIX 125 ML IV ONE (02:48)
[2023-04-13] MEDS ORDERED: dilTIAZem INJ 25 MG/5 ML VIAL IVP ONE (03:00)
[2023-04-13] MEDS ORDERED: dilTIAZem DRIP PRE-MIX 125 ML IV SCH (03:00)
--- NOTE | 2023-04-13 06:08 | Diagnostic Imaging Report ---
EXAMINATION: Chest 1 view HISTORY: left UE flaccid paralysis, rightward gaze COMPARISON: 03/15/2020 FINDINGS: Heart size and pulmonary vasculature are normal. There are low lung volumes. Mild interstitial opacities in the lung bases. No pleural effusion or pneumothorax. The osseous structures are intact. IMPRESSION: 1. Low lung volumes with mild bibasilar interstitial opacities. This could be seen with atelectasis, edema, or pneumonia. Dictated by: Dictated on workstation # [id number]
--- NOTE | 2023-04-13 06:45 | Diagnostic Imaging Report ---
EXAMINATION: CT head without contrast. TECHNIQUE: Multiple contiguous axial images were obtained through the brain without the use of intravenous contrast. All CT scans use one or more of the following dose optimizing techniques: automated exposure control, MA and/or KvP adjustment based on patient size and exam type or iterative reconstruction. HISTORY: LUE flaccid paralysis; rightward gaze COMPARISON: 02/07/2015 FINDINGS: Mild diffuse cerebral volume loss with proportional enlargement of the ventricles and sulci. Mild hypodensities throughout the supratentorial white matter of both cerebral hemispheres. Chronic appearing lacunar infarcts within the basal ganglia. There is mild hyperdensity seen within the superior left frontoparietal lobe along the subarachnoid space. No abnormal extra-axial fluid collection. Calcification of the intracranial ICAs. No hyperdense vessel. There is left lateral frontal scalp soft tissue swelling and a small hematoma. The calvarium is otherwise intact. The mastoid air cells are clear. The visualized paranasal sinuses are clear. The orbits are normal. IMPRESSION: 1. Mild hyperdensity along the left superior frontoparietal subarachnoid space which could be seen with subarachnoid hemorrhage. 2. Chronic microangiopathy and volume loss. Chronic bilateral basal ganglial lacunar infarcts. 3. Agree with preliminary interpretation. Dictated by: Dictated on workstation # [id number]
--- NOTE | 2023-04-13 07:14 | Diagnostic Imaging Report ---
EXAMINATION: CT angiography head and neck with and without contrast. TECHNIQUE: After intravenous administration of contrast, thin section axial CT angiography of the head and neck was performed to screen for LVO, and multiple reformats including MIP reconstructions. Postcontrast CT of the head was also obtained. All CT scans use one or more of the following dose optimizing techniques: automated exposure control, MA and/or KvP adjustment based on a patient size and exam type, or iterative reconstruction. CT angiogram was post-processed using RAPID LVO detection to include quantitative measurements of cerebral blood flow and automated results notification to the stroke and/or neurointerventional team. HISTORY: Left-sided flaccid paralysis and rightward gaze. COMPARISON: None available. FINDINGS: HEAD: Anterior circulation: There are vascular calcifications within the cavernous portions of the ICAs with approximately 90% stenosis of the right greater than left internal carotid arteries. There is an occlusion of the distal M2 branch of the right MCA along the sylvian fissure (series 2 image 444). The right and left anterior cerebral arteries and the left middle cerebral artery are otherwise patent. There is mild aneurysmal dilatation of the distal right internal carotid artery prior to the bifurcation with dilation up to 0.46 cm. Posterior circulation: There are a few areas of focal narrowing or stenosis seen within the basilar artery. There may be mild aneurysmal dilatation of the basilar artery measuring up to 0.3 cm. Please see same day noncontrast CT head for discussion of other nonvascular findings. Increasing mild hyperdense appearance along the subarachnoid space of the superior bilateral frontoparietal lobes. There is no suspicious enhancement. There may be increasing loss of whipple-white matter differentiation along the posterior right frontal and temporal lobes. NECK: Arch: Conventional branching of the aortic arch. The visualized subclavian arteries are patent without stenosis. Right: There is plaque within the distal common carotid artery extending into the internal and external carotid arteries. The estimated internal carotid stenosis by NASCET criteria is 80%. The right vertebral artery is patent to the level of the vertebrobasilar junction. Left: There is plaque within the distal common carotid artery extending into the internal and external carotid arteries. There is significant stenosis of the external iliac artery. The estimated internal carotid stenosis by NASCET criteria is 50%. The left vertebral artery is patent to the level of the vertebrobasilar junction. Other: The visualized thyroid gland is unremarkable. The cervical soft tissues are unremarkable. There is atelectasis within the lung apices. Degenerative changes of the cervical spine. IMPRESSION: 1. A distal right M2 occlusion along the sylvian fissure. 2. 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 3. Severe stenosis of the right internal carotid artery and moderate stenosis of the left internal carotid artery within the neck. 4. Severe stenosis of the bilateral intracranial ICAs. 5. Multifocal stenosis of the basilar artery. 6. There may be new loss of whipple-white matter differentiation seen along the posterior right frontoparietal lobe. 7. Increasing hyperdense appearance along the bilateral superior frontoparietal lobe subarachnoid space. It is uncertain whether this represents true subarachnoid hemorrhage versus artifact. 8. Agree with preliminary interpretation. Dictated by: Dictated on workstation # [id number]
--- NOTE | 2023-04-13 07:22 | Diagnostic Imaging Report ---
INDICATION: Left upper extremity flaccid paralysis and rightward gaze. COMPARISON: Noncontrast CT head and CTA from earlier same day. TECHNIQUE: Post contrast CT head perfusion scan was performed. All CT scans use one or more of the following dose optimizing techniques: automated exposure control, MA and/or KvP adjustment based on patient size and exam type or iterative reconstruction. FINDINGS: Total CBF less than 30% volume: 52 mL. Total Tmax greater than 6 seconds volume: 103 mL. Total mismatch difference: 51 mL. Total mismatch ratio: 2.0. Hypoperfusion index: 0.5. Source images were also created and reviewed and show a prominent defect on the Tmax, cerebral blood flow, and cerebral volume images within the right MCA territory along the posterior right frontoparietal lobe. IMPRESSION: 1. Findings compatible with right MCA ischemia and infarct. There is a 51 mL Penumbra with a 52 mL core infarct. 2. Agree with preliminary interpretation. Dictated by: Dictated on workstation # [id number]
[2023-04-13 07:31] LABS: TRIGLYCERIDES 63 MG/DL (<150); VLDL CHOLESTEROL 13 MG/DL (5-40)
[2023-04-13 07:36] LABS: CHOLESTEROL 116 MG/DL (< 200); HDL CHOLESTEROL 44 MG/DL (40-60)
[2023-04-13] MEDS ORDERED: LACTULOSE SYRUP 10GM/15ML 30ML UDC PO PRN (09:00)
[2023-04-13] MEDS ORDERED: HYDROmorphone INJECTION 2 MG/ML VIAL IV PRN (09:00)
[2023-04-13] MEDS ORDERED: MILK OF MAGNESIA 400 MG/5 ML 30 ML UDC PO PRN (09:00)
[2023-04-13] MEDS ORDERED: ANTACID SUSPENSION 30 ML UDC PO PRN (09:00)
[2023-04-13] MEDS ORDERED: CALCIUM CARBONATE 500 MG CHEW TABLET PO PRN (09:00)
[2023-04-13] MEDS: SENNOSIDES 8.6 MG TABLET PO SCH ×2 (09:00→19:50)
[2023-04-13] MEDS ORDERED: DexMEDEtomidine 1,000mcg/250ml 250 ML IV SCH (09:00)
[2023-04-13] MEDS ORDERED: NS IV 500 ML 500 ML IV PRN (09:00)
[2023-04-13] MEDS ORDERED: MELATONIN 3 MG TABLET PO PRN (09:00)
[2023-04-13] MEDS ORDERED: ONDANSETRON 4 MG ORAL DISSOLVE TABLET PO PRN (09:00)
[2023-04-13] MEDS ORDERED: diphenhydrAMINE INJ 50 MG/ML VIAL IVP PRN (09:00)
[2023-04-13] MEDS: dilTIAZem DRIP PRE-MIX 125 ML IV SCH (09:00)
[2023-04-13] MEDS ORDERED: oxyCODONE IMMEDIATE RELEASE 5 MG TABLET PO PRN (09:00)
[2023-04-13] MEDS: DOCUSATE SODIUM 100 MG CAPSULE PO SCH ×2 (09:00→19:50)
[2023-04-13] MEDS ORDERED: BISACODYL 10 MG SUPPOSITORY PR PRN (09:00)
[2023-04-13] MEDS ORDERED: ACETAMINOPHEN 325 MG TABLET PO PRN (09:00)
[2023-04-13] MEDS ORDERED: ONDANSETRON INJECTION 4 MG/2 ML (SDV) IV PRN (09:00)
[2023-04-13] MEDS ORDERED: diphenhydrAMINE 25 MG TABLET PO PRN (09:00)
[2023-04-13] MEDS ORDERED: LORazepam 0.5 MG TABLET PO PRN (09:00)
[2023-04-13 09:07] VITALS: BP 167/88
--- NOTE | 2023-04-13 09:34 | Speech Therapy Progress Note ---
Therapy Progress Note Speech pathology received the consultation for a clinical bedside swallowing evaluation and the chart was reviewed. The clinician attempted the evaluation at 0920, at this time the patient is undergoing a procedure. The ST will re-attempt the evaluation as able and appropriate. JASON JARAMILLO Apr 13, 2023 09:34
--- NOTE | 2023-04-13 09:35 | History & Physical ---
DEA DIAZ 04/13/23 0935: History of Present Illness History of Present Illness Reason for visit/HPI 77 [facility] male jail resident with a PMH of HTN and HLD who presented to the ED yesterday around 11:30 PM after being found on the floor of his routine during routine rounds. Per nursing staff he had not been acting like himself" all day and is typically an alert and ambulatory patient.He was found to have flaccid paralysis of the left upper extremity, rightward head turn and right gaze, and obvious contusion of the left frontal temporal scalp. Non-contrast CT was significant for mild hyperdensity of subarachoid space possibly reflective of SAH. CTA of the head and neck showed occlusion of the distal M1 branch on the right and large penumbra and core, severe stenosis of the right ICA, moderate stenosis of the left ICA, severe stenosis of the bilteral intracranial ICAs. ; [facility] neurology was consulted and did not deem patient a candidate for intervention. EKG showed irregularly irregular rhythm, D-dimer was elevated at .63, coagulation panel showed minimally elevated PTT (otherwise normal) and Cr was elevated at 1.46. CXR and UA without evidence of infection or other abnormalities. Stroke protcol was initiated and the patient was admitted. He given diltiazem 10mg and 25mg IV x 1, then started on a drip. Date of Admission Apr 13, 2023 at 08:27 Date Seen by a Provider: Apr 13, 2023 I consulted on this patient on 04/13/23 09:34 Attending Physician No,Local Physician Admitting Physician Admitting Physician: Tania Weiner DO Attending Physician: Tania Weiner DO Consult Allergies and Home Medications Allergies Coded Allergies: No Known Drug Allergies (Unverified , 03/14/20) Patient Home Medication List Amlodipine Besylate (Amlodipine Besylate) 5 Mg Tablet, 5 MG PO DAILY, (Reported) Entered as Reported by: CATRACHITO FUNK on 03/15/20 1332 Last Action: Reviewed Atorvastatin Calcium (Atorvastatin Calcium) 40 Mg Tablet, 40 MG PO HS, (Reported) Entered as Reported by: CATRACHITO FUNK on 03/15/20 1332 Last Action: Reviewed Clopidogrel Bisulfate (Clopidogrel) 75 Mg Tablet, 75 MG PO DAILY, (Reported) Entered as Reported by: CATRACHITO FUNK on 04/13/23 1354 Last Action: Reviewed Lisinopril (Lisinopril) 5 Mg Tablet, 5 MG PO DAILY, (Reported) Entered as Reported by: CATRACHITO FUNK on 03/15/201331 Last Action: Reviewed Discontinued Medications Amoxicillin/Potassium Clav (Amox Tr-K Clv 875-125 mg Tab) 1 Each Tablet, 875 MG PO BID WITH MEALS Discontinued Reason: No Longer Taking Prescribed by: ANDREI BRAMBILA on 03/22/20 1542 Last Action: Discontinued Clopidogrel Bisulfate (Plavix) 75 Mg Tablet, 75 MG PO DAILY, (Reported) Discontinued Reason: No Longer Taking Entered as Reported by: CATRACHITO FUNK on 03/15/201331 Last Action: Discontinued Hydrochlorothiazide (Hydrochlorothiazide) 12.5 Mg Tablet, 12.5 MG PO DAILY, (Reported) Discontinued Reason: No Longer Taking Entered as Reported by: CATRACHITO FUNK on 03/15/201331 Last Action: Discontinued Past Bdgvtgu-Zujhie-Clsxzu Hx Patient Social History Tobacco Use?: No Use of E-Cig and/or Vaping Rene: Never a User Alcohol Use?: No Pt feels they are or have been: Unable to obtain Immunizations Up To Date Tetanus Booster (TDap): Unknown Current Status Advance Directives: Unable to obtain Communicates: Verbally Primary Language: Kiswahili Preferred Spoken Language: Kiswahili Is interpretation needed?: No Sensory deficits: Vision impairment, Hearing impairment Implanted or Applied Medical D: None Past Medical History Currently Using CPAP: No Currently Using BIPAP: No Stroke Chronic Diarrhea Arthritis Loss of Vision: Bilateral Hearing Impairment: Hard of Hearing Depression Family Medical History Completed stroke G8 BROTHER (HX OF 2 CVA) Hypertension G8 BROTHER G8 BROTHER No Pertinent Family Hx Review of Systems ROS-Unable to Obtain: ROS difficult to obtain due to aphasia. Physical Exam Vital Signs Vital Signs - First Documented 04/12/23 04/13/23 23:29 08:35 Temp 36.8 Pulse 112 Resp 16 B/P (MAP) 102/60 (74) Pulse Ox 97 O2 Delivery Room Air Capillary Refill : Less Than 3 Seconds Height, Weight, BMI Height: 5'8.00" Weight: 213lbs. oz. 96.575843uy; 35.03 BMI Method: General Appearance: No Apparent Distress Respiratory: Lungs Clear Cardiovascular: Irregularly Irregular Gastrointestinal: Normal Bowel Sounds Neurologic/Psychiatric: Alert; No Oriented x3; Aphasia, Motor Weakness (Motor strength 0-1 in the left upper and lower extremity ), Other (right deviation of the head) Skin: Normal Color, Warm/Dry Assessment/Plan Admission Diagnosis Acute ischemic stroke of the right MCA Left-sided flaccid paralysis Aphasia - Possibly with hemorrhagic conversion. Etiology likely embolic 2/2 carotid stenosis or atrial fibrillation. - 04/12 CT: "mild hyperdensity of subarachnoid space possibly reflective of subaracnoid hemorrhage" - 04/12 CTA: CTA: Distal right M2 occlusion. Severe stenosis of R ICA, moderate stenosis of L ICA. Severe stenosis of bilateral intracranial ICAs. Increasing hyperdense appearance along the subarachnoid space. "Uncertain whether this represents true SAH versus infarct". - [facility] neurology consulted 04/12 and deemed patient not a candidate for intervention Plan: - MRI, bilateral US and Echocardiogram pending - Holding aspirin and DAPT until MRI rules out hemorrhage - Atorvostatin 80 mg daily - PT, OT and speech therapy - Swallow study Stenosis of the right ICA, severe Stenosis of the left ICA, moderate - Bilateral carotid US pending - Outpatient stenting Atrial fibrillation - EKG today NSR with occasional ventricular premature complexes - Cardiology consulted - Continue diltiazem 5mg IV Acute kidney injury - resolved - Baseline of 1 - 1.29 in 2020 Clinical Quality Measures DVT/VTE Risk/Contraindication: Contraindications-Pharm: Other *list below* Other: brain bleed Stroke: Date of last known well: Apr 12, 2023 Symptoms onset unknown: Yes TANIA WEINER DO 04/14/23 0449: History of Present Illness History of Present Illness Reason for visit/HPI Chief complaint: CVA HPI: This is a 77-year-old male jail patient at [facility] who has a past medical history of dementia and severe debility who presented to the ER found on the floor for an undetermined amount of time and was found to have left side of body. He is also having rightward gaze. Stroke neurologist was contacted per protocol and upon evaluation of a possible subarachnoid hemorrhage sustained in a fall and overall clinical data he was not a tPA candidate and the bilateral carotid stenosis was not a indication for transfer to higher level of care for vascular surgery due to the stroke residual. He was found to have new onset A-fib. Time Seen by a Provider: 11:00 Allergies and Home Medications Allergies Coded Allergies: No Known Drug Allergies (Unverified , 03/14/20) Patient Home Medication List Home Medication List Reviewed: Yes Amlodipine Besylate (Amlodipine Besylate) 5 Mg Tablet, 5 MG PO DAILY, (Reported) Entered as Reported by: CATRACHITO FUNK on 03/15/201331 Last Action: Reviewed Atorvastatin Calcium (Atorvastatin Calcium) 40 Mg Tablet, 40 MG PO HS, (Reported) Entered as Reported by: CATRACHITO FUNK on 03/15/201331 Last Action: Reviewed Clopidogrel Bisulfate (Clopidogrel) 75 Mg Tablet, 75 MG PO DAILY, (Reported) Entered as Reported by: CATRACHITO FUNK on 04/13/23 135 Last Action: Reviewed Lisinopril (Lisinopril) 5 Mg Tablet, 5 MG PO DAILY, (Reported) Entered as Reported by: CATRACHITO FUNK on 03/15/201331 Last Action: Reviewed Discontinued Medications Amoxicillin/Potassium Clav (Amox Tr-K Clv 875-125 mg Tab) 1 Each Tablet, 875 MG PO BID WITH MEALS Discontinued Reason: No Longer Taking Prescribed by: ANDREI BRAMBILA on 03/22/20 1542 Last Action: Discontinued Clopidogrel Bisulfate (Plavix) 75 Mg Tablet, 75 MG PO DAILY, (Reported) Discontinued Reason: No Longer Taking Entered as Reported by: CATRACHITO FUNK on 03/15/201331 Last Action: Discontinued Hydrochlorothiazide (Hydrochlorothiazide) 12.5 Mg Tablet, 12.5 MG PO DAILY, (Reported) Discontinued Reason: No Longer Taking Entered as Reported by: CATRACHITO FUNK on 03/15/201331 Last Action: Discontinued Past Olkdkqk-Xypuzi-Qscdcw Hx Patient Social History Marrital Status: single Employed/Student: retired Smoking Status: Former Smoker Past Medical History High Cholesterol, Hypertension Family Medical History Completed stroke G8 BROTHER (HX OF 2 CVA) Hypertension G8 BROTHER G8 BROTHER Review of Systems Constitutional: see HPI Physical Exam General Appearance: No Apparent Distress, WD/WN, Chronically ill Respiratory: Lungs Clear, Normal Breath Sounds Cardiovascular: Regular Rate, Rhythm Neurologic/Psychiatric: Alert, Aphasia, Disoriented, Motor Weakness (Motor strength 0-1 in the left upper and lower extremity ), Other (right deviation of the head) Assessment/Plan Assessment and Plan Assessment: Catastrophic CVA with left-sided placidity rightward gaze deviation Severe carotid stenosis new onset A-fib Chronic debility dementia Hypertension Not a tPA candidate or urgent carotid endarterectomy or stent placement per [facility] neurologist Plan: ICU Cardiology consult Cardizem drip MRI to rule out subarachnoid hemorrhage and started on oral anticoagulation and aspirin Begin guardianship due to no family member contacted and the patient willing to serve as decision-maker Admission Diagnosis Admission Status: Inpatient Order (span 2 midnights) Reason for Inpatient Admission: Catastrophic CVA Supervisory-Addendum Brief Verification & Attestation Participated in pt care: history, MDM, physical Personally performed: exam, history, MDM, supervision of care Care discussed with: Medical Student Procedures: n/a Results interpretation: Verified all documentation Verification and Attestation of Medical Student E/M Service A medical student performed and documented this service in my presence. I reviewed and verified all information documented by the medical student and made modifications to such information, when appropriate. I personally performed the physical exam and medical decision making. Tania Weiner Apr 14, 2023,04:49 DEA DIAZ Apr 13, 2023 09:35 TANIA WEINER DO Apr 14, 2023 04:49
[2023-04-13] MEDS: inSUlin ASPART 1 UNIT/0.01 ML (PER UNIT) SC SCH ×3 (10:11→21:15)
--- NOTE | 2023-04-13 10:53 | Diagnostic Imaging Report ---
PROCEDURE: US carotid duplex, bilateral. TECHNIQUE: Multiple real-time grayscale images were obtained over the carotid arteries in various projections, bilaterally. Additional spectral analysis and color Doppler duplex images were also obtained. INDICATION: Acute ischemic stroke, left-sided flaccid paralysis, rightward gaze. Speech difficulty, confusion, memory loss. CORRELATION STUDY: CTA head and neck same day FINDINGS: Color images demonstrate rather extensive atherosclerotic plaque throughout the common carotid arteries, carotid bulbs as well as internal and external carotid arteries. On the right, there is a markedly elevated velocity at the mid aspect of the internal carotid artery at 560 cm/s with an ICA/CCA ratio of 6.58. This suggests severe stenosis. On the left, there is elevated velocity in the proximal aspect at 205 cm/s with an ICA/CCA ratio of 2.03 suggesting 50-69% stenosis. External carotid arteries are patent but also demonstrates significantly increased velocities, left greater than right, consistent with likely severe stenosis. There is normal antegrade directional flow of the bilateral vertebral arteries. DOPPLER (peak systolic velocity M/S Right Left CCA .85 1.01 ICA Proximal 1.17 2.05 ICA Mid 5.6 1.4 ICA Distal 1.4 .72 RATIO 6.58 2.03 ECA 3.72 5.62 VERT .4 .6 IMPRESSION: 1. Rather extensive atherosclerotic vascular disease of the carotid arteries. 2. Findings suggest a severe stenosis of the right internal carotid artery of greater than 99%. 3. Findings suggest approximately 50-69% stenosis of the left internal carotid artery. 4. Findings consistent with severe stenosis of bilateral external carotid arteries. Parameters based on the consensus panel Navarro-Scale and Doppler ultrasound criteria published March 2003, Radiology, Volume 229. Dictated by: Dictated on workstation # [id number]
[2023-04-13 11:53] LABS: BASOPHILS % (AUTO) 0 % (0-10); EOSINOPHILS # (AUTO) 9.6 10^3/uL (0.0-0.3); EOSINOPHILS % (AUTO) 56 % (0-10); HEMATOCRIT 44 % (40-54); HEMOGLOBIN 15.1 g/dL (13.3-17.7); LYMPHOCYTES # (AUTO) 0.5 10^3/uL (1.0-4.0); LYMPHOCYTES % (AUTO) 3 % (12-44); MEAN CORPUSCULAR HEMOGLOBIN 30 pg (25-34); MEAN CORPUSCULAR HGB CONC 34 g/dL (32-36); MEAN CORPUSCULAR VOLUME 88 fL (80-99); MEAN PLATELET VOLUME 11.7 fL (9.0-12.2); MONOCYTES # (AUTO) 0.8 10^3/uL (0.0-1.0); MONOCYTES % (AUTO) 5 % (0-12); NEUTROPHILS # (AUTO) 6.1 10^3/uL (1.8-7.8); NEUTROPHILS % (AUTO) 36 % (42-75); PLATELET COUNT 224 10^3/uL (130-400)
[2023-04-13 12:08] LABS: ALBUMIN 3.9 GM/DL (3.2-4.5); POTASSIUM 5.3 MMOL/L (3.6-5.0)
--- NOTE | 2023-04-13 12:08 | Diagnostic Imaging Report ---
CLINICAL INDICATION: Patient with left-sided flaccid paralysis and rightward gaze. EXAM: MRI of the brain performed without IV contrast. Sequences include axial DWI, ADC map, axial T2 propeller, and axial FLAIR. Patient could not tolerate sedation and patient demonstrated significant motion and exam was unable to be completed. COMPARISON: CT angiogram of head/neck dated 04/13/2023. FINDINGS: There is significant motion artifact limiting evaluation of anatomical detail. There is a moderate-sized area of diffusion restriction involving the posterior right frontal lobe, parietal lobe, and right insular ribbon. There is also small area of diffusion restriction involving the right occipito-parietal region. There is increased T2 signal associated with these areas. There is no lobar intraparenchymal hemorrhage. There is no brain herniation or midline shift. There are chronic infarcts involving the bilateral periventricular internal capsule/elizalde radiata regions. There is diffuse chronic small vessel ischemic disease and leukoaraiosis. There is diffuse brain parenchymal volume loss. There is no hydrocephalus. Extracranial soft tissues, skull, and orbits show no significant abnormality. There is mild mucosal thickening involving the frontal sinus, ethmoid sinus, and sphenoid sinus. Mastoid air cells are clear. IMPRESSION: 1: There is significant motion artifact limiting evaluation of anatomical detail. 2: There is moderate-sized area of acute cerebral infarct involving the posterior right cerebral hemisphere which predominantly involving the right MCA distribution. There is no brain herniation or midline shift. There is no intraparenchymal hemorrhage. 3: There is diffuse brain parenchymal volume loss, chronic small vessel ischemic disease and leukoaraiosis. Dictated by: Dictated on workstation # [id number]
[2023-04-13 12:09] LABS: CALCIUM 8.8 MG/DL (8.5-10.1)
[2023-04-13 12:11] LABS: TOTAL PROTEIN 7.8 GM/DL (6.4-8.2)
[2023-04-13 12:12] LABS: BILIRUBIN,TOTAL 0.8 MG/DL (0.1-1.0)
[2023-04-13 12:14] LABS: CREATININE SERUM 1.19 MG/DL (0.60-1.30)
--- NOTE | 2023-04-13 12:40 | Tele-ICU Progress Note ---
Subjective Date Seen by a Provider: Apr 13, 2023 Time Seen by a Provider: 10:35 Subjective/Events-last exam (Tele-ICU Physician , Progress Note ) Service provided via interactive audio and video telecommunications [facility] s yassinete to a patient admitted to ICU bed in [facility]. Patient is seen today due to persistent need of ICU care Available chart/ vitals / labs / Images reviewed Video assessment done using teleICU camera, rest of exam as per RN He is a 77-year-old male resident of a [facility] with past medical history of hypertension and hyperlipidemia who was found to be on the floor around 11:30 PM last night and he was brought to the emergency room and somewhat confused state. He is found to have a flaccid paralysis of the left upper extremity. Stroke work-up done including CT of the head and CTA of the head and neck and found to have changes suggestive of subarachnoid hemorrhage, occlusion of the M1 branch on the right large penumbra and core with a severe stenosis of the right ICA and moderate stenosis of the left ICA. [facility] neurology was consulted and they felt he is not a candidate for intervention and advised admission for stroke work-up. He is also found to be in atrial fibrillation with rapid ventricular rate. He is admitted to the ICU for further work-up and management. He is started on diltiazem drip currently at 5 mg/h. He is heart rate is fairly controlled. Impression 1. Acute CVA not a candidate for intervention 2. Bilateral carotid stenosis right more than the left. 3. New onset atrial fibrillation with rapid ventricular rate 4. Altered mental status probably due to stroke 5. History of hyperlipidemia. Recommendations 1. We will get an echocardiogram and carotid ultrasound 2. Management of atrial fibrillation per cardiology 3. Physical therapy and Occupational Therapy 4. DVT prophylaxis 5. LDL goal less than 70. 6. Speech therapy. 7. Neurology and cardiology consultation. 8. Aspirin and Plavix per neurology recommendations. Coordination of care with primary care physician and bedside consultants. Today have reviewed the case with CLEAN UP SUPERVISOR as well as in MDR. I am remotely monitoring this patient from Tele icu station in [place]. I am unable to do the bedside exam, and history/physical and pertinent information is taken from other notes in the computer and bedside staff. Certain portions of this document may have been dictated utilizing voice recognition technology such as [employer]. Inherent to this technology, typographical and grammatical errors may exist. As much as I am diligent to identify and correct to these mistakes, some errors may remain in the document. Critical care time devoted to this patient today is approximately is 25 minutes.-- Sepsis Event Evaluation Height, Weight, BMI Height: 5'8.00" Weight: 213lbs. oz. 96.697821yc; 35.03 BMI Method: Exam Exam Patient acknowledged, consented, and participated in this virtual visit which was conducted using real time audio/video Vital Signs Date Time Temp Pulse Resp B/P (MAP) Pulse Ox O2 Delivery O2 Flow Rate FiO2 04/13/23 12:00 89 22 159/84 (109) 96 Room Air 04/13/23 11:00 102 20 170/86 (114) 97 Room Air 04/13/23 10:00 104 18 149/71 (97) 95 Room Air 04/13/23 09:07 37.5 114 97 04/13/23 09:00 108 19 156/89 (111) 95 Room Air 04/13/23 09:00 109 166/86 04/13/23 08:45 106 04/13/23 08:45 106 20 142/85 (104) 93 Room Air 04/13/23 08:35 37.5 114 16 167/88 97 Room Air 04/13/23 02:58 116 163/110 04/13/23 02:57 118 163/110 04/12/23 23:29 36.8 112 16 102/60 (74) I & O 04/13/23 06:59 Intake Total 1000 ml Balance 1000 ml Height & Weight Height: 5'8.00" Weight: 213lbs. oz. 96.408813vj; 35.03 BMI Method: General Appearance: Chronically ill Capillary Refill: Less Than 3 Seconds Gastrointestinal: normal bowel sounds, non tender, soft Results Lab Laboratory Tests 04/12/23 23:35 04/13/23 09:45 Assessment/Plan Assessment/Plan as above Critical Care: Critically Ill Patient Time spent with patient (mins): 25 CARL GRAVES MD Apr 13, 2023 12:40
--- NOTE | 2023-04-13 12:46 | ST Dysphagia Evaluation ---
Speech Evaluation-General Medical Diagnosis Acute Ischemic Right MCA Stroke Onset Date: Apr 12, 2023 Therapy Diagnosis Therapy Diagnosis: Impaired Oropharyngeal Swallow Function Precautions Precautions: Fall, Pressure Ulcer, Aspiration Precautions/Isolations: Aspiration, Fall Prevention, Pressure Ulcer Referral Referring Physician: Dr. Garcia Reason for Referral: Evaluation/Treatment Medical History Pertinent Medical History: CVA Current History The patient is a 77-year-old male (resides in a local correction), who presents to the emergency department with stroke-like symptoms. The patient is found to have a right gaze and flaccid paralysis of the left upper extremity. Brain MRI (04/13/23) revealed "1: There is significant motion artifact limiting evaluation of anatomical detail. 2: There is moderate-sized area of acute cerebral infarct involving the posterior right cerebral hemisphere which predominantly involving the right MCA distribution. There is no brain herniation or midline shift. There is no intraparenchymal hemorrhage. 3: There is diffuse brain parenchymal volume loss, chronic small vessel ischemic disease and leukoaraiosis." Reviewed History: Yes Social History Home: Skilled Nursing Speech PLF/Current-Dysphagia Prior Level of Function The patient's prior level of function is unknown to this clinician. The patient was residing at a nursing facility prior to admission. Subjective The patient was lying in bed, eyes opened with a fixed right gaze, upon entrance to the room by the clinician. With maximum verbal prompting and positioning on the right side of the bed, the patient responded to the clinician with an unintelligible greeting. Regardless of multiple attempts to discuss and explain the consultation, the patient stated, "I don't know why you would do that." The patient was agreeable to be positioned upright in bed for safe swallowing. Cognitive Status Patient Orientation: Person The patient is not oriented to place or situation. The patient frequently stated, "When we're done here, I'm going downstairs to watch the TV." Oral Motor Skills Dentition: Edentalous Current Food Consistancy: Regular, Thin Liquids Ability to Follow Directions: Poor Oral Expression Ability: Severe Impairment Voice Voice Phonatory-Based Quality: Phonation Breaks Voice Pitch: Normal Voice Loudness: Mildly Soft/Quiet Face Facial Symmetry: Asymmetrical (Left facial droop.) Oral-Facial Assessment Oral-Facial Dentition: Normal Labial Seal Description: Reduced ROM, Droops Left, Weak, Poor Coordination Smile: Reduced ROM, Droops Left Lingual Protrusion: Abnormal (Regardless of maximum cueing, the patient was unable to complete lingual protrusion.) Lingual ROM: Abnormal (Regardless of maximum cueing, the patient was unable to complete voluntary lingual range of motion.) Volitional Dry Swallow: No Voluntary Cough: No Can Clear Throat Volitionally: No Dysphagia Evaluation Consistencies Presented: Thin Liquid (Via ice chip and half teaspoon.), Pureed (Following the initial half teaspoon of applesauce, the patient requested pudding.) Oral Phase: Anterior Spillage, Oral Residue, Unable to Form Bolus, Left Pocketing The patient displayed reduced coordination (moderate) with all consistencies provided, demonstrating anterior spillage of ice chips intermittently and poor bolus control and formation of pudding. A lingual thrust continued to push pudding anterior out of the oral cavity and onto the patient's lips. The material was cleaned from the patient's face with a damp wash cloth. The patient attempted to expectorate an ice chip on one occasion, spitting the material following oral acceptance. A suspected delay in the pharyngeal swallow occurred. Multiple swallows were displayed for minimal, limited P.O. trials. The patient required maximum verbal cueing and redirection for limited participation in the clinical bedside swallowing evaluation. The patient frequently closed his eyes or would talk through the clinician's instructions, including during periods of the oral preparatory phase while his oral cavity was filled with P.O. The patient consumed ice chips, straw drinks of thin liquid, and half teaspoons of puree. Increased "wetness" was noted of the vocal quality following straw drinks of thin liquid. The patient's confusion greatly limited the patient's ability to complete the assessment as he requested to "be done" regardless of maximum clinician encouragement. Maximum verbal encouragement was required for oral acceptance of any P.O. in take. Increased participation and alertness with decreased confusion is recommended prior to initiating an oral diet. Dietary Recommendations: NPO Liquid Recommendations: NPO Recommendations: - The patient should remain N.P.O. at this time. - Frequent and excellent oral care to reduce the transfer of oral bacteria to the lungs should aspiration occur. - Essential medication may be crushed and placed in puree for administration. - Speech pathology to continue daily assessments of the patient's oropharyngeal swallow function. The results and recommendations were provided to the patient and the RN will be contacted following completion of the documentation. Speech Short Term Goals Short Term Goals Short Term Goals 1. The patient will participate in P.O. trials with mild clinician verbal cueing to continue bedside swallowing assessments. 2. The patient and staff will follow safe swallowing procedures with 80% accuracy and mild verbal cueing. Time Frame-STG: Three Days. Speech Half-Way Goals Radio Performer Goals 1. The patient will tolerate the least restrictive diet consistency for safe swallowing and to meet daily nutritional needs. Time Frame: Five Days. Speech-Plan Treatment Plan Speech Therapy Treatment Plan: Continue Plan of Care Treatment Duration: Apr 23, 2023 Frequency: 4 times per week Estimated Hrs Per Day: .25 hour per day Rehab Potential: Poor Safety Risks/Education Teaching Recipient: Patient Teaching Methods: Discussion Response to Teaching: Unable to Comprehend Education Topics Provided: Results, Recommendations, Plan of Care Time Speech Therapy Time In: 12:15 Speech Therapy Time Out: 12:35 DATE: Apr 13, 2023 Total Billed Time: 20 Billed Treatment Time 1, [facility] Apr 13, 2023 12:46
[2023-04-13] MEDS ORDERED: RT-ALBUTEROL SULF 2.5 MG/3 ML PRE-MIX VIAL INH PRN (13:30)
--- NOTE | 2023-04-13 13:49 | Consultation-Cardiology ---
HPI-Cardiology Cardiology Consultation: Date of Consultation 04/13/23 Time Seen by a Provider: 13:00 Date of Admission Attending Physician Alisha,Local Physician Admitting Physician Admitting Physician: Tania Garcia DO Attending Physician: Tania Garcia DO Consulting Physician SANCHEZ LUIS MD, MA, FACP, FACC, FSCAI, CCDS Physician requesting consult: Dr Garcia HPI: Chief Complaint: Reason for Card consult: PAF, carotid stenosis 77 yo man admitted by Dr Garcia to her service for treatment of stroke resulting in L-sided weakness. He is confused and does not answer all questions. He denies cp or palp or syncope or shortness of breath. Review of Systems-Cardiology Review of Systems Constitutional: other (A detailed and reliable review of systems is not possible because of patient's confusion. To the degree we could obtain ROS is described under HPI) HHQ-Oydely-Smndlp Hx Patient Social History Former smoker/When Quit: May 10, 1989 Alcohol Use?: No Pt feels they are or have been: Unable to obtain Immunizations Up To Date Tetanus Booster (TDap): Unknown Past Medical History PMH As described under Assessment. Family Medical History Family History: Completed stroke G8 BROTHER (HX OF 2 CVA) Hypertension G8 BROTHER G8 BROTHER Allergies and Home Medications Allergies Coded Allergies: No Known Drug Allergies (Unverified , 03/14/20) Patient Home Medication List Home Medication List Reviewed: Yes Amlodipine Besylate (Amlodipine Besylate) 5 Mg Tablet, 5 MG PO DAILY, (Reported) Entered as Reported by: CATRACHITO FUNK on 03/15/20 1332 Amoxicillin/Potassium Clav (Amox Tr-K Clv 875-125 mg Tab) 1 Each Tablet, 875 MG PO BID WITH MEALS Prescribed by: ANDREI BARMBILA on 03/22/20 1542 Atorvastatin Calcium (Atorvastatin Calcium) 40 Mg Tablet, 40 MG PO HS, (Reporte d) Entered as Reported by: CATRACHITO FUNK on 03/15/20 1332 Clopidogrel Bisulfate (Plavix) 75 Mg Tablet, 75 MG PO DAILY, (Reported) Entered as Reported by: CATRACHITO FUNK on 03/15/20 1332 Hydrochlorothiazide (Hydrochlorothiazide) 12.5 Mg Tablet, 12.5 MG PO DAILY, (Reported) Entered as Reported by: CATRACHITO FUNK on 03/15/20 1332 Lisinopril (Lisinopril) 5 Mg Tablet, 5 MG PO DAILY, (Reported) Entered as Reported by: CATRACHITO FUNK on 03/15/20 1332 Physical Exam-Cardiology Physical Exam Vital Signs/I&O 04/13/23 04/13/23 04/13/23 04/13/23 02:57 02:58 08:35 08:45 Temp 37.5 Pulse 118 116 114 106 Resp 16 20 B/P (MAP) 163/110 163/110 167/88 142/85 (104) Pulse Ox 97 93 O2 Delivery Room Air Room Air 04/13/23 04/13/23 04/13/23 04/13/23 08:45 09:00 09:00 09:07 Temp 37.5 Pulse 106 109 108 114 Resp 19 B/P (MAP) 166/86 156/89 (111) Pulse Ox 95 97 O2 Delivery Room Air FiO2 21 04/13/23 04/13/23 04/13/23 04/13/23 10:00 11:00 12:00 13:02 Pulse 104 102 89 106 Resp 18 20 22 B/P (MAP) 149/71 (97) 170/86 (114) 159/84 (109) Pulse Ox 95 97 96 O2 Delivery Room Air Room Air Room Air Capillary Refill : Less Than 3 Seconds Constitutional: No AAO x 3; well-developed, well-nourished HEENT: other (hearing appears preserved but he does not answer most questions), EOMI; No xanthelasmas are seen Respiratory: No accessory muscle use; chest expansion is symmetric, chest is bilaterally symmetric, other (fair to good bilateral air entry that is diminished at the bases) Cardiovascular: regular rate-rhythm, S1 and S2, systolic murmur (soft SAMARA at cardiac base) Gastrointestinal: No tender; soft; No guarding, No rebound; audible bowel sounds Extremities: other (mild, bilat edema); No clubbing, No cyanosis Neurologic/Psychiatric: other (confusion, rightward gaze, L-sided weakness) Skin: warm/dry; No cyanosis, No cool, No diaphoresis, No rash on exposed areas, No ulcerations on exposed areas Data Review Labs Laboratory Tests 04/12/23 23:32: Glucometer 190H 04/12/23 23:35: White Blood Count 14.5H, Red Blood Count 5.25, Hemoglobin 15.4, Hematocrit 48, Mean Corpuscular Volume 92, Mean Corpuscular Hemoglobin 29, Mean Corpuscular Hemoglobin Concent 32, Red Cell Distribution Width 14.0, Platelet Count 231, Mean Platelet Volume 12.8H, Immature Granulocyte % (Auto) 1, Neutrophils (%) (Auto) 86H, Lymphocytes (%) (Auto) 7L, Monocytes (%) (Auto) 5, Eosinophils (%) (Auto) 1, Basophils (%) (Auto) 0, Neutrophils # (Auto) 12.5H, Lymphocytes # (Auto) 1.0, Monocytes # (Auto) 0.8, Eosinophils # (Auto) 0.1, Basophils # (Auto) 0.1, Immature Granulocyte # (Auto) 0.1, Neutrophils % (Manual) 79, Lymphocytes % (Manual) 4, Monocytes % (Manual) 4, Band Neutrophils 10, Reactive Lymphocytes 3, Thang Cells SLIGHT, Prothrombin Time 13.8, INR Comment 1.0, Activated Partial Thromboplast Time 44H, D-Dimer 0.63H, Sodium Level 136, Potassium Level 4.0, Chloride Level 104, Carbon Dioxide Level 17L, Anion Gap 15H, Blood Urea Nitrogen 20H, Creatinine 1.46H, Estimat Glomerular Filtration Rate 49, BUN/Creatinine Ratio 14, Glucose Level 193H, Calcium Level 9.6, Corrected Calcium 9.5, Total Bilirubin 0.7, Aspartate Amino Transf (AST/SGOT) 25, Alanine Aminotransferase (ALT/SGPT) 24, Alkaline Phosphatase 87, Troponin I < 0.028, Total Protein 7.3, Albumin 4.1 04/13/23 00:01: Urine Color YELLOW, Urine Clarity CLEAR, Urine pH 5.5, Urine Specific [place] >=1.030, Urine Protein 1+H, Urine Glucose (UA) NEGATIVE, Urine Ketones 1+H, Urine Nitrite NEGATIVE, Urine Bilirubin NEGATIVE, Urine Urobilinogen 1.0, Urine Leukocyte Esterase NEGATIVE, Urine RBC (Auto) 1+H, Urine RBC 0-2, Urine WBC NONE, Urine Crystals PRESENTH, Urine Amorphous Sediment RARE GUILHERME URATESH, Urine Bacteria NEGATIVE, Urine Casts PRESENT, Urine Hyaline Casts RARE, Urine Mucus SMALLH, Urine Culture Indicated NO 04/13/23 00:02: SARS-CoV-2 RNA (RT-PCR) Not Detected 04/13/23 06:48: Triglycerides Level 63, Cholesterol Level 116, LDL Cholesterol Direct 66, VLDL Cholesterol 13, HDL Cholesterol 44 04/13/23 09:45: White Blood Count 17.0H, Red Blood Count 5.05, Hemoglobin 15.1, Hematocrit 44, Mean Corpuscular Volume 88, Mean Corpuscular Hemoglobin 30, Mean Corpuscular Hemoglobin Concent 34, Red Cell Distribution Width 14.2, Platelet Count 224, Mean Platelet Volume 11.7, Immature Granulocyte % (Auto) 0, Neutrophils (%) (Auto) 36L, Lymphocytes (%) (Auto) 3L, Monocytes (%) (Auto) 5, Eosinophils (%) (Auto) 56H, Basophils (%) (Auto) 0, Neutrophils # (Auto) 6.1, Lymphocytes # (Auto) 0.5L, Monocytes # (Auto) 0.8, Eosinophils # (Auto) 9.6H, Basophils # (Auto) 0.0, Immature Granulocyte # (Auto) 0.0, Sodium Level 133L, Potassium Level 5.3H, Chloride Level 106, Carbon Dioxide Level 17L, Anion Gap 10, Blood Urea Nitrogen 15, Creatinine 1.19, Estimat Glomerular Filtration Rate 63, BUN/Creatinine Ratio 13, Glucose Level 143H, Calcium Level 8.8, Corrected Calcium 8.9, Total Bilirubin 0.8, Aspartate Amino Transf (AST/SGOT) 69H, Alanine Aminotransferase (ALT/SGPT) 27, Alkaline Phosphatase 76, Total Protein 7.8, Albumin 3.9 04/13/23 10:03: Glucometer 141H Laboratory Tests 04/12/23 23:35 04/13/23 09:45 A/P-Cardiology Assessment/Admission Diagnosis Acute cerebral infarct predominantly involving the right MCA distribution - no hemorrhage reported on MRI of 04/13/23 Severe right carotid stenosis (symptomatic, given R-sided ischemic stroke) - carotid u/s of 04/13/23: right internal carotid artery of greater than 99%; 50- 69% stenosis of the left internal carotid artery PAF on tele - Echo on 04/13/23: LVEF 60-65%, mild concentric LVH Discussion and Recomendations We recommend the following: - transfer to a tertiary care facility with neurology and neurointerventional facility (given patient's symptomatic carotid stenosis) - apixaban 5 mg po bid (given patient's PAF) if no bleeding or other contraindication seen by Dr Garcia I have called and discussed our recommendations with Dr Garcia Clinical Quality Measures DVT/VTE Risk/Contraindication: Contraindications-Pharm: Other *list below* Other: brain bleed Stroke: Date of last known well: Apr 12, 2023 Symptoms onset unknown: Yes SANCHEZ LUIS MD [facility] CCDS Apr 13, 2023 13:49
[2023-04-13] MEDS ORDERED: CLOP75TA28 PO (13:54)
--- NOTE | 2023-04-13 14:33 | Physical Therapy Evaluation ---
PT Evaluation-General Medical Diagnosis Admission Date Apr 13, 2023 at 08:27 Medical Diagnosis: Acute Ischemic Right MCA Stroke Onset Date: Apr 12, 2023 Therapy Diagnosis Therapy Diagnosis: generalized weakness/impaired mobility Height/Weight Height (Feet): 5 Height (Inches): 8.00 Weight (Pounds): 213 Precautions Precautions/Isolations: Aspiration, Fall Prevention, Pressure Ulcer Referral Physician: Jose Reason for Referral: Evaluation/Treatment Medical History Pertinent Medical History: CVA Current History EMS secondary to found on floor at [facility] with stroke like symptoms Reviewed History: Yes Social History Home: Retirement Prior Prior Level of Function SCALE: Activities may be completed with or without assistive devices. 5-Fhblrmujqt-gjobwfg completes the activity by him/herself with no assistance from a helper. 5-Set-up or Clean-up Assistance-helper sets up or cleans up; patient completes activity. [place] assists only prior to or following the activity. 4-Supervision or Touching Assistance-helper provides verbal cues and/or touching/steadying and/or contact guard assistance as patient completes activity. Assistance may be provided throughout the activity or intermittently. 3-Partial/Moderate Assistance-helper does LESS THAN HALF the effort. [place] lifts, holds or supports trunk or limbs, but provides less than half the effort. 2-Substantial/Maximal Assistance-helper does MORE THAN HALF the effort. [place] lifts or holds trunk or limbs and provides more than half the effort. 5-Imnfjaktb-bssctn does ALL the effort. Patient does none of the effort to complete the activity. Or, the assistance of 2 or more helpers is required for the patient to complete the activity. If activity was not attempted, code reason: 7-Patient Refused. 9-Not Applicable-not attempted and the patient did not perform the activity before the current illness, exacerbation or injury. 10-Not Attempted due to Environmental Limitations-(lack of equipment, weather restraints, etc.). 88-Not Attempted due to Medical Conditions or Safety Concerns. unable to determine due to patient's confusion PT Evaluation-Current Subjective Patient is in bed with bed alarm activated. RN present. Objective Patient Orientation: Confused Attachments: Blanchard Catheter ROM/Strength ROM Lower Extremities bilateral LE WFL Strength Lower Extremities right LE 3-/5 grossly (unable to formally test)/left LE flaccid Integumentary/Posture Bowel Incontinence: Yes Bladder Incontinence: Yes Neuromuscular (Tone, Coordination, Reflexes) severely diminished with all with severe left side neglect Sensory Vision: Unable to Assess Hearing: Functional Transfers Roll Left to Right (QC): 1 (x 2) Sit to Lying (QC): 1 (x 2) Lying to Sitting/Side of Bed(Q: 1 (x 2) Sit to Stand (QC): 1 (x 2 with blocking left knee) Balance Sitting Static: Fair Sitting Dynamic: Fair Standing Static: Poor Standing Dynamic: Poor Assessment/Needs Patient will benefit from skilled PT to address functional strength and mobility to improve current LOF. Patient is currently dependent of 2 with all mobility with severe left side neglect and left UE/LE flaccid Rehab Potential: Guarded PT Manufacturer Goals Manufacturer Goals PT Usp Goals Time Frame: May 08, 2023 Roll Left & Right (QC): 3 Sit to Lying (QC): 3 Lying-Sitting on Side/Bed(QC): 3 Sit to Stand (QC): 2 Chair/Smv-az-Ringm Xfer(QC): 2 Toilet Transfer (QC): 2 Walk 10 feet (QC): 2 PT Plan Problem List Problem List: Activity Tolerance, Functional Strength, Safety, Balance, Gait, Transfer, Bed Mobility Treatment/Plan Treatment Plan: Continue Plan of Care Treatment Plan: Bed Mobility, Education, Functional Activity Oksana, Functional Strength, Gait, Safety, Therapeutic Exercise, Transfers Treatment Duration: May 08, 2023 Frequency: 5 times per week Estimated Hrs Per Day: .25 hour per day Time Time In: 1341 Time Out: 1400 DATE: Apr 13, 2023 Total Billed Treatment Time: 19 Total Billed Treatment [address] [facility] 19 min DERIK MCGOWAN PT Apr 13, 2023 14:33
--- NOTE | 2023-04-13 14:45 | Occupational Therapy Eval ---
OT Evaluation-General/PLF Medical Diagnosis Admission Date Apr 13, 2023 at 08:27 Medical Diagnosis: Acute Ischemic Right MCA Stroke Onset Date: Apr 12, 2023 Therapy Diagnosis Therapy Diagnosis: weakness, left side neglect Height/Weight Height (Feet): 5 Height (Inches): 8.00 Weight (Pounds): 213 Precautions Precautions/Isolations: Aspiration, Fall Prevention, Pressure Ulcer Weight Bear Status Weight Bearing Restriction: Weight Bearing/Tolerated Location Restriction: LE Bilateral, UE Bilateral Referral Physician: Jose Referral Reason: Evaluation/Treatment Medical History Pertinent Medical History: CVA Additional Medical History 77 year male [facility] resident with a PMH of HTN and HLD who presented to the ED yesterday around 11:30 PM after being found on the floor of his routine during routine rounds. Per nursing staff he had not been acting like himself" all day and is typically an alert and ambulatory patient.He was found to have flaccid paralysis of the left upper extremity, rightward head turn and right gaze, and obvious contusion of the left frontal temporal scalp. Non-contrast CT was significant for mild hyperdensity of subarachoid space possibly reflective of SAH. CTA of the head and neck showed occlusion of the distal M1 branch on the right and large penumbra and core, severe stenosis of the right ICA, moderate stenosis of the left ICA, severe stenosis of the bilteral intracranial ICAs. ; [facility] neurology was consulted and did not deem patient a candidate for intervention. EKG showed irregularly irregular rhythm, D-dimer was elevated at .63, coagulation panel showed minimally elevated PTT (otherwise normal) and Cr was elevated at 1.46. CXR and UA without evidence of infection or other abnormalities. 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 9-Ppumtweczv-kxpohlf completes the activity by him/herself with no assistance from a helper. 5-Set-up or Clean-up Assistance-helper sets up or cleans up; patient completes activity. [place] assists only prior to or following the activity. 4-Supervision or Touching Assistance-helper provides verbal cues and/or touching/steadying and/or contact guard assistance as patient completes activity. Assistance may be provided throughout the activity or intermittently. 3-Partial/Moderate Assistance-helper does LESS THAN HALF the effort. [place] lifts, holds or supports trunk or limbs, but provides less than half the effort. 2-Substantial/Maximal Assistance-helper does MORE THAN HALF the effort. [place] lifts or holds trunk or limbs and provides more than half the effort. 0-Sciezfhsi-newhji does ALL the effort. Patient does none of the effort to complete the activity. Or, the assistance of 2 or more helpers is required for the patient to complete the activity. If activity was not attempted, code reason: 7-Patient Refused. 9-Not Applicable-not attempted and the patient did not perform the activity before the current illness, exacerbation or injury. 10-Not Attempted due to Environmental Limitations-(lack of equipment, weather restraints, etc.). 88-Not Attempted due to Medical Conditions or Safety Concerns. Self Care: Unknown Functional Cognition: Unknown OT Current Status Subjective Talkative, intermittent OxA x3 Mental Status/Objective Patient Orientation: Person, Place Attachments: Blanchard Catheter, Telemetry Current Upper Extremity ROM PROM BUE WFLS, left neglect actively, Upper Extremity Coordination poor Upper Extremity Sensation impaired Upper Extremity Strength RUE 4/5, NA LUE as does not follow instruction ADL-Treatment Eating (QC): 88 (see ST note) Oral Hygiene (QC): 2 Shower/Bathe Self (QC): 88 Upper Body Dressing (QC): 2 Lower Body Dressing (QC): 1 (sit/stand mod assist x 2 person) On/Off Footwear (QC): 1 Toileting Hygiene (QC): 1 Other Treatments Sitting EOB unsupported minimally, intermittent assist, stand x2 less than 30 seconds Education OT Patient Education: Correct positioning, Modified ADL techniques, Progress toward Goal/Update tx plan, Purpose of tx/functional activities, Reviewed precautions, Rehab process, Safety issues, Transfer techniques, Use of adapted equipment Teaching Recipient: Patient Response to Teaching: Unable to Comprehend, Reinforcement Needed OT Database Design Analyst Goals [facility] Goals Eating (QC): 5 Oral Hygiene (QC): 5 Toileting Hygiene (QC): 3 Shower/Bathe Self (QC): 3 Upper Body Dressing (QC): 4 Lower Body Dressing (QC): 3 On/Off Footwear (QC): 3 1=Demonstrate adherence to instructed precautions during ADL tasks. 2=Patient will verbalize/demonstrate understanding of assistive devices/modifications for ADL. 3=Patient will improve strength/tolerance for activity to enable patient to perform ADL's. OT Education/Plan Problem List/Assessment Assessment: Decreased Activ Tolerance, Decreased Safety Aware, Decreased UE Strength, Dependent Transfers, Impaired Bed Mobility, Impaired Cognition, Impaired Coordination, Impaired Funct Balance, Impaired Self-Care Skills, Restricted Funct UE ROM, Visual-Perceptual Deficit Discharge Recommendations Plan/Recommendations: Continue POC Therapy Discharge Recommendati: Post Acute OT Treatment Plan/Plan of Care Treatment,Training & Education: Yes Patient would benefit from OT for education, treatment and training to promote independence in ADL's, mobility, safety and/or upper extremity function for ADL's. Plan of Care: ADL Retraining, Cognitive Retraining, Concurrent Therapy, Functional Mobility, Group Exercise/Act as Ind, UE Neuromus Re-Ed/Coord, Visual/Perceptual Retrain Treatment Duration: Apr 23, 2023 Frequency: 3 times per week (3-5 times per wk) Estimated Hrs Per Day: .25 hour per day Agreement: Yes Rehab Potential: Guarded Time Start Time: 13:30 Stop Time: 13:45 DATE: Apr 13, 2023 Total Time Billed (hr/min): 15 Billed Treatment Time EV 15 min CARTER CHAMPION OT Apr 13, 2023 14:45
[2023-04-13] MEDS: RT-ALBUTEROL SULF 2.5 MG/3 ML PRE-MIX VIAL INH SCH (19:40)
[2023-04-14] MEDS: NS IV 1000 ML 1,000 ML IV SCH ×4 (03:33→11:23)
[2023-04-14 05:17] LABS: BASOPHILS % (AUTO) 0 % (0-10); EOSINOPHILS % (AUTO) 0 % (0-10); HEMATOCRIT 45 % (40-54); LYMPHOCYTES # (AUTO) 0.8 10^3/uL (1.0-4.0); LYMPHOCYTES % (AUTO) 7 % (12-44); MEAN CORPUSCULAR HEMOGLOBIN 29 pg (25-34); MEAN CORPUSCULAR HGB CONC 31 g/dL (32-36); MEAN CORPUSCULAR VOLUME 94 fL (80-99); MONOCYTES # (AUTO) 0.7 10^3/uL (0.0-1.0); MONOCYTES % (AUTO) 7 % (0-12); NEUTROPHILS # (AUTO) 9.2 10^3/uL (1.8-7.8); NEUTROPHILS % (AUTO) 85 % (42-75); PLATELET COUNT 175 10^3/uL (130-400); WHITE BLOOD COUNT 10.8 10^3/uL (4.3-11.0)
[2023-04-14 05:27] LABS: ALBUMIN 3.5 GM/DL (3.2-4.5)
[2023-04-14 05:28] LABS: POTASSIUM 4.6 MMOL/L (3.6-5.0)
[2023-04-14 05:29] LABS: CALCIUM 8.5 MG/DL (8.5-10.1)
[2023-04-14 05:30] LABS: TOTAL PROTEIN 6.4 GM/DL (6.4-8.2)
[2023-04-14 05:33] LABS: PHOSPHORUS 2.1 MG/DL (2.3-4.7)
[2023-04-14 05:34] LABS: CREATININE SERUM 0.97 MG/DL (0.60-1.30)
[2023-04-14 05:36] LABS: MAGNESIUM 1.8 MG/DL (1.6-2.4)
[2023-04-14] MEDS: dilTIAZem DRIP PRE-MIX 125 ML IV SCH (05:50)
[2023-04-14] MEDS: inSUlin ASPART 1 UNIT/0.01 ML (PER UNIT) SC SCH ×4 (05:53→21:17)
[2023-04-14] MEDS ORDERED: POTASSIUM CHLORIDE 20 MEQ TABLET PO SCH (06:00)
[2023-04-14] MEDS ORDERED: MAGNESIUM 1 GM/100 ML IVPB 100 ML IV SCH (06:00)
[2023-04-14] MEDS ORDERED: POTASSIUM CL 10MEQ/50ML IVPB 50 ML IV SCH (06:00)
[2023-04-14] MEDS: MAGNESIUM 1 GM/100 ML IVPB 100 ML IV SCH ×2 (06:06→07:29)
[2023-04-14] MEDS: RT-ALBUTEROL SULF 2.5 MG/3 ML PRE-MIX VIAL INH SCH ×2 (07:56→19:29)
[2023-04-14] MEDS: DOCUSATE SODIUM 100 MG CAPSULE PO SCH ×2 (08:35→21:48)
[2023-04-14] MEDS: SENNOSIDES 8.6 MG TABLET PO SCH ×2 (08:35→23:51)
--- NOTE | 2023-04-14 08:38 | Tele-ICU Progress Note ---
Subjective Date Seen by a Provider: Apr 14, 2023 Time Seen by a Provider: 08:38 Subjective/Events-last exam (Tele-ICU Physician , Progress Note ) Service provided via interactive audio and video telecommunications E-CARE s yassinete to a patient admitted to ICU bed in [facility]. Patient is seen today due to persistent need of ICU care Available chart/ vitals / labs / Images reviewed Video assessment done using teleICU camera, rest of exam as per RN He is a 77-year-old male resident of a penitent[facility] with past medical history of hypertension and hyperlipidemia who was found to be on the floor around 11:30 PM last night and he was brought to the emergency room and somewhat confused state. He is found to have a flaccid paralysis of the left upper extremity. Stroke work-up done including CT of the head and CTA of the head and neck and found to have changes suggestive of subarachnoid hemorrhage, occlusion of the M1 branch on the right large penumbra and core with a severe stenosis of the right ICA and moderate stenosis of the left ICA. [facility] neurology was consulted and they felt he is not a candidate for intervention and advised admission for stroke work-up. He is also found to be in atrial fibrillation with rapid ventricular rate. He is admitted to the ICU for further work-up and management. He is started on diltiazem drip currently at 5 mg/h. He is heart rate is fairly controlled. 04/14/23 clinically about the same. swallowing is impaired. hr controlled. Echo, MRI, and Carotid US results reviewed. Impression 1. Acute CVA not a candidate for intervention 2. Bilateral carotid stenosis right more than the left. may need stenting on the rt side 3. New onset vs newly diagnosed atrial fibrillation with rapid ventricular rate now controlled 4. Altered mental status probably due to stroke 5. History of hyperlipidemia. Recommendations 1. Consider transfering to a stroke center for further evaluation and possible stenting of Carotids 2. Management of atrial fibrillation per cardiology 3. Physical therapy and Occupational Therapy 4. DVT prophylaxis 5. LDL goal less than 70. 6. Speech therapy. 7. Neurology and cardiology consultation. 8. Aspirin and Plavix per neurology recommendations. Coordination of care with primary care physician and bedside consultants. Today have reviewed the case with OFFICE ASSISTANT as well as in MDR. I am remotely monitoring this patient from Tele icu station in [place]. I am unable to do the bedside exam, and history/physical and pertinent information is taken from other notes in the computer and bedside staff. Certain portions of this document may have been dictated utilizing voice recognition technology such as [employer]amsaferon. Inherent to this technology, typographical and grammatical errors may exist. As much as I am diligent to identify and correct to these mistakes, some errors may remain in the document. Critical care time devoted to this patient today is approximately is 25 minutes.-- Sepsis Event Evaluation Height, Weight, BMI Height: 5'8.00" Weight: 213lbs. oz. 96.745883yh; 35.03 BMI Method: Exam Exam Patient acknowledged, consented, and participated in this virtual visit which was conducted using real time audio/video Vital Signs Date Time Temp Pulse Resp B/P (MAP) Pulse Ox O2 Delivery O2 Flow Rate FiO2 04/14/23 07:57 96 Room Air 04/14/23 07:00 69 04/14/23 06:00 70 127/63 (84) 94 Room Air 04/14/23 05:50 71 136/71 04/14/23 05:00 69 137/65 (89) 94 Room Air 04/14/23 04:18 36.7 04/14/23 04:00 70 133/66 (88) 95 Room Air 04/14/23 03:32 95 Room Air 04/14/23 03:00 70 122/64 (83) 93 Room Air 04/14/23 02:00 80 138/70 (92) 96 Room Air 04/14/23 01:00 86 163/83 (109) 95 Room Air 04/14/23 00:24 36.3 04/14/23 00:07 80 04/14/23 00:00 78 161/80 (107) 97 Room Air 04/13/23 23:51 95 Room Air 04/13/23 23:00 74 136/76 (96) 95 Room Air 04/13/23 22:00 92 171/94 (119) 95 Room Air 04/13/23 21:00 86 159/79 (105) 95 Room Air 04/13/23 20:00 84 152/73 (99) 95 Room Air 04/13/23 20:00 36.9 Room Air 04/13/23 19:52 95 Room Air 04/13/23 19:50 96 Room Air 04/13/23 19:01 82 04/13/23 19:00 74 130/70 (90) 94 Room Air 04/13/23 19:00 37.4 85 163/77 (105) 95 Room Air 04/13/23 18:00 89 141/76 (97) 96 Room Air 04/13/23 17:00 93 16 161/78 (105) 95 Room Air 04/13/23 16:00 93 18 157/76 (103) 96 Room Air 04/13/23 16:00 95 Room Air 04/13/23 15:47 37.8 Room Air 04/13/23 15:00 93 25 167/87 (113) 94 Room Air 04/13/23 14:00 90 19 149/88 (108) 96 Room Air 04/13/23 13:02 106 04/13/23 13:00 89 24 166/102 (123) 96 Room Air 04/13/23 12:00 37.0 04/13/23 12:00 94 Room Air 04/13/23 12:00 89 22 159/84 (109) 96 Room Air 04/13/23 11:00 102 20 170/86 (114) 97 Room Air 04/13/23 10:00 104 18 149/71 (97) 95 Room Air 04/13/23 09:07 37.5 114 97 21 04/13/23 09:00 37.7 04/13/23 09:00 95 Room Air 04/13/23 09:00 108 19 156/89 (111) 95 Room Air 04/13/23 09:00 109 166/86 04/13/23 08:45 106 04/13/23 08:45 106 20 142/85 (104) 93 Room Air I & O 04/14/23 06:59 Intake Total 1000 ml Output Total 2575 ml Balance -1575 ml Height & Weight Height: 5'8.00" Weight: 213lbs. oz. 96.485896cr; 35.03 BMI Method: General Appearance: No Apparent Distress, WD/WN, Chronically ill Respiratory: Lungs Clear, Normal Breath Sounds Cardiovascular: Regular Rate, Rhythm Capillary Refill: Less Than 3 Seconds Gastrointestinal: normal bowel sounds, non tender, soft Neurologic/Psychiatric: Alert, Aphasia, Disoriented, Motor Weakness (Motor strength 0-1 in the left upper and lower extremity ), Other (right deviation of the head) Skin: Normal Color, Warm/Dry Results Lab Laboratory Tests 04/12/23 23:35 04/13/23 09:45 04/14/23 04:22 Assessment/Plan Assessment/Plan as above Critical Care: Critically Ill Patient Time spent with patient (mins): 20 CARL GRAVES MD Apr 14, 2023 08:38
--- NOTE | 2023-04-14 08:45 | Diagnostic Imaging Report ---
EXAMINATION: Chest 1 view HISTORY: Shortness of breath. Acute stroke. COMPARISON: 04/12/2023 FINDINGS: Lung volumes remain low. There is cardiomegaly and congestion. No focal consolidation. No large pleural effusion or pneumothorax. IMPRESSION: 1. Persistent low lung volumes with cardiomegaly and congestion. Dictated by: Dictated on workstation # [id number]
[2023-04-14] MEDS: ENOXAPARIN 120 MG/0.8 ML SYRINGE SC SCH ×2 (08:51→20:18)
--- NOTE | 2023-04-14 09:21 | Speech Therapy Daily Note ---
Speech Daily Progress Note Subjective Date Seen by Provider: Apr 14, 2023 Time Seen by Provider: 08:20 The patient was lying in bed, sleeping, upon entrance to his room by the clinician. The patient does not wake to a verbal greeting or maximum verbal encouragement. The clinician places all lights on in the room in attempts to improve alertness. A wash cloth is used to clean the patient's face and the patient is positioned upright in bed. The patient will intermittently open eyes for eye contact with the clinician. Objective Audible wheezing in appreciated throughout observations. While reduced alertness was present throughout the evaluation on the prior date, the patient displays an additional decline in alertness on this date. At this time, the clinician requests the RN. During periods of opened eyes and eye contact, the patient followed one verbal prompt to attempt lingual protrusion. The patient is unable to protrude the tongue from the oral cavity but limited lateral movement is visualized. The patient attempts acceptance of ice chip and pudding. Maximum verbal cueing is required. Delayed coughing is present which appeared secondary to the patient's secretions mixing with the pudding. Due to consistent poor alertness, P.O. trials are deferred for patient safety. The RN is present and the patient is discussed. Per RN, the patient did not sleep well throughout the evening but was not provided any medication which would result in drowsiness. The patient should remain N.P.O. (including medication crushed) until alertness improves (RN agrees). ST will re-attempt the evaluation this afternoon to evaluate for improved appropriateness and alertness for participation. Assessment Assessment Current Status: Poor Progress Treatment Plan Continue Plan of Care Speech Short Term Goals Short Term Goals Short Term Goals 1. The patient will participate in P.O. trials with mild clinician verbal cueing to continue bedside swallowing assessments. 2. The patient and staff will follow safe swallowing procedures with 80% accuracy and mild verbal cueing. Time Frame-STG: Three Days. Speech Intermediate Goals Intermediate Goals 1. The patient will tolerate the least restrictive diet consistency for safe swallowing and to meet daily nutritional needs. Time Frame: Five Days. Speech-Plan Treatment Plan Speech Therapy Treatment Plan: Continue Plan of Care Treatment Duration: Apr 23, 2023 Frequency: 4 times per week Estimated Hrs Per Day: .25 hour per day Rehab Potential: Guarded Safety Risks/Education Teaching Recipient: Patient Teaching Methods: Discussion Response to Teaching: Unable to Comprehend Education Topics Provided: Plan of Care Time Speech Therapy Time In: 08:20 Speech Therapy Time Out: 08:40 DATE: Apr 14, 2023 Total Billed Time: 20 Billed Treatment Time 1, JASON CHAIDEZ Apr 14, 2023 09:21
[2023-04-14] MEDS: ASPIRIN enteric coated 81MG TABLET PO SCH (09:32)
--- NOTE | 2023-04-14 10:22 | Progress Note - Cardiology ---
Cardiology SOAP Progress Note Subjective: Drowsy - does awaken and briefly answers questions Reports being "tired" No c/o CP or SOB Objective: I&O/Vital Signs 04/14/23 04/15/23 04/15/23 04/15/23 23:08 01:40 03:10 07:00 Temp 36.7 36.8 Pulse 79 78 76 Resp 20 20 B/P (MAP) 162/91 (114) 136/67 (90) Pulse Ox 94 94 O2 Delivery Room Air Room Air Room Air 04/15/23 04/15/23 07:25 07:36 Temp 37.2 Pulse 72 Resp 19 B/P (MAP) 142/70 (94) Pulse Ox 93 94 O2 Delivery Room Air Room Air O2 Flow Rate 0.00 04/14/23 23:59 Intake Total 505 ml Output Total 700 ml Balance -195 ml Weight (Pounds): 213 Weight (Calculated Kilograms): 96.343427 Constitutional: No AAO x 3; well-developed, well-nourished Respiratory: No accessory muscle use; chest expansion is symmetric, chest is bilaterally symmetric, other (fair to good bilateral air entry that is diminished at the bases) Cardiovascular: regular rate-rhythm, S1 and S2, systolic murmur (soft SAMARA at cardiac base) Gastrointestional: No tender; soft; No guarding, No rebound; audible bowel sounds Extremities: other (mild, bilat edema); No clubbing, No cyanosis Neurologic/Psychiatric: other (confusion, rightward gaze, L-sided weakness) Skin: warm/dry; No cyanosis, No cool, No diaphoresis, No rash on exposed areas, No ulcerations on exposed areas Results/Procedures: Labs Laboratory Tests 04/14/23 11:14: Glucometer 108 04/14/23 16:02: Glucometer 103 04/14/23 20:04: Glucometer 108 04/15/23 05:06: White Blood Count 8.5, Red Blood Count 4.93, Hemoglobin 14.5, Hematocrit 44, Mean Corpuscular Volume 90, Mean Corpuscular Hemoglobin 29, Mean Corpuscular Hemoglobin Concent 33, Red Cell Distribution Width 14.0, Platelet Count 182, Mean Platelet Volume 12.1, Immature Granulocyte % (Auto) 0, Neutrophils (%) (Auto) 79H, Lymphocytes (%) (Auto) 12, Monocytes (%) (Auto) 7, Eosinophils (%) (Auto) 2, Basophils (%) (Auto) 1, Neutrophils # (Auto) 6.7, Lymphocytes # (Auto) 1.0, Monocytes # (Auto) 0.6, Eosinophils # (Auto) 0.2, Basophils # (Auto) 0.1, Immature Granulocyte # (Auto) 0.0, Sodium Level 137, Potassium Level 3.8, Chloride Level 109H, Carbon Dioxide Level 19L, Anion Gap 9, Blood Urea Nitrogen 17, Creatinine 1.07, Estimat Glomerular Filtration Rate 71, BUN/Creatinine Ratio 16, Glucose Level 94, Calcium Level 8.4L, Corrected Calcium 8.6, Magnesium Level 2.4, Total Bilirubin 0.7, Aspartate Amino Transf (AST/SGOT) 65H, Alanine Aminotransferase (ALT/SGPT) 33, Alkaline Phosphatase 78, Total Protein 6.6, Albumin 3.7 04/15/23 05:13: Glucometer 91 Microbiology 04/13/23 MRSA Screen - Final, Complete MRSA not isolated Procedures NAME: [facility] REC#: [id number] PT STATUS: ADM IN : 1945 PHYSICIAN: QIANA WEINER DO ADMIT DATE: 04/13/23/ICU Signed Date of Exam:04/14/23 CHEST 1 VIEW, AP/PA ONLY EXAMINATION: Chest 1 view HISTORY: Shortness of breath. Acute stroke. COMPARISON: 04/12/2023 FINDINGS: Lung volumes remain low. There is cardiomegaly and congestion. No focal consolidation. No large pleural effusion or pneumothorax. IMPRESSION: 1. Persistent low lung volumes with cardiomegaly and congestion. Dictated by: Dictated on workstation # [id number] Dict: 04/14/2336 Trans: 04/14/2358 [facility] [id number] Interpreted by: ANIL ROJAS DO Electronically signed by: ANIL ROJAS DO 04/14/23 0858 A/P: Assessment: Acute cerebral infarct predominantly involving the right MCA distribution - no hemorrhage reported on MRI of 04/13/23 Severe right carotid stenosis (symptomatic, given R-sided ischemic stroke) - carotid u/s of 04/13/23: right internal carotid artery of greater than 99%; 50- 69% stenosis of the left internal carotid artery PAF on tele - Echo on 04/13/23: LVEF 60-65%, mild concentric LVH Plan: We recommend the following: - transfer to a tertiary care facility with neurology and neurointerventional facility (given patient's symptomatic carotid stenosis) - apixaban 5 mg po bid (given patient's PAF) if no bleeding or other contraindication seen by Dr Weiner - currently on Lovenox - Cardizem currently off - maintaining SR at this time - unable to safely take p.o intake at this time Dr. Nunes has discussed our recommendations with Dr Weiner Clinical Quality Measures Stroke: Date of last known well: Apr 12, 2023 Symptoms onset unknown: Yes JULIO AYALA Apr 14, 2023 10:22
[2023-04-14] MEDS: meTOprolol INJECTION 5 MG/5 ML VIAL IV SCH ×4 (11:22→23:32)
--- NOTE | 2023-04-14 12:53 | Occupational Ther Daily Note ---
OT Current Status-Daily Note Subjective Agreeable to OT Mental Status/Objective Patient Orientation: Person Attachments: Blanchard Catheter, Telemetry ADL-Treatment Therapy Code Descriptions/Definitions Functional [place] Measure: 0=Not Assessed/NA 4=Minimal Assistance 1=Total Assistance 5=Supervision or Setup 2=Maximal Assistance 6=Modified [place] 3=Moderate Assistance 7=Complete IndependenceSCALE: Activities may be completed with or without assistive devices. 4-Vgarbabbmm-kucaacq completes the activity by him/herself with no assistance from a helper. 5-Set-up or Clean-up Assistance-helper sets up or cleans up; patient completes activity. [place] assists only prior to or following the activity. 4-Supervision or Touching Assistance-helper provides verbal cues and/or touching/steadying and/or contact guard assistance as patient completes activity. Assistance may be provided throughout the activity or intermittently. 3-Partial/Moderate Assistance-helper does LESS THAN HALF the effort. [place] lifts, holds or supports trunk or limbs, but provides less than half the effort. 2-Substantial/Maximal Assistance-helper does MORE THAN HALF the effort. [place] lifts or holds trunk or limbs and provides more than half the effort. 8-Gyasmshbd-kdherf does ALL the effort. Patient does none of the effort to complete the activity. Or, the assistance of 2 or more helpers is required for the patient to complete the activity. If activity was not attempted, code reason: 7-Patient Refused. 9-Not Applicable-not attempted and the patient did not perform the activity before the current illness, exacerbation or injury. 10-Not Attempted due to Environmental Limitations-(lack of equipment, weather restraints, etc.). 88-Not Attempted due to Medical Conditions or Safety Concerns. Other Treatment PROM for neck rotation, patient does track therapist slow movements to patient left side.Eyes trail OT face.Patient reports static stretch pulls neck,AROM RUE/ LUE with tactile cues Education OT Patient Education: Correct positioning, Exercise program, Progress toward Goal/Update tx plan, Purpose of tx/functional activities, Reviewed precautions, Rehab process, Safety issues Teaching Recipient: Patient Teaching Methods: Demonstration, Discussion Response to Teaching: Reinforcement Needed OT Data Services Developer Goals [facility] Goals Eating (QC): 5 Oral Hygiene (QC): 5 Toileting Hygiene (QC): 3 Shower/Bathe Self (QC): 3 Upper Body Dressing (QC): 4 Lower Body Dressing (QC): 3 On/Off Footwear (QC): 3 1=Demonstrate adherence to instructed precautions during ADL tasks. 2=Patient will verbalize/demonstrate understanding of assistive devices/modifications for ADL. 3=Patient will improve strength/tolerance for activity to enable patient to perform ADL's. OT Education/Plan Problem List/Assessment Assessment: Decreased Activ Tolerance, Decreased Safety Aware, Decreased UE Strength, Dependent Transfers, Impaired Bed Mobility, Impaired Cognition, Impaired Coordination, Impaired Funct Balance, Impaired Self-Care Skills, Re stricted Funct UE ROM Discharge Recommendations Plan/Recommendations: Continue POC Treatment Plan/Plan of Care Patient would benefit from OT for education, treatment and training to promote independence in ADL's, mobility, safety and/or upper extremity function for ADL's. Plan of Care: ADL Retraining, Cognitive Retraining, Concurrent Therapy, Functional Mobility, Group Exercise/Act as Ind, UE Neuromus Re-Ed/Coord, Visual/Perceptual Retrain Treatment Duration: Apr 23, 2023 Frequency: 3 times per week (3-5 times per wk) Estimated Hrs Per Day: .25 hour per day Agreement: Yes Rehab Potential: Guarded Time Start Time: 11:00 Stop Time: 11:13 DATE: Apr 14, 2023 Total Time Billed (hr/min): 13 Billed Treatment Time EX 13 min CARTER CHAMPION OT Apr 14, 2023 12:53
--- NOTE | 2023-04-14 14:08 | Speech Therapy Daily Note ---
Speech Daily Progress Note Subjective Date Seen by Provider: Apr 14, 2023 Time Seen by Provider: 13:40 The patient was lying in bed, eyes closed, upon entrance to his room by the clinician. The patient woke easily with a verbal prompt from the clinician however required consistent verbal input to remain at an appropriate level of alertness for participation. The patient stated he was "hungry" and was agreeable to participation in the skilled dysphagia treatment session. Objective The patient does display mild improvement with alertness at this time and is completing appropriate communicative interactions (stating he is hungry, asking for Diet Coke). The patient displays difficulty orally accepting the P.O. bolus, as the clinician utilizing wiping the spoon on the lingual surface to remove bolus. Oral and lingual manipulation and coordination remain poor, as frequent anterior spillage is visualized. The patient is able to transfer the bolus posterior and elicit a pharyngeal swallow with one ice chip, one half teaspoon of water, and one half teaspoon of puree. Following the puree bolus, the patient politely refused additional P.O. The clinician attempted gentle encouragement and the necessity to improve oral intake to meet nutritional needs. Regardless, the patient continues to request P.O. trials be ended. The patient displayed a similar behavior to day prior, requesting P.O. than quickly requesting P.O. trials cease following limited attempts. While the patient displays slight improvement throughout the afternoon session, the patient remains unable to safely consume P.O. and meet daily nutritional needs with P.O. intake alone. At this time, the current plan of care should co ntinue. ST to re-assess the patient's swallowing on the subsequent treatment date. The clinician discussed the patient with the patient's RN prior to and following the treatment session. Assessment Assessment Current Status: Poor Progress Treatment Plan Continue Plan of Care Speech Short Term Goals Short Term Goals Short Term Goals 1. The patient will participate in P.O. trials with mild clinician verbal cueing to continue bedside swallowing assessments. 2. The patient and staff will follow safe swallowing procedures with 80% accur acy and mild verbal cueing. Time Frame-STG: Three Days. Speech Detention Goals Legal Billing Coordinator Goals 1. The patient will tolerate the least restrictive diet consistency for safe swallowing and to meet daily nutritional needs. Time Frame: Five Days. Speech-Plan Treatment Plan Speech Therapy Treatment Plan: Continue Plan of Care Treatment Duration: Apr 23, 2023 Frequency: 4 times per week Estimated Hrs Per Day: .25 hour per day Rehab Potential: Guarded Safety Risks/Education Teaching Recipient: Patient Teaching Methods: Discussion Response to Teaching: Unable to Comprehend Education Topics Provided: Plan of Care Time Speech Therapy Time In: 13:40 Speech Therapy Time Out: 13:55 DATE: Apr 14, 2023 Total Billed Time: 15 Billed Treatment Time 1, DYST JASON JARAMILLO Apr 14, 2023 14:08
--- NOTE | 2023-04-14 14:23 | Progress Note ---
DEA DIAZ 04/14/23 1423: Subjective Date Seen by a Provider: Apr 14, 2023 Time Seen by a Provider: 11:00 Subjective/Events-last exam 77 yo M found to have acute ischemic stroke of the right MCA territory on 04/12. This morning, the patient's speech is more intelligible but he does not answer more than 3 questions. He is oriented to self and location but not time. He has 0/5 motor strength in the left upper and lower extremity. He continues to have a right head deviation though it is improved compared to admission. Objective Exam Last Set of Vital Signs Vital Signs Date Time Temp Pulse Resp B/P (MAP) Pulse Ox O2 Delivery O2 Flow Rate FiO2 04/14/23 12:00 71 130/74 (92) 95 Room Air 04/14/23 11:15 36.8 04/13/23 18:00 04/13/23 09:07 21 Capillary Refill : Less Than 3 Seconds I&O Intake and Output 04/13/23 23:59 Intake Total 2000 ml Output Total 2275 ml Balance -275 ml Intake Oral 0 ml IV Total 2000 ml Output Urine Total 2275 ml Daily Weight Change No Heart: Regular Rate, Other (regular rhythm ) Results Lab Laboratory Tests 04/13/23 15:25: Glucometer 131H 04/13/23 21:04: Glucometer 109 04/14/23 04:22: White Blood Count 10.8, Red Blood Count 4.78, Hemoglobin 14.0, Hematocrit 45, Mean Corpuscular Volume 94, Mean Corpuscular Hemoglobin 29, Mean Corpuscular Hemoglobin Concent 31L, Red Cell Distribution Width 14.3, Platelet Count 175, Mean Platelet Volume 12.0, Immature Granulocyte % (Auto) 0, Neutrophils (%) (Auto) 85H, Lymphocytes (%) (Auto) 7L, Monocytes (%) (Auto) 7, Eosinophils (%) (Auto) 0, Basophils (%) (Auto) 0, Neutrophils # (Auto) 9.2H, Lymphocytes # (Auto) 0.8L, Monocytes # (Auto) 0.7, Eosinophils # (Auto) 0.0, Basophils # (Auto) 0.0, Immature Granulocyte # (Auto) 0.0, Sodium Level 135, Potassium Level 4.6, Chloride Level 107, Carbon Dioxide Level 18L, Anion Gap 10, Blood Urea Nitrogen 13, Creatinine 0.97, Estimat Glomerular Filtration Rate 80, BUN/Creatinine Ratio 13, Glucose Level 113H, Calcium Level 8.5, Corrected Calciu m 8.9, Phosphorus Level 2.1L, Magnesium Level 1.8, Total Bilirubin 1.0, Aspartate Amino Transf (AST/SGOT) 73H, Alanine Aminotransferase (ALT/SGPT) 28, Alkaline Phosphatase 77, Total Protein 6.4, Albumin 3.5 04/14/23 11:14: Glucometer 108 Microbiology 04/13/23 MRSA Screen - Final, Complete MRSA not isolated Assessment/Plan Assessment/Plan Assess & Plan/Chief Complaint Ischemic stroke of the R. MCA without hemorraghic conversion Left-sided flaccid paralysis Aphasia - Etiology likely embolic, due to carotid stenosis or atrial fibrillation - CTA 04/12 with "distal right M2 occlusion" and severe carotid artery disease - MRI 04/13 with significant motion artifact and "no intraparenchymal hemorrhage" - Patient did not undergo intervention ([facility] neurology recommendations) - Echo 04/13 with normal EF and diastolic function - Poor results on swallow studies thus far (NPO recommended) - Patient still with 0/5 strength and no sensation of LUE and LLE - Continue NPO and start Pob-angel luis feeding tube - Continue statin and aspirin - Continue PT, OT, speech Severe right ICA stenosis Severe bilateral ECA stenosis Moderate left ICA stenosis - Demonstrated on CTA and bilateral carotid US - Outpatient stenting Paroxysmal atrial fibrillation - Rate and rhythm controllated at this time - Cardiology recommending apixaban - Continue metoprolol Acute kidney injury - resolved - Baseline of 1 - 1.29 in 2019 Clinical Quality Measures Admission Status Admission Dx Acute ischemic stroke of the right MCA Left-sided flaccid paralysis Aphasia - Possibly with hemorrhagic conversion. Etiology likely embolic 2/2 carotid stenosis or atrial fibrillation. - 04/12 CT: "mild hyperdensity of subarachnoid space possibly reflective of subaracnoid hemorrhage" - 04/12 CTA: CTA: Distal right M2 occlusion. Severe stenosis of R ICA, moderate stenosis of L ICA. Severe stenosis of bilateral intracranial ICAs. Increasing hyperdense appearance along the subarachnoid space. "Uncertain whether this represents true SAH versus infarct". - [facility] neurology consulted 04/12 and deemed patient not a candidate for intervention Plan: - MRI, bilateral US and Echocardiogram pending - Holding aspirin and DAPT until MRI rules out hemorrhage - Atorvostatin 80 mg daily - PT, OT and speech therapy - Swallow study Stenosis of the right ICA, severe Stenosis of the left ICA, moderate - Bilateral carotid US pending - Outpatient stenting Atrial fibrillation - EKG today NSR with occasional ventricular premature complexes - Cardiology consulted - Continue diltiazem 5mg IV Acute kidney injury - resolved - Baseline of 1 - 1.29 in 2019 DVT/VTE Risk/Contraindication: Contraindications-Pharm: Other *list below* Other: brain bleed Stroke: Date of last known well: Apr 12, 2023 Symptoms onset unknown: Yes TANIA WEINER DO 04/15/23 0522: Subjective Subjective/Events-last exam Patient not recovering from stroke Dobbhoff will be placed for nutrition Very poor prognosis Objective Exam General: Other (Sleeping) Lungs: Clear to Auscultation Heart: Regular Rate Assessment/Plan Assessment/Plan Assess & Plan/Chief Complaint Catastrophic CVA Dysphagia Aspiration risk Plan: Guardianship PEG tube Supervisory-Addendum Brief Verification & Attestation Participated in pt care: history, MDM, physical Personally performed: exam, history, MDM, supervision of care Care discussed with: Medical Student Procedures: n/a Results interpretation: Verified all documentation Verification and Attestation of Medical Student E/M Service A medical student performed and documented this service in my presence. I reviewed and verified all information documented by the medical student and made modifications to such information, when appropriate. I personally performed the physical exam and medical decision making. Tania Weiner Apr 15, 2023,05:21 DEA DIAZ Apr 14, 2023 14:23 TANIA WEINER DO Apr 15, 2023 05:22
--- NOTE | 2023-04-14 14:39 | Progress Note - Cardiology ---
Cardiology SOAP Progress Note Subjective: Verbally unresponsive Objective: I&O/Vital Signs 04/14/23 04/14/23 04/14/23 04/14/23 03:00 03:32 04:00 04:18 Temp 36.7 Pulse 70 70 B/P (MAP) 122/64 (83) 133/66 (88) Pulse Ox 93 95 95 O2 Delivery Room Air Room Air Room Air 04/14/23 04/14/23 04/14/23 04/14/23 05:00 05:50 06:00 07:00 Pulse 69 71 70 67 B/P (MAP) 137/65 (89) 136/71 127/63 (84) 133/63 (86) Pulse Ox 94 94 96 O2 Delivery Room Air Room Air Room Air 04/14/23 04/14/23 04/14/23 04/14/23 07:00 07:57 08:00 08:00 Pulse 69 74 B/P (MAP) 137/77 (97) Pulse Ox 96 96 99 O2 Delivery Room Air Room Air Room Air 04/14/23 04/14/23 04/14/23 04/14/23 09:00 10:00 11:00 11:15 Temp 36.8 Pulse 73 65 69 B/P (MAP) 137/72 (93) 125/78 (94) 103/62 (76) Pulse Ox 94 94 95 O2 Delivery Room Air Room Air Room Air 04/14/23 04/14/23 12:00 12:00 Pulse 71 B/P (MAP) 130/74 (92) Pulse Ox 93 95 O2 Delivery Room Air Room Air 04/13/23 23:59 Intake Total 1000 ml Output Total 1025 ml Balance -25 ml Weight (Pounds): 213 Weight (Calculated Kilograms): [id number] Constitutional: No AAO x 3; well-developed, well-nourished, other (Verbally unresponsive) Respiratory: No accessory muscle use; chest expansion is symmetric, chest is bilaterally symmetric, other (fair to good bilateral air entry that is diminished at the bases) Cardiovascular: regular rate-rhythm, S1 and S2, systolic murmur (soft SAMARA at cardiac base) Gastrointestional: No tender; soft; No guarding, No rebound; audible bowel sounds Extremities: other (mild, bilat edema); No clubbing, No cyanosis Neurologic/Psychiatric: other (rightward gaze, L-sided weakness) Skin: warm/dry; No cyanosis, No cool, No diaphoresis, No rash on exposed areas, No ulcerations on exposed areas Results/Procedures: Labs Laboratory Tests 04/13/23 15:25: Glucometer 131H 04/13/23 21:04: Glucometer 109 04/14/23 04:22: White Blood Count 10.8, Red Blood Count 4.78, Hemoglobin 14.0, Hematocrit 45, Mean Corpuscular Volume 94, Mean Corpuscular Hemoglobin 29, Mean Corpuscular Hemoglobin Concent 31L, Red Cell Distribution Width 14.3, Platelet Count 175, Mean Platelet Volume 12.0, Immature Granulocyte % (Auto) 0, Neutrophils (%) (Auto) 85H, Lymphocytes (%) (Auto) 7L, Monocytes (%) (Auto) 7, Eosinophils (%) (Auto) 0, Basophils (%) (Auto) 0, Neutrophils # (Auto) 9.2H, Lymphocytes # (Auto) 0.8L, Monocytes # (Auto) 0.7, Eosinophils # (Auto) 0.0, Basophils # (Auto) 0.0, Immature Granulocyte # (Auto) 0.0, Sodium Level 135, Potassium Level 4.6, Chloride Level 107, Carbon Dioxide Level 18L, Anion Gap 10, Blood Urea Nitrogen 13, Creatinine 0.97, Estimat Glomerular Filtration Rate 80, BUN/Creatinine Ratio 13, Glucose Level 113H, Calcium Level 8.5, Corrected Calcium 8.9, Phosphorus Level 2.1L, Magnesium Level 1.8, Total Bilirubin 1.0, Aspartate Amino Transf (AST/SGOT) 73H, Alanine Aminotransferase (ALT/SGPT) 28, Alkaline Phosphatase 77, Total Protein 6.4, Albumin 3.5 04/14/23 11:14: Glucometer 108 Microbiology 04/13/23 MRSA Screen - Final, Complete MRSA not isolated Laboratory Tests 04/12/23 23:35 04/13/23 09:45 04/14/23 04:22 A/P: Assessment: Acute cerebral infarct predominantly involving the right MCA distribution - no hemorrhage reported on MRI of 04/13/23 Severe right carotid stenosis (symptomatic, given R-sided ischemic stroke) - carotid u/s of 04/13/23: right internal carotid artery of greater than 99%; 50- 69% stenosis of the left internal carotid artery PAF on tele - Echo on 04/13/23: LVEF 60-65%, mild concentric LVH Plan: We recommend the following: - transfer to a tertiary care facility with neurology and neurointerventional facility (given patient's symptomatic carotid stenosis) - apixaban 5 mg po bid (given patient's PAF) if no bleeding or other contraindication seen by Dr Garcia - currently on Lovenox - Cardizem currently off - maintaining SR at this time - unable to safely take p.o intake at this time I have discussed our recommendations with Dr Garcia Clinical Quality Measures Stroke: Date of last known well: Apr 12, 2023 Symptoms onset unknown: Yes SANCHEZ LUIS MD FACP FAC CCDS Apr 14, 2023 14:39
--- NOTE | 2023-04-14 16:22 | Physical Therapy Daily Note ---
PT Daily Note-Current Subjective Patient lying supine in bed upon PT arrival, agreeable to treatment but notes he has to have a BM. Pain Section J - Health Conditions 1. Rarely or not at all 2. Occasionally 3. Frequently 4. Almost constantly 8. Unable to answer Pain Effect on Sleep: 8 Pain Interference with Therapy: 8 Pain Interference w/Day-to-Day: 8 Transfers SCALE: Activities may be completed with or without assistive devices. 8-Qvnxavbuon-ggtvkrb completes the activity by him/herself with no assistance from a helper. 5-Set-up or Clean-up Assistance-helper sets up or cleans up; patient completes activity. [place] assists only prior to or following the activity. 4-Supervision or Touching Assistance-helper provides verbal cues and/or touching/steadying and/or contact guard assistance as patient completes activity. Assistance may be provided throughout the activity or intermittently. 3-Partial/Moderate Assistance-helper does LESS THAN HALF the effort. [place] lifts, holds or supports trunk or limbs, but provides less than half the effort. 2-Substantial/Maximal Assistance-helper does MORE THAN HALF the effort. [place] lifts or holds trunk or limbs and provides more than half the effort. 8-Kcthtyzff-atezbh does ALL the effort. Patient does none of the effort to complete the activity. Or, the assistance of 2 or more helpers is required for the patient to complete the activity. If activity was not attempted, code reason: 7-Patient Refused. 9-Not Applicable-not attempted and the patient did not perform the activity before the current illness, exacerbation or injury. 10-Not Attempted due to Environmental Limitations-(lack of equipment, weather restraints, etc.). 88-Not Attempted due to Medical Conditions or Safety Concerns. Roll Left & Right (QC): 1 Assessment Current Status: Poor Progress Patient requesting to have a BM upon PT arrival, nurse contacted and bedpan placed due to safety issues. Patient required total a for all bed mobility. Patient removed from bedpan post attempt. Patient in bed post treatment with all needs met, nurse in room. PT Gun Striper Goals Snf Goals PT Snf Goals Time Frame: May 08, 2023 Roll Left & Right (QC): 3 Sit to Lying (QC): 3 Lying-Sitting on Side/Bed(QC): 3 Sit to Stand (QC): 2 Chair/Eql-se-Vyiat Xfer(QC): 2 Toilet Transfer (QC): 2 Walk 10 feet (QC): 2 PT Plan Treatment/Plan Treatment Plan: Continue Plan of Care Treatment Plan: Bed Mobility, Education, Functional Activity Oksana, Functional Strength, Gait, Safety, Therapeutic Exercise, Transfers Treatment Duration: May 08, 2023 Frequency: 5 times per week Estimated Hrs Per Day: .25 hour per day Safety Risks/Education Patient Education: Transfer Techniques Teaching Recipient: Patient Teaching Methods: Demonstration, Discussion Response to Teaching: Reinforcement Needed Time Time In: 1453 Time Out: 1510 DATE: Apr 14, 2023 Total Billed Treatment Time: 17 Total Billed Treatment Visit, KAYE BHATT PT Apr 14, 2023 16:22
--- NOTE | 2023-04-14 17:55 | Diagnostic Imaging Report ---
INDICATION: Dobbhoff placement. EXAMINATION: Chest from 04/14/2023. FINDINGS: There is a Dobbhoff catheter with the tip likely in the stomach. It should be advanced. Right hemidiaphragm is elevated. Scattered atelectasis in the right lung. No effusions. No pneumothorax. Heart and pulmonary vasculature are normal. IMPRESSION: Dobbhoff catheter tip likely in the stomach and should be advanced. Otherwise, incidental findings as above. Dictated by: Dictated on workstation # [id number]
[2023-04-14 18:46] VITALS: BP 159/77
[2023-04-14 20:07] VITALS: BP 136/65
[2023-04-14 20:20] VITALS: BP 136/65
--- NOTE | 2023-04-14 22:31 | Diagnostic Imaging Report ---
INDICATION: Feeding tube placement. EXAMINATION: Chest, 04/14/2023. COMPARISON: Same date at an earlier time. FINDINGS: There is atelectasis at the right lung base. Low lung volumes with right hemidiaphragm elevated. Worsened markings in the lungs, likely due to mild edema with pulmonary vascular congestion noted. Heart prominent. No pneumothorax. No significant effusion. There is a Dobbhoff catheter tip likely in the distal stomach. It could be advanced. IMPRESSION: Dobbhoff catheter tip in the distal stomach. Dictated by: Dictated on workstation # [id number]
[2023-04-14 23:08] VITALS: BP 162/91
[2023-04-15] VITALS (7 sets, daily range): BP systolic 136–190; BP diastolic 67–89
[2023-04-15] MEDS: NS IV 1000 ML 1,000 ML IV SCH ×2 (01:45→15:14)
[2023-04-15] MEDS: meTOprolol INJECTION 5 MG/5 ML VIAL IV SCH ×6 (03:15→23:38)
[2023-04-15] MEDS: inSUlin ASPART 1 UNIT/0.01 ML (PER UNIT) SC SCH ×4 (05:40→21:27)
[2023-04-15 05:55] LABS: BASOPHILS # (AUTO) 0.1 10^3/uL (0.0-0.1); BASOPHILS % (AUTO) 1 % (0-10); EOSINOPHILS # (AUTO) 0.2 10^3/uL (0.0-0.3); EOSINOPHILS % (AUTO) 2 % (0-10); HEMATOCRIT 44 % (40-54); HEMOGLOBIN 14.5 g/dL (13.3-17.7); LYMPHOCYTES % (AUTO) 12 % (12-44); MEAN CORPUSCULAR HEMOGLOBIN 29 pg (25-34); MEAN CORPUSCULAR HGB CONC 33 g/dL (32-36); MEAN CORPUSCULAR VOLUME 90 fL (80-99); MEAN PLATELET VOLUME 12.1 fL (9.0-12.2); MONOCYTES # (AUTO) 0.6 10^3/uL (0.0-1.0); MONOCYTES % (AUTO) 7 % (0-12); NEUTROPHILS # (AUTO) 6.7 10^3/uL (1.8-7.8); NEUTROPHILS % (AUTO) 79 % (42-75); PLATELET COUNT 182 10^3/uL (130-400); WHITE BLOOD COUNT 8.5 10^3/uL (4.3-11.0)
[2023-04-15 05:56] LABS: ALBUMIN 3.7 GM/DL (3.2-4.5); POTASSIUM 3.8 MMOL/L (3.6-5.0)
[2023-04-15 05:57] LABS: CALCIUM 8.4 MG/DL (8.5-10.1)
[2023-04-15 05:59] LABS: TOTAL PROTEIN 6.6 GM/DL (6.4-8.2)
[2023-04-15 06:01] LABS: BILIRUBIN,TOTAL 0.7 MG/DL (0.1-1.0)
[2023-04-15 06:02] LABS: CREATININE SERUM 1.07 MG/DL (0.60-1.30)
[2023-04-15 06:05] LABS: MAGNESIUM 2.4 MG/DL (1.6-2.4)
[2023-04-15] MEDS: RT-ALBUTEROL SULF 2.5 MG/3 ML PRE-MIX VIAL INH SCH ×2 (07:24→19:56)
--- NOTE | 2023-04-15 07:33 | Diagnostic Imaging Report ---
CHEST 1 VIEW, AP/PA ONLY Indication: Dobbhoff repositioning Comparison: Earlier same day at 7:56 PM Findings: Dobbhoff has tip terminating in the proximal stomach. Stable asymmetric elevation right hemidiaphragm. Right basilar atelectasis is unchanged. No pleural effusion or pneumothorax. Stable cardiac silhouette. Impression: 1. Dobbhoff has been mildly retracted and now has tip in the proximal stomach. Dictated by: Dictated on workstation # [id number]
[2023-04-15] MEDS: ENOXAPARIN 120 MG/0.8 ML SYRINGE SC SCH ×2 (08:09→21:17)
[2023-04-15] MEDS ORDERED: ACETAMINOPHEN 650 MG SUPPOSITORY PR PRN (08:15)
--- NOTE | 2023-04-15 09:04 | Speech Therapy Daily Note ---
Speech Daily Progress Note Subjective Date Seen by Provider: Apr 15, 2023 Time Seen by Provider: 08:20 The patient was lying in bed, head faced towards the right with eyes opened, upon entrance to his room by the clinician. The patient verbally greeted the patient appropriately and was agreeable to participation in the skilled dysphagia treatment session. The patient required maximum verbal encouragement for appropriate alertness levels and participation. As the patient continues to request Diet Coke, the clinician offers to include Diet Coke in the assessment if continued participation in received. The patient was positioned upright in bed for safe swallowing. Objective The patient was provided teaspoon sips of water (three), teaspoons sips of Diet Coke (two), straw drinks of water (eight), straw drinks of Diet Coke (one), and half teaspoons of pudding. Moderate anterior spillage from the right labial side was appreciated and cleaned with a towel. The patient does not make attempts to eliminate or reduce the anterior spill. Poor oral manipulation continues to be displayed, with limited lingual range of motion bilaterally. Posterior transfer was achieved with verbal encouragement and a pharyngeal swallow was consistently triggered. The patient appears to have increased oral dysphagia versus pharyng eal dysphagia at this time. While overt s/s of suspected aspiration were not displayed, subtle signs were suspected (increased respirations). Following the final trial, the patient politely deferred additional P.O., stating he was "not hungry." The patient does display increased progress at this time and is appropriate for a modified barium swallow to assess for the presence of silent aspiration and best provide an appropriate plan of care moving forward. Regardless of aspiration, the clinician is concerned of the patient's ability to meet daily nutritional needs with P.O. intake alone. The clinician attempted contact with the patient's RN on two attempts however the RN is currently in an isolation room. The message was provided to a RN on the medical who agreed to place the order for the modified barium swallow. Radiology has agreed to complete the study at 10:00 on this date. Additional recommendations pending completion of the study. Assessment Assessment Current Status: Fair Progress Treatment Plan Continue Plan of Care Speech Short Term Goals Short Term Goals Short Term Goals 1. The patient will participate in P.O. trials with mild clinician verbal cueing to continue bedside swallowing assessments. 2. The patient and staff will follow safe swallowing procedures with 80% accuracy and mild verbal cueing. Time Frame-STG: Three Days. Speech Penitentiary Goals Isotope Technician Goals 1. The patient will tolerate the least restrictive diet consistency for safe swallowing and to meet daily nutritional needs. Time Frame: Five Days. Speech-Plan Treatment Plan Speech Therapy Treatment Plan: Continue Plan of Care Treatment Duration: Apr 23, 2023 Frequency: 4 times per week Estimated Hrs Per Day: .25 hour per day Rehab Potential: Guarded Pt/Family Agrees to Plan: Yes Safety Risks/Education Teaching Recipient: Patient Teaching Methods: Discussion Response to Teaching: Unable to Comprehend Time Speech Therapy Time In: 08:20 Speech Therapy Time Out: 08:45 DATE: Apr 15, 2023 Total Billed Time: 25 Billed Treatment Time 1, JASON CHAIDEZ Apr 15, 2023 09:04
--- NOTE | 2023-04-15 09:58 | Progress Note - Cardiology ---
Cardiology SOAP Progress Note Objective: I&O/Vital Signs 04/15/23 04/16/23 04/16/23 04/16/23 23:35 00:16 03:51 07:00 Temp 37.1 37.2 Pulse 74 73 77 59 Resp 20 20 B/P (MAP) 156/89 (111) 161/84 (109) Pulse Ox 94 94 O2 Delivery Room Air Room Air 04/16/23 04/16/23 07:09 07:36 Temp 36.6 Pulse 70 Resp 18 B/P (MAP) 150/91 (110) Pulse Ox 98 96 O2 Delivery Room Air Room Air O2 Flow Rate 0.00 04/15/23 23:59 Intake Total 390 ml Output Total 600 ml Balance -210 ml Weight (Pounds): 213 Weight (Calculated Kilograms): 96.185250 Constitutional: No AAO x 3; well-developed, well-nourished, other (Verbally unresponsive) Respiratory: No accessory muscle use; chest expansion is symmetric, chest is bilaterally symmetric, other (fair to good bilateral air entry that is diminished at the bases) Cardiovascular: regular rate-rhythm, S1 and S2, systolic murmur (soft SAMARA at cardiac base) Gastrointestional: No tender; soft; No guarding, No rebound; audible bowel sounds Extremities: other (mild, bilat edema); No clubbing, No cyanosis Neurologic/Psychiatric: other (rightward gaze, L-sided weakness) Skin: warm/dry; No cyanosis, No cool, No diaphoresis, No rash on exposed areas, No ulcerations on exposed areas Results/Procedures: Labs Laboratory Tests 04/15/23 10:47: Glucometer 90 04/15/23 15:30: Glucometer 82 04/15/23 20:22: Glucometer 94 04/16/23 06:00: Glucometer 94 04/16/23 06:15: White Blood Count 7.4, Red Blood Count 4.93, Hemoglobin 14.5, Hematocrit 44, Mean Corpuscular Volume 90, Mean Corpuscular Hemoglobin 29, Mean Corpuscular Hemoglobin Concent 33, Red Cell Distribution Width 13.8, Platelet Count 196, Mean Platelet Volume 11.3, Immature Granulocyte % (Auto) 0, Neutrophils (%) (Auto) 72, Lymphocytes (%) (Auto) 16, Monocytes (%) (Auto) 6, Eosinophils (%) (Auto) 5, Basophils (%) (Auto) 1, Neutrophils # (Auto) 5.3, Lymphocytes # (Auto) 1.2, Monocytes # (Auto) 0.5, Eosinophils # (Auto) 0.3, Basophils # (Auto) 0.1, Immature Granulocyte # (Auto) 0.0, Sodium Level 138, Potassium Level 4.1, Chloride Level 111H, Carbon Dioxide Level 17L, Anion Gap 10, Blood Urea Nitrogen 17, Creatinine 0.94, Estimat Glomerular Filtration Rate 83, BUN/Creatinine Ratio 18, Glucose Level 89, Calcium Level 8.3L, Corrected Calcium 8.6, Magnesium Level 2.2, Total Bilirubin 0.7, Aspartate Amino Transf (AST/SGOT) 49H, Alanine Aminotransferase (ALT/SGPT) 33, Alkaline Phosphatase 72, Total Protein 6.5, Albumin 3.6 Microbiology 04/13/23 MRSA Screen - Final, Complete MRSA not isolated A/P: Assessment: Acute cerebral infarct predominantly involving the right MCA distribution - no hemorrhage reported on MRI of 04/13/23 Severe right carotid stenosis (symptomatic, given R-sided ischemic stroke) - carotid u/s of 04/13/23: right internal carotid artery of greater than 99%; 50- 69% stenosis of the left internal carotid artery PAF on tele - Echo on 04/13/23: LVEF 60-65%, mild concentric LVH Plan: We recommend the following: - transfer to a tertiary care facility with neurology and neurointerventional facility (given patient's symptomatic carotid stenosis) - Start apixaban 5 mg po bid (given patient's PAF) and stop Lovenox when patient is able to take oral intake - continue IV BB d/t inability to swallow - change to oral when able to take p.o. intake Monitor lab Replace electrolytes Clinical Quality Measures Stroke: Date of last known well: Apr 12, 2023 Symptoms onset unknown: Yes JULIO AYALA Apr 15, 2023 09:58
--- NOTE | 2023-04-15 10:13 | Progress Note ---
DEA DIAZ 04/15/23 1013: Subjective Date Seen by a Provider: Apr 15, 2023 Time Seen by a Provider: 11:00 Subjective/Events-last exam 77 yo M found to have acute ischemic stroke of the right MCA territory on 04/12. This morning, the patient answers 1-2 questions before dosing off. Was unable to assess his orientation because of this. He has 0/5 motor strength in the left upper and lower extremity (unchanged from yesterday's examination). He continues to have a right head deviation though it is improved compared to admission Objective Exam Last Set of Vital Signs Vital Signs Date Time Temp Pulse Resp B/P (MAP) Pulse Ox O2 Delivery O2 Flow Rate FiO2 04/15/23 07:36 37.2 72 19 142/70 (94) 94 Room Air 04/15/23 07:25 0.00 04/13/23 09:07 21 Capillary Refill : Less Than 3 Seconds I&O Intake and Output 04/14/23 23:59 Intake Total 805 ml Output Total 1450 ml Balance -645 ml Intake Oral 0 ml IV Total 805 ml Output Urine Total 1450 ml General: Other (A&O x1) Heart: Regular Rate Neuro: Other (0/5 muscle strength of LUE and LLE. right head deviation. unchanged from prior examination. ) Results Lab Laboratory Tests 04/14/23 11:14: Glucometer 108 04/14/23 16:02: Glucometer 103 04/14/23 20:04: Glucometer 108 04/15/23 05:06: White Blood Count 8.5, Red Blood Count 4.93, Hemoglobin 14.5, Hematocrit 44, Mean Corpuscular Volume 90, Mean Corpuscular Hemoglobin 29, Mean Corpuscular Hemoglobin Concent 33, Red Cell Distribution Width 14.0, Platelet Count 182, Mean Platelet Volume 12.1, Immature Granulocyte % (Auto) 0, Neutrophils (%) (Auto) 79H, Lymphocytes (%) (Auto) 12, Monocytes (%) (Auto) 7, Eosinophils (%) (Auto) 2, Basophils (%) (Auto) 1, Neutrophils # (Auto) 6.7, Lymphocytes # (Auto) 1.0, Monocytes # (Auto) 0.6, Eosinophils # (Auto) 0.2, Basophils # (Auto) 0.1, Immature Granulocyte # (Auto) 0.0, Sodium Level 137, Potassium Level 3.8, Chloride Level 109H, Carbon Dioxide Level 19L, Anion Gap 9, Blood Urea Nitrogen 17, Creatinine 1.07, Estimat Glomerular Filtration Rate 71, BUN/Creatinine Ratio 16, Glucose Level 94, Calcium Level 8.4L, Corrected Calcium 8.6, Magnesium Level 2.4, Total Bilirubin 0.7, Aspartate Amino Transf (AST/SGOT) 65H, Alanine Aminotransferase (ALT/SGPT) 33, Alkaline Phosphatase 78, Total Protein 6.6, Albumin 3.7 04/15/23 05:13: Glucometer 91 Microbiology 04/13/23 MRSA Screen - Final, Complete MRSA not isolated Assessment/Plan Assessment/Plan Assess & Plan/Chief Complaint Ischemic stroke of the R. MCA without hemorraghic conversion Left-sided flaccid paralysis Aphasia - Etiology likely embolic, due to carotid stenosis or atrial fibrillation - CTA 04/12 with "distal right M2 occlusion" and severe carotid artery disease - MRI 04/13 with significant motion artifact and "no intraparenchymal hemorrhage" - Patient did not undergo intervention ([facility] neurology recommendations) - Echo 04/13 showing LVH and normal EF - Patient still with 0/5 strength and no sensation of LUE and LLE - Barium swallow study today showing tolerance of pureed food PLAN: - Pureed foods and liquids as tolerated - Statin and aspirin - DAPT - PT, OT, speech Severe carotid artery disease - Severe R ICA stenosis on 04/12 CTA and 04/13 US - Moderate L ICA stenosis on 04/12 CTA and 04/13 US - Severe bilateral ECA stenosis on 04/13 US PLAN: - Outpatient stenting Paroxysmal atrial fibrillation - Rate and rhythm controllated at this time - Cardiology recommending apixaban - Continue metoprolol Acute kidney injury - resolved - Baseline of 1 - 1.29 in 2020 Disposition: Discharge to [facility] tomorrow. Clinical Quality Measures Admission Status Admission Dx Acute ischemic stroke of the right MCA Left-sided flaccid paralysis Aphasia - Possibly with hemorrhagic conversion. Etiology likely embolic 2/2 carotid stenosis or atrial fibrillation. - 04/12 CT: "mild hyperdensity of subarachnoid space possibly reflective of subaracnoid hemorrhage" - 04/12 CTA: CTA: Distal right M2 occlusion. Severe stenosis of R ICA, moderate stenosis of L ICA. Severe stenosis of bilateral intracranial ICAs. Increasing hyperdense appearance along the subarachnoid space. "Uncertain whether this represents true SAH versus infarct". - [facility] neurology consulted 04/12 and deemed patient not a candidate for intervention Plan: - MRI, bilateral US and Echocardiogram pending - Holding aspirin and DAPT until MRI rules out hemorrhage - Atorvostatin 80 mg daily - PT, OT and speech therapy - Swallow study Stenosis of the right ICA, severe Stenosis of the left ICA, moderate - Bilateral carotid US pending - Outpatient stenting Atrial fibrillation - EKG today NSR with occasional ventricular premature complexes - Cardiology consulted - Continue diltiazem 5mg IV Acute kidney injury - resolved - Baseline of 1 - 1.29 in 2019 DVT/VTE Risk/Contraindication: Contraindications-Pharm: Other *list below* Other: brain bleed Stroke: Date of last known well: Apr 12, 2023 Symptoms onset unknown: Yes TANIA WEINER DO 04/15/232052: Subjective Subjective/Events-last exam More alert today but confused Able to eat pureed and liquids DC planned for tomorrow Vascular surgery consult ordered as outpatient Objective Exam General: Alert, Other (A&O x1) Lungs: Clear to Auscultation Heart: Regular Rate Assessment/Plan Assessment/Plan Assess & Plan/Chief Complaint DC back to [place] Vascular surgery consult outpatient Supervisory-Addendum Brief Verification & Attestation Participated in pt care: history, MDM, physical Personally performed: exam, history, MDM, supervision of care Care discussed with: Medical Student Procedures: n/a Results interpretation: Verified all documentation Verification and Attestation of Medical Student E/M Service A medical student performed and documented this service in my presence. I reviewed and verified all information documented by the medical student and made modifications to such information, when appropriate. I personally performed the physical exam and medical decision making. Tania Weiner Apr 15, 2023,20:52 DEA DIAZ Apr 15, 2023 10:13 TANIA WEINER DO Apr 15, 2023 20:53
--- NOTE | 2023-04-15 10:57 | Diagnostic Imaging Report ---
INDICATION: Dysphagia. Procedure was performed in conjunction with speech pathology. Video fluoroscopy was performed during the swallowing of barium at multiple consistencies. Total of 44 seconds of fluoroscopic time was utilized. Reference air Juan is 4.5 mGy. Patient does have a thin barium as well as pudding consistency. Oral phase unremarkable. There is normal epiglottic tilt and laryngeal elevation. No laryngeal penetration or aspiration was observed. IMPRESSION: Unremarkable modified barium swallow study. Dictated by: Dictated on workstation # [id number]
--- NOTE | 2023-04-15 11:40 | Occupational Ther Daily Note ---
OT Current Status-Daily Note Subjective No change in yesterday's visual tracking, Mental Status/Objective Patient Orientation: Person, Place Attachments: Blanchard Catheter, IV ADL-Treatment Therapy Code Descriptions/Definitions Functional [place] Measure: 0=Not Assessed/NA 4=Minimal Assistance 1=Total Assistance 5=Supervision or Setup 2=Maximal Assistance 6=Modified [place] 3=Moderate Assistance 7=Complete IndependenceSCALE: Activities may be completed with or without assistive devices. 0-Afkvkmlyoz-bzivmjo completes the activity by him/herself with no assistance from a helper. 5-Set-up or Clean-up Assistance-helper sets up or cleans up; patient completes activity. [place] assists only prior to or following the activity. 4-Supervision or Touching Assistance-helper provides verbal cues and/or touching /steadying and/or contact guard assistance as patient completes activity. Assistance may be provided throughout the activity or intermittently. 3-Partial/Moderate Assistance-helper does LESS THAN HALF the effort. [place] lifts, holds or supports trunk or limbs, but provides less than half the effort. 2-Substantial/Maximal Assistance-helper does MORE THAN HALF the effort. [place] lifts or holds trunk or limbs and provides more than half the effort. 3-Bsjinytsr-bhxkes does ALL the effort. Patient does none of the effort to complete the activity. Or, the assistance of 2 or more helpers is required for the patient to complete the activity. If activity was not attempted, code reason: 7-Patient Refused. 9-Not Applicable-not attempted and the patient did not perform the activity before the current illness, exacerbation or injury. 10-Not Attempted due to Environmental Limitations-(lack of equipment, weather restraints, etc.). 88-Not Attempted due to Medical Conditions or Safety Concerns. Other Treatment Following directions w/ visual and tactile cues for alertness and scenarios Education OT Patient Education: Correct positioning, Reviewed precautions, Rehab process, Safety issues Teaching Recipient: Patient Teaching Methods: Demonstration, Discussion Response to Teaching: Reinforcement Needed OT Box Machine Operator Goals Halfway Goals Eating (QC): 5 Oral Hygiene (QC): 5 Toileting Hygiene (QC): 3 Shower/Bathe Self (QC): 3 Upper Body Dressing (QC): 4 Lower Body Dressing (QC): 3 On/Off Footwear (QC): 3 1=Demonstrate adherence to instructed precautions during ADL tasks. 2=Patient will verbalize/demonstrate understanding of assistive devices/modifications for ADL. 3=Patient will improve strength/tolerance for activity to enable patient to perform ADL's. OT Education/Plan Problem List/Assessment Assessment: Decreased Activ Tolerance, Decreased Safety Aware, Decreased UE Strength, Dependent Transfers, Impaired Bed Mobility, Impaired Cognition, Impaired Coordination, Impaired Funct Balance, Impaired Self-Care Skills, Restricted Funct UE ROM Discharge Recommendations Plan/Recommendations: Continue POC Treatment Plan/Plan of Care Treatment,Training & Education: Yes Patient would benefit from OT for education, treatment and training to promote independence in ADL's, mobility, safety and/or upper extremity function for ADL's. Plan of Care: ADL Retraining, Cognitive Retraining, Concurrent Therapy, Functional Mobility, Group Exercise/Act as Ind, UE Neuromus Re-Ed/Coord, Visual/Perceptual Retrain Treatment Duration: Apr 23, 2023 Frequency: 3 times per week (3-5 times per wk) Estimated Hrs Per Day: .25 hour per day Agreement: Yes Rehab Potential: Guarded Time Start Time: 10:00 Stop Time: 10:08 DATE: Apr 15, 2023 Total Time Billed (hr/min): 8 Billed Treatment Time FA 8 min CARTER CHAMPION OT Apr 15, 2023 11:40
--- NOTE | 2023-04-15 11:41 | Physical Therapy Daily Note ---
PT Daily Note-Current Subjective Patient is more alert. Pain Section J - Health Conditions 1. Rarely or not at all 2. Occasionally 3. Frequently 4. Almost constantly 8. Unable to answer Pain Effect on Sleep: 8 Pain Interference with Therapy: 8 Pain Interference w/Day-to-Day: 8 Transfers SCALE: Activities may be completed with or without assistive devices. 7-Jyhkpzmosc-obhopbx completes the activity by him/herself with no assistance from a helper. 5-Set-up or Clean-up Assistance-helper sets up or cleans up; patient completes activity. [place] assists only prior to or following the activity. 4-Supervision or Touching Assistance-helper provides verbal cues and/or touching/steadying and/or contact guard assistance as patient completes activity. Assistance may be provided throughout the activity or intermittently. 3-Partial/Moderate Assistance-helper does LESS THAN HALF the effort. [place] lifts, holds or supports trunk or limbs, but provides less than half the effort. 2-Substantial/Maximal Assistance-helper does MORE THAN HALF the effort. [place] lifts or holds trunk or limbs and provides more than half the effort. 4-Pjbevbvip-pskzjm does ALL the effort. Patient does none of the effort to complete the activity. Or, the assistance of 2 or more helpers is required for the patient to complete the activity. If activity was not attempted, code reason: 7-Patient Refused. 9-Not Applicable-not attempted and the patient did not perform the activity before the current illness, exacerbation or injury. 10-Not Attempted due to Environmental Limitations-(lack of equipment, weather restraints, etc.). 88-Not Attempted due to Medical Conditions or Safety Concerns. Roll Left & Right (QC): 1 (x 2) Assessment Patient transferred to chair for procedure/testing. More alert PT Die Inspector Goals Custodial Goals PT Die Inspector Goals Time Frame: May 08, 2023 Roll Left & Right (QC): 3 Sit to Lying (QC): 3 Lying-Sitting on Side/Bed(QC): 3 Sit to Stand (QC): 2 Chair/Liw-tu-Letcg Xfer(QC): 2 Toilet Transfer (QC): 2 Walk 10 feet (QC): 2 PT Plan Treatment/Plan Treatment Plan: Continue Plan of Care Treatment Plan: Bed Mobility, Education, Functional Activity Oksana, Functional Strength, Gait, Safety, Therapeutic Exercise, Transfers Treatment Duration: May 08, 2023 Frequency: 5 times per week Estimated Hrs Per Day: .25 hour per day Patient and/or Family Agrees t: Yes Time Time In: 1000 Time Out: 1008 DATE: Apr 15, 2023 Total Billed Treatment Time: 8 Total Billed Treatment 1 visit FA 8 min DERIK MCGOWAN PT Apr 15, 2023 11:41
[2023-04-15] MEDS: ASPIRIN enteric coated 81MG TABLET PO SCH (11:43)
[2023-04-15] MEDS: CLOPIDOGREL 75 MG TABLET PO SCH (11:43)
[2023-04-15] MEDS: SENNOSIDES 8.6 MG TABLET PO SCH ×2 (11:43→21:17)
--- NOTE | 2023-04-15 11:48 | Speech Therapy Progress Note ---
Therapy Progress Note The patient completed a modified barium swallow on this date. Recommendations below with full report and details to follow. The RN was notified of the results and recommendations: - PU4 with thin liquids, as tolerated. - Fully upright and ALERT for P.O. intake. - Full feeding assistance, 1:1. - Assess for oral pocketing throughout and following P.O. - Small bites and sips, only. - Crush medication and place in puree for administration. - Monitor for s/s of suspected aspiration with P.O. intake. If demonstrated, contact speech pathology and return the patient to N.P.O. - Encourage P.O. intake. Oral supplements may be necessary to meet daily nutritional needs. - The clinician will continue to monitor the patient for diet tolerance throughout his acute admission. JASON JARAMILLO Apr 15, 2023 11:47
[2023-04-15] MEDS: DOCUSATE SODIUM 100 MG CAPSULE PO SCH ×2 (12:07→21:26)
--- NOTE | 2023-04-15 13:43 | ST Mod Barium Swallow ---
Speech Evaluation-General Medical Diagnosis Acute Ischemic Right MCA Stroke Onset Date: Apr 12, 2023 Therapy Diagnosis Therapy Diagnosis: Moderate Oral Dysphagia Precautions Precautions: Fall, Pressure Ulcer, Aspiration Precautions/Isolations: Aspiration, Fall Prevention, Pressure Ulcer Referral Referring Physician: Dr. Garcia Reason for Referral: Evaluation/Treatment Medical History Pertinent Medical History: CVA Reviewed History: Yes Social History Home: [facility] Current Living Status: Alone Speech Mod Barium Swallow Prior Level of Function Please refer to the patient's clinical bedside swallow report for full details regarding prior level of function. Oral Motor Skills Dentition Comments: Edentulous. Lingual Protrusion: Abnormal Lingual Protrusion Comments: The patient is unable to protrude the tongue at this time. Lingual ROM: Abnormal Lingual ROM Comments: Reduced bilateral range of motion noted. Lingual Strength: Abnormal Textures-Lateral View Lateral View Food Presentation: Thin Liquid via Spoon, Thin Liquid via Straw, Pureed Solids Oral Phase Labial Closure: Moderate Impairment Bolus Formation Pooling L/R: Moderate Impairment Bolus Formation Placement: Moderate Impairment A/P Lingual Propulsion: Mild Impairment Lingual Movement: Mild Impairment The patient demonstrated moderate oral impairments on this date. The patient displayed anterior spillage of thin liquids from the bilateral lips. Pooling of bolus consistency (thin liquids) was visualized along the floor of the mouth and buccal spaces. Decreased posterior transfer time was appreciated. One occurrence of premature spillage of thin liquids to the pyriform sinuses was observed with a large straw drink of thin liquid. Moderate oral residue remained following the swallow which was minimized with a subsequent dry swallow. Pharyngeal Phase Swallow Response: No Impairment (WFL) Base of Tongue: No Impairment (WFL) Epiglottic Movement: No Impairment (WFL) Laryngeal Elevation: No Impairment (WFL) Vallecular Residue: No Impairment (WFL) Pharyngeal Wall Residue: No Impairment (WFL) Piriform Sinus Residue: No Impairment (WFL) Laryngeal Penetration: None Aspiration Observations: None The patient demonstrated an intact pharyngeal phase of the swallow function. No aspiration or laryngeal penetration occurred with any consistency tested. A timely onset of the swallow was visualized with each consistency presented. Summary/Impressions The patient demonstrated moderate oral dysphagia characterized by reduced lingual and oral range of motion, strength and coordination. No aspiration or laryngeal penetration occurred with any consistency tested. Recommendations: - PU4 with thin liquids, as tolerated. - Fully upright and ALERT for P.O. intake. - Full feeding assistance, 1:1. - Assess for oral pocketing throughout and following P.O. - Small bites and sips, only. - Crush medication and place in puree for administration. - Monitor for s/s of suspected aspiration with P.O. intake. If demonstrated, contact speech pathology and return the patient to N.P.O. - Encourage P.O. intake. Oral supplements may be necessary to meet daily nutritional needs. - The clinician will continue to monitor the patient for diet tolerance t hroughout his acute admission. The results and recommendations were provided to the RN immediately following completion. Speech Short Term Goals Short Term Goals Short Term Goals 1. The patient will participate in P.O. trials with mild clinician verbal cueing to continue bedside swallowing assessments. 2. The patient and staff will follow safe swallowing procedures with 80% accuracy and mild verbal cueing. Time Frame-STG: Three Days. Speech Mcc Goals Inspector Exhaust Emissions Goals 1. The patient will tolerate the least restrictive diet consistency for safe swallowing and to meet daily nutritional needs. Time Frame: Five Days. Speech-Plan Treatment Plan Speech Therapy Treatment Plan: Continue Plan of Care Treatment Duration: Apr 23, 2023 Frequency: 4 times per week Estimated Hrs Per Day: .25 hour per day Rehab Potential: Guarded Pt/Family Agrees to Plan: Yes Safety Risks/Education Teaching Recipient: Patient Teaching Methods: Discussion Response to Teaching: Reinforcement Needed Education Topics Provided: Results, Recommendations, Plan of Care, Safe Swallowing Precautions Time Speech Therapy Time In: 10:00 Speech Therapy Time Out: 10:20 DATE: Apr 15, 2023 Total Billed Time: 20 Billed Treatment Time 1, MOD, DYST JASON JARAMILLO Apr 15, 2023 13:43
--- NOTE | 2023-04-15 16:23 | Progress Note - Cardiology ---
Cardiology SOAP Progress Note Subjective: Verbally unresponsive Objective: I&O/Vital Signs 04/15/23 04/15/23 04/15/23 04/15/23 07:00 07:25 07:36 09:00 Temp 37.2 Pulse 76 72 Resp 19 B/P (MAP) 142/70 (94) Pulse Ox 93 94 O2 Delivery Room Air Room Air Room Air O2 Flow Rate 0.00 04/15/23 04/15/23 04/15/23 04/15/23 11:48 12:29 13:37 16:07 Temp 37.1 36.7 Pulse 72 65 61 Resp 18 20 B/P (MAP) 190/86 (120) 150/76 (100) 172/77 (108) Pulse Ox 94 94 O2 Delivery Room Air Room Air 04/14/23 23:59 Intake Total 505 ml Output Total 700 ml Balance -195 ml Weight (Pounds): 213 Weight (Calculated Kilograms): 96.221336 Constitutional: No AAO x 3; well-developed, well-nourished, other (Verbally unresponsive) Respiratory: No accessory muscle use; chest expansion is symmetric, chest is bilaterally symmetric, other (fair to good bilateral air entry that is diminished at the bases) Cardiovascular: regular rate-rhythm, S1 and S2, systolic murmur (soft SAMARA at cardiac base) Gastrointestional: No tender; soft; No guarding, No rebound; audible bowel sounds Extremities: other (mild, bilat edema); No clubbing, No cyanosis Neurologic/Psychiatric: other (rightward gaze, L-sided weakness) Skin: warm/dry; No cyanosis, No cool, No diaphoresis, No rash on exposed areas, No ulcerations on exposed areas Results/Procedures: Labs Laboratory Tests 04/14/23 20:04: Glucometer 108 04/15/23 05:06: White Blood Count 8.5, Red Blood Count 4.93, Hemoglobin 14.5, Hematocrit 44, Mean Corpuscular Volume 90, Mean Corpuscular Hemoglobin 29, Mean Corpuscular Hem oglobin Concent 33, Red Cell Distribution Width 14.0, Platelet Count 182, Mean Platelet Volume 12.1, Immature Granulocyte % (Auto) 0, Neutrophils (%) (Auto) 79H, Lymphocytes (%) (Auto) 12, Monocytes (%) (Auto) 7, Eosinophils (%) (Auto) 2, Basophils (%) (Auto) 1, Neutrophils # (Auto) 6.7, Lymphocytes # (Auto) 1.0, Monocytes # (Auto) 0.6, Eosinophils # (Auto) 0.2, Basophils # (Auto) 0.1, Immature Granulocyte # (Auto) 0.0, Sodium Level 137, Potassium Level 3.8, Chloride Level 109H, Carbon Dioxide Level 19L, Anion Gap 9, Blood Urea Nitrogen 17, Creatinine 1.07, Estimat Glomerular Filtration Rate 71, BUN/Creatinine Ratio 16, Glucose Level 94, Calcium Level 8.4L, Corrected Calcium 8.6, Magnesium Level 2.4, Total Bilirubin 0.7, Aspartate Amino Transf (AST/SGOT) 65H, Alanine Aminotransferase (ALT/SGPT) 33, Alkaline Phosphatase 78, Total Protein 6.6, Albumin 3.7 04/15/23 05:13: Glucometer 91 04/15/23 10:47: Glucometer 90 04/15/23 15:30: Glucometer 82 Microbiology 04/13/23 MRSA Screen - Final, Complete MRSA not isolated A/P: Assessment: Acute cerebral infarct predominantly involving the right MCA distribution - no hemorrhage reported on MRI of 04/13/23 Severe right carotid stenosis (symptomatic, given R-sided ischemic stroke) - carotid u/s of 04/13/23: right internal carotid artery of greater than 99%; 50- 69% stenosis of the left internal carotid artery PAF on tele - Echo on 04/13/23: LVEF 60-65%, mild concentric LVH Unable to swallow Plan: We recommend the following: - transfer to a tertiary care facility with neurology and neurointerventional facility (given patient's symptomatic carotid stenosis) - Start apixaban 5 mg po bid (given patient's PAF) and stop Lovenox when patient is able to take oral intake - continue IV BB d/t inability to swallow - change to oral when able to take p.o. intake Monitor lab Replace electrolytes Clinical Quality Measures Stroke: Date of last known well: Apr 12, 2023 Symptoms onset unknown: Yes SANCHEZ LUIS MD FACP FAC CCDS Apr 15, 2023 16:23
[2023-04-16] MEDS: meTOprolol INJECTION 5 MG/5 ML VIAL IV SCH ×2 (03:43→07:09)
[2023-04-16 03:51] VITALS: BP 161/84
[2023-04-16] MEDS: inSUlin ASPART 1 UNIT/0.01 ML (PER UNIT) SC SCH ×2 (06:00→12:30)
[2023-04-16 06:40] LABS: BASOPHILS # (AUTO) 0.1 10^3/uL (0.0-0.1); BASOPHILS % (AUTO) 1 % (0-10); EOSINOPHILS # (AUTO) 0.3 10^3/uL (0.0-0.3); EOSINOPHILS % (AUTO) 5 % (0-10); HEMATOCRIT 44 % (40-54); HEMOGLOBIN 14.5 g/dL (13.3-17.7); LYMPHOCYTES # (AUTO) 1.2 10^3/uL (1.0-4.0); LYMPHOCYTES % (AUTO) 16 % (12-44); MEAN CORPUSCULAR HEMOGLOBIN 29 pg (25-34); MEAN CORPUSCULAR HGB CONC 33 g/dL (32-36); MEAN CORPUSCULAR VOLUME 90 fL (80-99); MEAN PLATELET VOLUME 11.3 fL (9.0-12.2); MONOCYTES # (AUTO) 0.5 10^3/uL (0.0-1.0); MONOCYTES % (AUTO) 6 % (0-12); NEUTROPHILS # (AUTO) 5.3 10^3/uL (1.8-7.8); NEUTROPHILS % (AUTO) 72 % (42-75); PLATELET COUNT 196 10^3/uL (130-400); WHITE BLOOD COUNT 7.4 10^3/uL (4.3-11.0)
[2023-04-16 06:54] LABS: ALBUMIN 3.6 GM/DL (3.2-4.5); BILIRUBIN,TOTAL 0.7 MG/DL (0.1-1.0); CALCIUM 8.3 MG/DL (8.5-10.1); CREATININE SERUM 0.94 MG/DL (0.60-1.30); MAGNESIUM 2.2 MG/DL (1.6-2.4); POTASSIUM 4.1 MMOL/L (3.6-5.0); TOTAL PROTEIN 6.5 GM/DL (6.4-8.2)
[2023-04-16 07:09] VITALS: BP 150/91
[2023-04-16] MEDS: RT-ALBUTEROL SULF 2.5 MG/3 ML PRE-MIX VIAL INH SCH (07:35)
[2023-04-16] MEDS: ASPIRIN enteric coated 81MG TABLET PO SCH (08:33)
[2023-04-16] MEDS: CLOPIDOGREL 75 MG TABLET PO SCH (08:33)
[2023-04-16] MEDS: SENNOSIDES 8.6 MG TABLET PO SCH (08:34)
[2023-04-16] MEDS: ENOXAPARIN 120 MG/0.8 ML SYRINGE SC SCH (08:34)
--- NOTE | 2023-04-16 08:42 | Progress Note - Cardiology ---
Cardiology SOAP Progress Note Subjective: More alert this morning States he knows he's in the hospital C/O neck/shoulder pain No c/o CP Objective: I&O/Vital Signs Weight (Pounds): 213 Weight (Calculated Kilograms): 96.131839 Constitutional: No AAO x 3; well-developed, well-nourished, other (Verbally unresponsive) Respiratory: No accessory muscle use; chest expansion is symmetric, chest is bilaterally symmetric, other (fair to good bilateral air entry that is diminished at the bases) Cardiovascular: regular rate-rhythm, S1 and S2, systolic murmur (soft SAMARA at cardiac base) Gastrointestional: No tender; soft; No guarding, No rebound; audible bowel sounds Extremities: other (mild, bilat edema); No clubbing, No cyanosis Neurologic/Psychiatric: other (rightward gaze, L-sided weakness) Skin: warm/dry; No cyanosis, No cool, No diaphoresis, No rash on exposed areas, No ulcerations on exposed areas; other (large amt of bruising to face) Results/Procedures: Labs Microbiology 04/13/23 MRSA Screen - Final, Complete MRSA not isolated A/P: Assessment: Acute cerebral infarct predominantly involving the right MCA distribution - no hemorrhage reported on MRI of 04/13/23 Severe right carotid stenosis (symptomatic, given R-sided ischemic stroke) - carotid u/s of 04/13/23: right internal carotid artery of greater than 99%; 50- 69% stenosis of the left internal carotid artery PAF on tele - Echo on 04/13/23: LVEF 60-65%, mild concentric LVH Unable to swallow Plan: We recommend the following: - transfer to a tertiary care facility with neurology and neurointerventional facility (given patient's symptomatic carotid stenosis) - Start apixaban 5 mg po bid (given patient's PAF) and stop Lovenox - Currently on Lovenox, ASA and Plavix - d/t increased risk of bleeding on all 3 agents we advise that aspirin be stopped, Plavix continued d/t carotid dz as noted above - has been allowed to take oral intake - change IV BB to oral - meds being crushed, start metoprolol tartrate Monitor lab Replace electrolytes Clinical Quality Measures Stroke: Date of last known well: Apr 12, 2023 Symptoms onset unknown: Yes JULIO AYALA Apr 16, 2023 08:42
[2023-04-16] MEDS ORDERED: meTOprolol TARTRATE (IR) 50 MG TABLET PO SCH (09:00)
[2023-04-16] MEDS: DOCUSATE SODIUM 100 MG CAPSULE PO SCH (09:07)
[2023-04-16] MEDS: NS IV 1000 ML 1,000 ML IV SCH (09:33)
[2023-04-16 09:59] VITALS: BP 150/91
[2023-04-16] MEDS ORDERED: ONDA4TAB11 PO (12:03)
[2023-04-16] MEDS ORDERED: OXC5T PO (12:03)
[2023-04-16] MEDS ORDERED: ATOR80TA76 PO (12:03)
[2023-04-16] MEDS ORDERED: METO50TA15 PO (12:03)
[2023-04-16] MEDS ORDERED: APIX5TAB PO (12:03)
[2023-04-16] MEDS ORDERED: CLOP75TA28 PO (12:03)
[2023-04-16] MEDS ORDERED: LISI5TAB20 PO (12:03)
--- NOTE | 2023-04-16 12:05 | Discharge Inst-Skilled Nursing ---
Discharge Inst-Skilled NF Reconcile Patient Problems Problems Reviewed?: Yes Patient Instructions Patient Problems: CVA Goal: [place] Consult/Follow Up/Orders Follow Up Appt.: NH rounds Skilled NF Admit to: [facility] Certification (SNF) I certify that SNF services are required to be given on an inpatient basis because of the above named patient's need for longterm care on a continuing basis for the conditions(s) for which he/she was receiving inpatient hospital services prior to his/her transfer to the SNF. [facility] Facility Order: Nursing Services, Die Designer-Evaluate & Treat, Physical Therapy-Evaluate & Treat, Speech Language-Evaluate & Treat Oxygen Delivery Method: Room Air Discharge Diet: Other Diet Resuscitation Status: Do Not Resuscitate New & Resume Previous Orders New Medications: Apixaban (Eliquis) 5 Mg Tablet 5 MG PO BID, #60 TAB Atorvastatin Calcium (Atorvastatin Calcium) 80 Mg Tablet 80 MG PO DAILY, #30 TAB Metoprolol Tartrate (Metoprolol Tartrate) 50 Mg Tablet 50 MG PO BID, #60 TAB Ondansetron (Ondansetron Odt) 4 Mg Tab.rapdis 4 MG PO Q6H PRN for NAUSEA/VOMITING-1ST LINE, #10 TAB Oxycodone Hcl (Oxyir Tablet) 5 Mg Tab 5 MG PO Q4HR PRN for PAIN-SEE DOSE INSTRUCTIONS, #10 TAB Continued Medications: Clopidogrel Bisulfate (Clopidogrel) 75 Mg Tablet 75 MG PO DAILY, #30 TAB (This prescription has been renewed) Lisinopril (Lisinopril) 5 Mg Tablet 5 MG PO DAILY, #30 TAB (This prescription has been renewed) HOLD MED AND NOTIFY MD FOR SBP LESS THAN 100 OR DBP LESS THAN 60 Discontinued Medications: Amlodipine Besylate (Amlodipine Besylate) 5 Mg Tablet 5 MG PO DAILY, TAB HOLD MED AND NOTIFY MD FOR SBP LESS THAN 100 OR DBP LESS THAN 60 Atorvastatin Calcium (Atorvastatin Calcium) 40 Mg Tablet 40 MG PO HS, TAB Tania Garcia Apr 16, 2023 12:04 TANIA GARCIA DO Apr 16, 2023 12:05
--- NOTE | 2023-04-16 12:05 | Discharge Summary ---
Diagnosis/Chief Complaint Date of Admission Apr 13, 2023 at 08:27 Date of Discharge Discharge Date: Apr 16, 2023 Discharge Diagnosis Assess & Plan/Chief Complaint Ischemic stroke of the R. MCA without hemorraghic conversion Left-sided flaccid paralysis Aphasia - Etiology likely embolic, due to carotid stenosis or atrial fibrillation - CTA 04/12 with "distal right M2 occlusion" and severe carotid artery disease - MRI 04/13 with significant motion artifact and "no intraparenchymal hemorrhage" - Patient did not undergo intervention ( neurology recommendations) - Echo 04/13 showing LVH and normal EF - Patient still with 0/5 strength and no sensation of LUE and LLE - Barium swallow study today showing tolerance of pureed food PLAN: - Pureed foods and liquids as tolerated - Statin and aspirin - DAPT - PT, OT, speech Severe carotid artery disease - Severe R ICA stenosis on 04/12 CTA and 04/13 US - Moderate L ICA stenosis on 04/12 CTA and 04/13 US - Severe bilateral ECA stenosis on 04/13 US PLAN: - Outpatient stenting Paroxysmal atrial fibrillation - Rate and rhythm controllated at this time - Cardiology recommending apixaban - Continue metoprolol Acute kidney injury - resolved - Baseline of 1 - 1.29 in 2020 Reason Hospital Visit Chief complaint: CVA HPI: This is a 77-year-old male [facility] patient at [facility] who has a past medical history of dementia and severe debility who presented to the ER found on the floor for an undetermined amount of time and was found to have left side of body. He is also having rightward gaze. Stroke neurologist was contacted per protocol and upon evaluation of a possible subarachnoid hemorrhage sustained in a fall and overall clinical data he was not a tPA candidate and the bilateral carotid stenosis was not a indication for transfer to higher level of care for vascular surgery due to the stroke residual. He was found to have new onset A-fib. Discharge Summary Discharge Physical Examination Allergies: Coded Allergies: No Known Drug Allergies (Unverified , 03/14/20) Vitals & I&Os Vital Signs Date Time Temp Pulse Resp B/P (MAP) Pulse Ox O2 Delivery O2 Flow Rate FiO2 04/16/23 14:46 36.5 60 18 175/77 93 Room Air 0.00 04/16/23 09:59 21 General Appearance: Alert, Oriented X3, Cooperative Respiratory: Clear to Auscultation Cardiovascular: Regular Rate Psych/Mental Status: Mental Status NL Hospital Course Was the Problem List Reviewed?: Yes Hospital course: Patient had an uneventful hospital course after he was admitted for catastrophic CVA. Bilateral severe carotid stenosis was noted and stroke neurologist reviewed the entire case and considering his comorbidities was not a candidate for any type of intervention. Dysphagia was managed with n.p.o. status and speech therapy upgraded to pured diet. Vascular surgery appointment will be as an outpatient. Patient was placed on appropriate antibiotics for stroke prophylaxis from [facility]. Overall prognosis remains extremely poor. Labs (last 24 hrs) Laboratory Tests 04/12/23 23:32: Glucometer 190H 04/12/23 23:35: White Blood Count 14.5H, Red Blood Count 5.25, Hemoglobin 15.4, Hematocrit 48, Mean Corpuscular Volume 92, Mean Corpuscular Hemoglobin 29, Mean Corpuscular Hemoglobin Concent 32, Red Cell Distribution Width 14.0, Platelet Count 231, Mean Platelet Volume 12.8H, Immature Granulocyte % (Auto) 1, Neutrophils (%) (Auto) 86H, Lymphocytes (%) (Auto) 7L, Monocytes (%) (Auto) 5, Eosinophils (%) (Auto) 1, Basophils (%) (Auto) 0, Neutrophils # (Auto) 12.5H, Lymphocytes # (Auto) 1.0, Monocytes # (Auto) 0.8, Eosinophils # (Auto) 0.1, Basophils # (Auto) 0.1, Immature Granulocyte # (Auto) 0.1, Neutrophils % (Manual) 79, Lymphocytes % (Manual) 4, Monocytes % (Manual) 4, Band Neutrophils 10, Reactive Lymphocytes 3, Thang Cells SLIGHT, Prothrombin Time 13.8, INR Comment 1.0, Activated Partial Thromboplast Time 44H, D-Dimer 0.63H, Sodium Level 136, Potassium Level 4.0, Chloride Level 104, Carbon Dioxide Level 17L, Anion Gap 15H, Blood Urea Nitrogen 20H, Creatinine 1.46H, Estimat Glomerular Filtration Rate 49, BUN/Creatinine Ratio 14, Glucose Level 193H, Calcium Level 9.6, Corrected Calcium 9.5, Total Bilirubin 0.7, Aspartate Amino Transf (AST/SGOT) 25, Alanine Aminotransferase (ALT/SGPT) 24, Alkaline Phosphatase 87, Troponin I < 0.028, Total Protein 7.3, Albumin 4.1 04/13/23 00:01: Urine Color YELLOW, Urine Clarity CLEAR, Urine pH 5.5, Urine Specific Gordon >=1.030, Urine Protein 1+H, Urine Glucose (UA) NEGATIVE, Urine Ketones 1+H, Urine Nitrite NEGATIVE, Urine Bilirubin NEGATIVE, Urine Urobilinogen 1.0, Urine Leukocyte Esterase NEGATIVE, Urine RBC (Auto) 1+H, Urine RBC 0-2, Urine WBC NONE, Urine Crystals PRESENTH, Urine Amorphous Sediment RARE GUILHERME URATESH, Urine Bacteria NEGATIVE, Urine Casts PRESENT, Urine Hyaline Casts RARE, Urine Mucus SMALLH, Urine Culture Indicated NO 04/13/23 00:02: SARS-CoV-2 RNA (RT-PCR) Not Detected 04/13/23 06:48: Triglycerides Level 63, Cholesterol Level 116, LDL Cholesterol Direct 66, VLDL Cholesterol 13, HDL Cholesterol 44 04/13/23 09:45: White Blood Count 17.0H, Red Blood Count 5.05, Hemoglobin 15.1, Hematocrit 44, Mean Corpuscular Volume 88, Mean Corpuscular Hemoglobin 30, Mean Corpuscular Hemoglobin Concent 34, Red Cell Distribution Width 14.2, Platelet Count 224, Mean Platelet Volume 11.7, Immature Granulocyte % (Auto) 0, Neutrophils (%) (Auto) 36L, Lymphocytes (%) (Auto) 3L, Monocytes (%) (Auto) 5, Eosinophils (%) (Auto) 56H, Basophils (%) (Auto) 0, Neutrophils # (Auto) 6.1, Lymphocytes # (Auto) 0.5L, Monocytes # (Auto) 0.8, Eosinophils # (Auto) 9.6H, Basophils # (Auto) 0.0, Immature Granulocyte # (Auto) 0.0, Sodium Level 133L, Potassium Level 5.3H, Chloride Level 106, Carbon Dioxide Level 17L, Anion Gap 10, Blood Urea Nitrogen 15, Creatinine 1.19, Estimat Glomerular Filtration Rate 63, BUN/Creatinine Ratio 13, Glucose Level 143H, Calcium Level 8.8, Corrected Calcium 8.9, Total Bilirubin 0.8, Aspartate Amino Transf (AST/SGOT) 69H, Alanine Aminotransferase (ALT/SGPT) 27, Alkaline Phosphatase 76, Total Protein 7.8, Albumin 3.9 04/13/23 10:03: Glucometer 141H 04/13/23 15:25: Glucometer 131H 04/13/23 21:04: Glucometer 109 04/14/23 04:22: White Blood Count 10.8, Red Blood Count 4.78, Hemoglobin 14.0, Hematocrit 45, Mean Corpuscular Volume 94, Mean Corpuscular Hemoglobin 29, Mean Corpuscular Hemoglobin Concent 31L, Red Cell Distribution Width 14.3, Platelet Count 175, Mean Platelet Volume 12.0, Immature Granulocyte % (Auto) 0, Neutrophils (%) (Auto) 85H, Lymphocytes (%) (Auto) 7L, Monocytes (%) (Auto) 7, Eosinophils (%) (Auto) 0, Basophils (%) (Auto) 0, Neutrophils # (Auto) 9.2H, Lymphocytes # (Auto) 0.8L, Monocytes # (Auto) 0.7, Eosinophils # (Auto) 0.0, Basophils # (Auto) 0.0, Immature Granulocyte # (Auto) 0.0, Sodium Level 135, Potassium Level 4.6, Chloride Level 107, Carbon Dioxide Level 18L, Anion Gap 10, Blood Urea Nitrogen 13, Creatinine 0.97, Estimat Glomerular Filtration Rate 80, BUN/Creatinine Ratio 13, Glucose Level 113H, Calcium Level 8.5, Corrected Calcium 8.9, Phosphorus Level 2.1L, Magnesium Level 1.8, Total Bilirubin 1.0, Aspartate Amino Transf (AST/SGOT) 73H, Alanine Aminotransferase (ALT/SGPT) 28, Alkaline Phosphatase 77, Total Protein 6.4, Albumin 3.5 04/14/23 11:14: Glucometer 108 04/14/23 16:02: Glucometer 103 04/14/23 20:04: Glucometer 108 04/15/23 05:06: White Blood Count 8.5, Red Blood Count 4.93, Hemoglobin 14.5, Hematocrit 44, Mean Corpuscular Volume 90, Mean Corpuscular Hemoglobin 29, Mean Corpuscular Hemoglobin Concent 33, Red Cell Distribution Width 14.0, Platelet Count 182, Mean Platelet Volume 12.1, Immature Granulocyte % (Auto) 0, Neutrophils (%) (Auto) 79H, Lymphocytes (%) (Auto) 12, Monocytes (%) (Auto) 7, Eosinophils (%) (Auto) 2, Basophils (%) (Auto) 1, Neutrophils # (Auto) 6.7, Lymphocytes # (Auto) 1.0, Monocytes # (Auto) 0.6, Eosinophils # (Auto) 0.2, Basophils # (Auto) 0.1, Immature Granulocyte # (Auto) 0.0, Sodium Level 137, Potassium Level 3.8, Chloride Level 109H, Carbon Dioxide Level 19L, Anion Gap 9, Blood Urea Nitrogen 17, Creatinine 1.07, Estimat Glomerular Filtration Rate 71, BUN/Creatinine Ratio 16, Glucose Level 94, Calcium Level 8.4L, Corrected Calcium 8.6, Magnesium Level 2.4, Total Bilirubin 0.7, Aspartate Amino Transf (AST/SGOT) 65H, Alanine Aminotransferase (ALT/SGPT) 33, Alkaline Phosphatase 78, Total Protein 6.6, Albumin 3.7 04/15/23 05:13: Glucometer 91 04/15/23 10:47: Glucometer 90 04/15/23 15:30: Glucometer 82 04/15/23 20:22: Glucometer 94 04/16/23 06:00: Glucometer 94 04/16/23 06:15: White Blood Count 7.4, Red Blood Count 4.93, Hemoglobin 14.5, Hematocrit 44, Mean Corpuscular Volume 90, Mean Corpuscular Hemoglobin 29, Mean Corpuscular Hemoglobin Concent 33, Red Cell Distribution Width 13.8, Platelet Count 196, Mean Platelet Volume 11.3, Immature Granulocyte % (Auto) 0, Neutrophils (%) (Auto) 72, Lymphocytes (%) (Auto) 16, Monocytes (%) (Auto) 6, Eosinophils (%) (Auto) 5, Basophils (%) (Auto) 1, Neutrophils # (Auto) 5.3, Lymphocytes # (Auto) 1.2, Monocytes # (Auto) 0.5, Eosinophils # (Auto) 0.3, Basophils # (Auto) 0.1, Immature Granulocyte # (Auto) 0.0, Sodium Level 138, Potassium Level 4.1, Chloride Level 111H, Carbon Dioxide Level 17L, Anion Gap 10, Blood Urea Nitrogen 17, Creatinine 0.94, Estimat Glomerular Filtration Rate 83, BUN/Creatinine Ratio 18, Glucose Level 89, Calcium Level 8.3L, Corrected Calcium 8.6, Magnesium Level 2.2, Total Bilirubin 0.7, Aspartate Amino Transf (AST/SGOT) 49H, Alanine Aminotransferase (ALT/SGPT) 33, Alkaline Phosphatase 72, Total Protein 6.5, Albumin 3.6 04/16/23 10:42: Glucometer 99 Microbiology 04/13/23 MRSA Screen - Final, Complete MRSA not isolated Pending Labs Microbiology Date/Time Source Procedure Growth Status 04/13/23 08:45 Nasal MRSA Screen - Final MRSA not isolated Complete Laboratory Tests 04/12/23 23:32: Glucometer 190 04/12/23 23:35: White Blood Count 14.5, Red Blood Count 5.25, Hemoglobin 15.4, Hematocrit 48, Mean Corpuscular Volume 92, Mean Corpuscular Hemoglobin 29, Mean Corpuscular He moglobin Concent 32, Red Cell Distribution Width 14.0, Platelet Count 231, Mean Platelet Volume 12.8, Immature Granulocyte % (Auto) 1, Neutrophils (%) (Auto) 86, Lymphocytes (%) (Auto) 7, Monocytes (%) (Auto) 5, Eosinophils (%) (Auto) 1, Basophils (%) (Auto) 0, Neutrophils # (Auto) 12.5, Lymphocytes # (Auto) 1.0, Monocytes # (Auto) 0.8, Eosinophils # (Auto) 0.1, Basophils # (Auto) 0.1, Immature Granulocyte # (Auto) 0.1, Neutrophils % (Manual) 79, Lymphocytes % (Manual) 4, Monocytes % (Manual) 4, Band Neutrophils 10, Reactive Lymphocytes 3, Turner Cells SLIGHT, Prothrombin Time 13.8, INR Comment 1.0, Activated Partial Thromboplast Time 44, D-Dimer 0.63, Sodium Level 136, Potassium Level 4.0, Chloride Level 104, Carbon Dioxide Level 17, Anion Gap 15, Blood Urea Nitrogen 20, Creatinine 1.46, Estimat Glomerular Filtration Rate 49, BUN/Creatinine Ratio 14, Glucose Level 193, Calcium Level 9.6, Corrected Calcium 9.5, Total Bilirubin 0.7, Aspartate Amino Transf (AST/SGOT) 25, Alanine Aminotransferase (ALT/SGPT) 24, Alkaline Phosphatase 87, Troponin I < 0.028, Total Protein 7.3, Albumin 4.1 04/13/23 00:01: Urine Color YELLOW, Urine Clarity CLEAR, Urine pH 5.5, Urine Specific Gordon >=1.030, Urine Protein 1+, Urine Glucose (UA) NEGATIVE, Urine Ketones 1+, Urine Nitrite NEGATIVE, Urine Bilirubin NEGATIVE, Urine Urobilinogen 1.0, Urine Leukocyte Esterase NEGATIVE, Urine RBC (Auto) 1+, Urine RBC 0-2, Urine WBC NONE, Urine Crystals PRESENT, Urine Amorphous Sediment RARE GUILHERME URATES, Urine Bacteria NEGATIVE, Urine Casts PRESENT, Urine Hyaline Casts RARE, Urine Mucus SMALL, Urine Culture Indicated NO 04/13/23 00:02: SARS-CoV-2 RNA (RT-PCR) Not Detected 04/13/23 06:48: Triglycerides Level 63, Cholesterol Level 116, LDL Cholesterol Direct 66, VLDL Cholesterol 13, HDL Cholesterol 44 04/13/23 09:45: White Blood Count 17.0, Red Blood Count 5.05, Hemoglobin 15.1, Hematocrit 44, Mean Corpuscular Volume 88, Mean Corpuscular Hemoglobin 30, Mean Corpuscular Hemoglobin Concent 34, Red Cell Distribution Width 14.2, Platelet Count 224, Mean Platelet Volume 11.7, Immature Granulocyte % (Auto) 0, Neutrophils (%) (Auto) 36, Lymphocytes (%) (Auto) 3, Monocytes (%) (Auto) 5, Eosinophils (%) (Auto) 56, Basophils (%) (Auto) 0, Neutrophils # (Auto) 6.1, Lymphocytes # (Auto) 0.5, Monocytes # (Auto) 0.8, Eosinophils # (Auto) 9.6, Basophils # (Auto) 0.0, Immature Granulocyte # (Auto) 0.0, Sodium Level 133, Potassium Level 5.3, Chloride Level 106, Carbon Dioxide Level 17, Anion Gap 10, Blood Urea Nitrogen 15, Creatinine 1.19, Estimat Glomerular Filtration Rate 63, BUN/Creatinine Ratio 13, Glucose Level 143, Calcium Level 8.8, Corrected Calcium 8.9, Total Bilirubin 0.8, Aspartate Amino Transf (AST/SGOT) 69, Alanine Aminotransferase (ALT/SGPT) 27, Alkaline Phosphatase 76, Total Protein 7.8, Albumin 3.9 04/13/23 10:03: Glucometer 141 04/13/23 15:25: Glucometer 131 04/13/23 21:04: Glucometer 109 04/14/23 04:22: White Blood Count 10.8, Red Blood Count 4.78, Hemoglobin 14.0, Hematocrit 45, Mean Corpuscular Volume 94, Mean Corpuscular Hemoglobin 29, Mean Corpuscular Hemoglobin Concent 31, Red Cell Distribution Width 14.3, Platelet Count 175, Mean Platelet Volume 12.0, Immature Granulocyte % (Auto) 0, Neutrophils (%) (Auto) 85, Lymphocytes (%) (Auto) 7, Monocytes (%) (Auto) 7, Eosinophils (%) (Auto) 0, Basophils (%) (Auto) 0, Neutrophils # (Auto) 9.2, Lymphocytes # (Auto) 0.8, Monocytes # (Auto) 0.7, Eosinophils # (Auto) 0.0, Basophils # (Auto) 0.0, Immature Granulocyte # (Auto) 0.0, Sodium Level 135, Potassium Level 4.6, Chloride Level 107, Carbon Dioxide Level 18, Anion Gap 10, Blood Urea Nitrogen 13, Creatinine 0.97, Estimat Glomerular Filtration Rate 80, BUN/Creatinine Ratio 13, Glucose Level 113, Calcium Level 8.5, Corrected Calcium 8.9, Phosphorus Level 2.1, Magnesium Level 1.8, Total Bilirubin 1.0, Aspartate Amino Transf (AST/SGOT) 73, Alanine Aminotransferase (ALT/SGPT) 28, Alkaline Phosphatase 77, Total Protein 6.4, Albumin 3.5 04/14/23 11:14: Glucometer 108 04/14/23 16:02: Glucometer 103 04/14/23 20:04: Glucometer 108 04/15/23 05:06: White Blood Count 8.5, Red Blood Count 4.93, Hemoglobin 14.5, Hematocrit 44, Mean Corpuscular Volume 90, Mean Corpuscular Hemoglobin 29, Mean Corpuscular Hemoglobin Concent 33, Red Cell Distribution Width 14.0, Platelet Count 182, Mean Platelet Volume 12.1, Immature Granulocyte % (Auto) 0, Neutrophils (%) (Auto) 79, Lymphocytes (%) (Auto) 12, Monocytes (%) (Auto) 7, Eosinophils (%) (Auto) 2, Basophils (%) (Auto) 1, Neutrophils # (Auto) 6.7, Lymphocytes # (Auto) 1.0, Monocytes # (Auto) 0.6, Eosinophils # (Auto) 0.2, Basophils # (Auto) 0.1, Immature Granulocyte # (Auto) 0.0, Sodium Level 137, Potassium Level 3.8, Chloride Level 109, Carbon Dioxide Level 19, Anion Gap 9, Blood Urea Nitrogen 17, Creatinine 1.07, Estimat Glomerular Filtration Rate 71, BUN/Creatinine Ratio 16, Glucose Level 94, Calcium Level 8.4, Corrected Calcium 8.6, Magnesium Level 2.4, Total Bilirubin 0.7, Aspartate Amino Transf (AST/SGOT) 65, Alanine Am inotransferase (ALT/SGPT) 33, Alkaline Phosphatase 78, Total Protein 6.6, Albumin 3.7 04/15/23 05:13: Glucometer 91 04/15/23 10:47: Glucometer 90 04/15/23 15:30: Glucometer 82 04/15/23 20:22: Glucometer 94 04/16/23 06:00: Glucometer 94 04/16/23 06:15: White Blood Count 7.4, Red Blood Count 4.93, Hemoglobin 14.5, Hematocrit 44, Mean Corpuscular Volume 90, Mean Corpuscular Hemoglobin 29, Mean Corpuscular Hemoglobin Concent 33, Red Cell Distribution Width 13.8, Platelet Count 196, Mean Platelet Volume 11.3, Immature Granulocyte % (Auto) 0, Neutrophils (%) (Auto) 72, Lymphocytes (%) (Auto) 16, Monocytes (%) (Auto) 6, Eosinophils (%) (Auto) 5, Basophils (%) (Auto) 1, Neutrophils # (Auto) 5.3, Lymphocytes # (Auto) 1.2, Monocytes # (Auto) 0.5, Eosinophils # (Auto) 0.3, Basophils # (Auto) 0.1, Immature Granulocyte # (Auto) 0.0, Sodium Level 138, Potassium Level 4.1, Chloride Level 111, Carbon Dioxide Level 17, Anion Gap 10, Blood Urea Nitrogen 17, Creatinine 0.94, Estimat Glomerular Filtration Rate 83, BUN/Creatinine Ratio 18, Glucose Level 89, Calcium Level 8.3, Corrected Calcium 8.6, Magnesium Level 2.2, Total Bilirubin 0.7, Aspartate Amino Transf (AST/SGOT) 49, Alanine Aminotransferase (ALT/SGPT) 33, Alkaline Phosphatase 72, Total Protein 6.5, Albumin 3.6 04/16/23 10:42: Glucometer 99 Discharge Home Medications: Active Scripts Active Ondansetron Odt (Ondansetron) 4 Mg Tab.rapdis 4 Mg PO Q6H PRN Oxyir Tablet (Oxycodone HCl) 5 Mg Tab 5 Mg PO Q4HR PRN Metoprolol Tartrate 50 Mg Tablet 50 Mg PO BID Atorvastatin Calcium 80 Mg Tablet 80 Mg PO DAILY Eliquis (Apixaban) 5 Mg Tablet 5 Mg PO BID Clopidogrel (Clopidogrel Bisulfate) 75 Mg Tablet 75 Mg PO DAILY Lisinopril 5 Mg Tablet 5 Mg PO DAILY HOLD MED AND NOTIFY MD FOR SBP LESS THAN 100 OR DBP LESS THAN 60 Instructions to patient/family Please see electronic discharge instructions given to patient. Clinical Quality Measures DVT/VTE Risk/Contraindication: Contraindications-Pharm: Other *list below* Other: brain bleed Stroke: Date of last known well: Apr 12, 2023 Symptoms onset unknown: Yes QIANA WEINER DO Apr 16, 2023 12:05
[2023-04-16 12:12] VITALS: BP 175/77
[2023-04-16 14:46] VITALS: BP 175/77
[2023-04-16] MEDS ORDERED: APIXABAN 5 MG TABLET PO SCH (21:00)
== END 2023-04-16 15:10 | DRG 65 ==
LOC: EDUNIT# 23:25 → ER 23:27 → ICU 04-13 08:27 → 4TH 04-14 19:15
PROVIDERS: ADMIT Internal Medicine; ATTEND Internal Medicine
DX: I63.511 Cerebral infarction due to unspecified occlusion or stenosis of right middle cerebral artery (principal); G81.04 Flaccid hemiplegia affecting left nondominant side; N17.9 Acute kidney failure, unspecified; R41.4 Neurologic neglect syndrome; R47.01 Aphasia; R29.810 Facial weakness; R13.10 Dysphagia, unspecified; R29.715 NIHSS score 15; S00.03XA Contusion of scalp, initial encounter; I48.0 Paroxysmal atrial fibrillation; I65.23 Occlusion and stenosis of bilateral carotid arteries; F03.90 Unspecified dementia, unspecified severity, without behavioral disturbance, psychotic disturbance, mood disturbance, and anxiety; I49.3 Ventricular premature depolarization; F32.A Depression, unspecified; H91.90 Unspecified hearing loss, unspecified ear; H54.3 Unqualified visual loss, both eyes; M19.90 Unspecified osteoarthritis, unspecified site; Z79.02 Long term (current) use of antithrombotics/antiplatelets; Z79.899 Other long term (current) drug therapy; W19.XXXA Unspecified fall, initial encounter; Y92.122 Bedroom in nursing home as the place of occurrence of the external cause
CPT/HCPCS: 0042T; 36415; 51702; 70450; 70496; 70498; 70551; 71045; 74230; 80053; 80061; 81000; 82947; 83735; 84100; 84484; 85007; 85025; 85027; 85379; 85610; 85730; 87081; 87636; 93005; 93041; 93306; 93880; 94640; 94760; 96361; 96365; 96366